=== PATIENT | female | born 1950 | race Caucasian/White ===

== ENCOUNTER 2017-07-20 18:43 | Emergency (ER) | payer BC, OTHER ==
--- NOTE | 2017-07-20 19:44 | RAD REPORT ---
EXAM DESCRIPTION: RAD - Ribs Right - 07/20/2017 7:29 pm CLINICAL HISTORY: History of fall, chest pain COMPARISON: None. FINDINGS: The bones are quite osteopenic. Linear opacities are present in the right lung. A small am ount of pleural fluid is probably present as well. No displaced fracture is clearly seen, however ass essment is limited by the degree of osteopenia. If further evaluation is clinically needed, noncontra st CT chest may be considered.
--- NOTE | 2017-07-20 19:53 | ER ---
Nurse's Notes [facility] Name: Shannan Patel Age: 67 yrs Sex: Female : 1950 Arrival Date: 07/20/2017 Time: 18:43 Bed 25 Private MD: Husam Valente E Diagnosis: Fall (on) (from) unspecified stairs and steps;Contusion of right back wall of thorax;Chronic obstructive pulmonary disease, unspecified Presentation: 07/20 18:57 Presenting complaint: Patient states: i fell a couple of days ago and hit my R rib area hj to the bath tub, hit head but denies LOC; denies taking blood thinners; pain 02/11;. Transition of care: patient was not received from another setting of care. Onset of symptoms was July 20, 2017. Care prior to arrival: None. 18:57 Method Of Arrival: Ambulatory 18:57 Acuity: DEVANTE 4 hj Triage Assessment: 19:00 General: Appears in no apparent distress. uncomfortable, Behavior is calm, cooperative, hj appropriate for age. Pain: Complains of pain in right mid back and right low back. Historical: - Allergies: 19:00 Codeine (Hives); hj - Home Meds: 19:00 diclofenac sodium 75 mg Oral TbEC 1 tab 2 times per day [Active]; doxepin 25 mg Oral hj cap 1 cap once daily [Active]; [place] 10-325 mg Oral tab 1 tab every 4-6 hours for Pain [Active]; omeprazole 40 mg Oral cpDR 1 cap once daily [Active]; Stiolto Respimat 2.5-2.5 mcg/actuation inhalation mist 2 puffs once daily [Active]; - PMHx: 19:00 cervical cancer; COPD; degenerative bone disease; Gastric Reflux; Herniated disc; hj ovarian cancer; Pneumonia; sciatica; - PSHx: 19:00 Hysterectomy; Tubal ligation; L hand; R foot; R ear; hj - Immunization history:: Adult Immunizations up to date. - Social history:: Smoking status: Patient uses tobacco products, denies chronic smoking, but will smoke occasionally, Patient uses Patient/guardian denies using alcohol, street drugs. Screenin:15 Abuse screen: Denies threats or abuse. Nutritional screening: No deficits noted. tl3 Tuberculosis screening: No symptoms or risk factors identified. Fall Risk Fall in past 12 months (25 points). Assessment: 19:15 General: Appears uncomfortable, well groomed, well developed, well nourished, Behavior tl3 is calm, cooperative, appropriate for age. Pain:. Neuro: Level of Consciousness is awake, alert, obeys commands. 19:15 Cardiovascular: Heart tones S1 S2 present Capillary refill < 3 seconds. Respiratory: tl3 Airway is patent Trachea midline Breath sounds are clear bilaterally. GI: Abdomen is round non-distended, Bowel sounds present X 4 quads. : No signs and/or symptoms were reported regarding the genitourinary system. EENT: No signs and/or symptoms were reported regarding the EENT system. Derm: No signs and/or symptoms reported regarding the dermatologic system. Musculoskeletal: Reports since pt slipped in bathroom three days ago and hit right side of ribs. 20:36 Reassessment: No changes from previously documented assessment. Patient and/or family tl3 updated on plan of care and expected duration. Pain level reassessed. Patient is alert, oriented x 3, equal unlabored respirations, skin warm/dry/pink. pt instructed on use of incintive spirometer, encouraged to use every hour while awake, also encouraged to encourage pt to use spirimoter. Vital Signs: 19:01 BP 130 / 83; Pulse 75; Resp 18; Temp 98.7(TE); Pulse Ox 96% on R/A; Weight 81.65 kg; hj Height 5 ft. 8 in. (172.72 cm); Pain 10/10; 20:30 BP 149 / 71; Pulse 71; Resp 18; Pulse Ox 98% on R/A; tl3 19:01 Body Mass Index 27.37 (81.65 kg, 172.72 cm) ED Course: 18:43 Patient arrived in ED. mr 18:44 Husam Valente MD is Private Physician. mr 18:52 [facility]C [facility] snw 18:52 Ezra Ye MD is Attending Physician. snw 18:58 Triage completed. hj 19:01 Arm band placed on right wrist. hj 19:12 Sadie Hassan, LUZ ELENA is Primary Nurse. tl3 19:15 Resting quietly. tl3 19:15 Patient has correct armband on for positive identification. Bed in low position. Call tl3 light in reach. Side rails up X2. Adult w/ patient. Door closed. Lights dimmed. Warm blanket given. 19:15 No provider procedures requiring assistance completed. Patient did not have IV access tl3 during this emergency room visit. 19:19 Patient moved to radiology via wheelchair. tl3 19:25 X-ray completed. Patient tolerated procedure well. tm4 19:50 Husam Valente MD is Referral Physician. snw 20:01 INCENTIVE SPIROMETRY Sent. tl3 Administered Medications: 20:28 Drug: morphine 4 mg {Note: prepared first 4mg of morphine for iv administration, tl3 watsted in pyxis.} Route: IM; Site: left gluteus; 21:40 Follow up: Response: No adverse reaction; Pain is decreased tl3 20:28 Drug: Zithromax 500 mg Route: PO; tl3 20:38 Follow up: Response: No adverse reaction tl3 Outcome: 19:52 Discharge ordered by . snw 21:42 Patient left the ED. tl3 07/21 00:12 Discharged to home via wheelchair, with significant other. tl3 Condition: stable Discharge instructions given to patient, family, Instructed on discharge instructions, Demonstrated understanding of instructions, follow-up care, medications, Prescriptions given X 1, 2. Signatures: Gala Lamas, BODY LINE FINISHER-C BODY LINE FINISHER-Csnw Yeni Castañeda Caryn Lara tm4 Jose Feliciano RN RN Sadie Kerns RN RN tl3 Corrections: (The following items were deleted from the chart) 07/20 19:03 19:01 Pulse 75bpm; Resp 18bpm; Pulse Ox 96% RA; Temp 98.7F Temporal; 81.65 kg; Height 5 hj ft. 8 in.; BMI: 27.3; Pain 10/10; hj
--- NOTE | 2017-07-20 19:53 | EDPHYS ---
Physician Documentation [facility] Name: Shannan Patel Age: 67 yrs Sex: Female : 1950 Arrival Date: 07/20/2017 Time: 18:43 Bed 25 Private MD: Husam Valente E ED Physician Ezra Ye HPI: 07/20 19:57 This 67 yrs old Female presents to ER via Ambulatory with complaints of Rib snw Pain. 19:57 Onset: The symptoms/episode began/occurred suddenly, 3 day(s) ago, and became snw persistent. Associated signs and symptoms: The patient has no apparent associated signs or symptoms. Modifying factors: The patient symptoms are alleviated by nothing. It is unknown whether or not the patient has had similar symptoms in the past. Sees Dr. Chiki Dewitt for pain mgmt and also Dr. Gerhard Dewitt for pulmonology. Historical: - Allergies: 19:00 Codeine (Hives); hj - Home Meds: 19:00 diclofenac sodium 75 mg Oral TbEC 1 tab 2 times per day [Active]; doxepin 25 mg Oral hj cap 1 cap once daily [Active]; [place] 10-325 mg Oral tab 1 tab every 4-6 hours for Pain [Active]; omeprazole 40 mg Oral cpDR 1 cap once daily [Active]; Stiolto Respimat 2.5-2.5 mcg/actuation inhalation mist 2 puffs once daily [Active]; - PMHx: 19:00 cervical cancer; COPD; degenerative bone disease; Gastric Reflux; Herniated disc; hj ovarian cancer; Pneumonia; sciatica; - PSHx: 19:00 Hysterectomy; Tubal ligation; L hand; R foot; R ear; hj - Immunization history:: Adult Immunizations up to date. - Social history:: Smoking status: Patient uses tobacco products, denies chronic smoking, but will smoke occasionally, Patient uses Patient/guardian denies using alcohol, street drugs. ROS: 19:57 Constitutional: Negative for fever, chills, and weight loss, Eyes: Negative for injury, snw pain, redness, and discharge, ENT: Negative for injury, pain, and discharge, Neck: Negative for injury, pain, and swelling, Cardiovascular: Negative for chest pain, palpitations, and edema, Respiratory: Negative for shortness of breath, cough, wheezing, and pleuritic chest pain, Abdomen/GI: Negative for abdominal pain, nausea, vomiting, diarrhea, and constipation, : Negative for injury, bleeding, discharge, and swelling, MS/Extremity: Negative for injury and deformity, Skin: Negative for injury, rash, and discoloration, Neuro: Negative for headache, weakness, numbness, tingling, and seizure. 19:57 Back: Positive for injury or acute deformity, pain at rest, pain with movement, of the right subscapular area and right mid back. Exam: 19:54 Constitutional: This is a well developed, well nourished patient who is awake, alert, snw and in no acute distress. Head/Face: Normocephalic, atraumatic. Eyes: Pupils equal round and reactive to light, extra-ocular motions intact. Lids and lashes normal. Conjunctiva and sclera are non-icteric and not injected. Cornea within normal limits. Periorbital areas with no swelling, redness, or edema. ENT: Nares patent. No nasal discharge, no septal abnormalities noted. Tympanic membranes are normal and external auditory canals are clear. Oropharynx with no redness, swelling, or masses, exudates, or evidence of obstruction, uvula midline. Mucous membranes moist. Neck: Trachea midline, no thyromegaly or masses palpated, and no cervical lymphadenopathy. Supple, full range of motion without nuchal rigidity, or vertebral point tenderness. No Meningismus. Chest/axilla: Normal chest wall appearance and motion. Nontender with no deformity. No lesions are appreciated. Cardiovascular: Regular rate and rhythm with a normal S1 and S2. No gallops, murmurs, or rubs. Normal PMI, no JVD. No pulse deficits. Abdomen/GI: Soft, non-tender, with normal bowel sounds. No distension or tympany. No guarding or rebound. No evidence of tenderness throughout. Skin: Warm, dry with normal turgor. Normal color with no rashes, no lesions, and no evidence of cellulitis. MS/ Extremity: Pulses equal, no cyanosis. Neurovascular intact. Full, normal range of motion. Neuro: Awake and alert, GCS 15, oriented to person, place, time, and situation. Cranial nerves II-XII grossly intact. Motor strength 5/5 in all extremities. Sensory grossly intact. Cerebellar exam normal. Normal gait. Psych: Awake, alert, with orientation to person, place and time. Behavior, mood, and affect are within normal limits. 19:54 Respiratory: the patient does not display signs of respiratory distress, Respirations: shallow respirations, that is mild, that is moderate, Breath sounds: are clear throughout. Vital Signs: 19:01 BP 130 / 83; Pulse 75; Resp 18; Temp 98.7(TE); Pulse Ox 96% on R/A; Weight 81.65 kg; hj Height 5 ft. 8 in. (172.72 cm); Pain 10/10; 20:30 BP 149 / 71; Pulse 71; Resp 18; Pulse Ox 98% on R/A; tl3 19:01 Body Mass Index 27.37 (81.65 kg, 172.72 cm) hj MDM: 19:03 Patient medically screened. snw 19:55 Data reviewed: vital signs, nurses notes. Data interpreted: Pulse oximetry: on room air snw is 96 %. Interpretation: normal. Counseling: I had a detailed discussion with the patient and/or guardian regarding: the historical points, exam findings, and any diagnostic results supporting the discharge/admit diagnosis, the presence of at least one elevated blood pressure reading (>120/80) during this emergency department visit, radiology results, the need for outpatient follow up, to return to the emergency department if symptoms worsen or persist or if there are any questions or concerns that arise at home. Special discussion: Based on the history and exam findings, there is no indication for further emergent testing or inpatient evaluation. I discussed with the patient/guardian the need to see the [employer] for further evaluation of the symptoms. I discussed with the patient/guardian the need to see the primary care provider for further evaluation of the symptoms. 07/20 19:05 Order name: Ribs Right XRAY snw 07/20 19:44 Order name: RAD; Complete Time: 19:48 EDMS 07/20 19:50 Order name: INCENTIVE SPIROMETRY snw Administered Medications: 20:28 Drug: morphine 4 mg {Note: prepared first 4mg of morphine for iv administration, tl3 watsted in pyxis.} Route: IM; Site: left gluteus; 21:40 Follow up: Response: No adverse reaction; Pain is decreased tl3 20:28 Drug: Zithromax 500 mg Route: PO; tl3 20:38 Follow up: Response: No adverse reaction tl3 Disposition: 07/21 10:58 Co-signature as Attending Physician, Ezra Ye MD I agree with the assessment and [facility] plan of care. Disposition: 07/20/17 19:52 Discharged to Home. Impression: Fall (on) (from) unspecified stairs and steps, Contusion of right back wall of thorax, Chronic obstructive pulmonary disease, unspecified. - Condition is Stable. - Discharge Instructions: Rib Contusion, Chronic Obstructive Pulmonary Disease, Fall Prevention and Home Safety. - Prescriptions for Albuterol Sulfate 90 mcg/actuation - inhale 1-2 puff by INHALATION route every 4-6 hours; 1 Inhaler. Zithromax 500 mg Oral Tablet - take 1 tablet by ORAL route once daily for 5 days; 5 tablet. - Medication Reconciliation Form, Thank You Letter, Antibiotic Education, Prescription Opioid Use form. - Follow up: Husam Valente MD; When: 2 - 3 days; Reason: Recheck today's complaints, Continuance of care, Re-evaluation by your physician. Follow up: Emergency Department; When: As needed; Reason: Worsening of condition. Signatures: Dispatcher [employer] Ezra Parish MD MD cha Therrien, Shelly, NEMATOLOGIST-C NEMATOLOGIST-Csnw Jose Feliciano, Sadie Srinivasan RN, RN RN tl3
[2017-07-20] MEDS ORDERED: AZITHROMYCIN 250 MG TAB ONE (20:22)
[2017-07-20] MEDS ORDERED: MORPHINE 4 MG/ML SYR ONE ×2 (20:23→20:42)
[2017-07-20 21:54] VITALS: TEMP 98.7
[2017-07-20 21:55] VITALS: BP 149/71; O2SAT 98
== END 2017-07-20 21:42 | disposition home or self-care (01) ==
LOC: ER 18:43
DX: S20.221A Contusion of right back wall of thorax, initial encounter (principal); J44.9 Chronic obstructive pulmonary disease, unspecified; W10.9XXA Fall (on) (from) unspecified stairs and steps, initial encounter; Y93.9 Activity, unspecified; Y92.89 Other specified places as the place of occurrence of the external cause; Z88.5 Allergy status to narcotic agent; Z85.41 Personal history of malignant neoplasm of cervix uteri; Z85.43 Personal history of malignant neoplasm of ovary; Z72.0 Tobacco use
CPT/HCPCS: 96372; 99283

== ENCOUNTER 2017-08-13 21:26 | Observation (INO) | payer BC, OTHER ==
--- NOTE | 2017-08-13 22:34 | ER ---
Nurse's Notes [facility] Name: Shannan Patel Age: 67 yrs Sex: Female : 1950 Arrival Date: 08/13/2017 Time: 21:28 Bed 5 Private MD: Husam Valente E Diagnosis: Chronic obstructive pulmonary disease with (acute) exacerbation;Hypoxemia Presentation: 08/13 21:31 Presenting complaint: Patient states: SOB and lightheaded since this am. States she is aa1 also having a productive cough. Transition of care: patient was not received from another setting of care. Onset of symptoms was August 13, 2017. Care prior to arrival: None. 21:31 Method Of Arrival: Ambulatory aa1 21:31 Acuity: DEVANTE 3 aa1 Triage Assessment: 21:33 General: Appears in no apparent distress. comfortable, Behavior is calm, cooperative, aa1 appropriate for age. 23:35 Respiratory: Reports cough that is productive, pain with cough Onset: The bp symptoms/episode began/occurred 5 days, the patient has moderate shortness of breath. Historical: - Allergies: 21:33 Codeine (Hives); aa1 - Home Meds: 21:33 diclofenac sodium 75 mg Oral TbEC 1 tab 2 times per day [Active]; doxepin 25 mg Oral aa1 cap 1 cap once daily [Active]; [place] 10-325 mg Oral tab 1 tab every 4-6 hours for Pain [Active]; omeprazole 40 mg Oral cpDR 1 cap once daily [Active]; Stiolto Respimat 2.5-2.5 mcg/actuation inhalation mist 2 puffs once daily [Active]; [place] 500-20 mg Oral TbID 1 tab 2 times per day [Active]; - PMHx: 21:33 cervical cancer; COPD; degenerative bone disease; Gastric Reflux; Herniated disc; aa1 ovarian cancer; Pneumonia; sciatica; - PSHx: 21:33 Hysterectomy; Tubal ligation; L hand; R foot; R ear; aa1 - Immunization history:: Flu vaccine is up to date. - Social history:: Smoking status: Patient uses tobacco products, denies chronic smoking, but will smoke occasionally. - Family history:: not pertinent. Screenin:34 Abuse screen: Denies threats or abuse. Denies injuries from another. Nutritional bp screening: No deficits noted. Tuberculosis screening: No symptoms or risk factors identified. Fall Risk None identified. Assessment: 22:00 General: Appears distressed, comfortable, obese, Behavior is cooperative, appropriate bp for age, anxious. Pain: Complains of pain in abdomen. Neuro: Level of Consciousness is awake, alert, obeys commands, Oriented to person, place, time, situation, Appropriate for age. Cardiovascular: Rhythm is sinus rhythm. Respiratory: Airway is patent Respiratory effort is labored, Respiratory pattern is tachypnea Breath sounds with crackles. GI: No signs and/or symptoms were reported involving the gastrointestinal system. : No signs and/or symptoms were reported regarding the genitourinary system. EENT: No deficits noted. Derm: No deficits noted. Musculoskeletal: Circulation, motion, and sensation intact. Range of motion: intact in all extremities. Vital Signs: 21:33 BP 134 / 94; Pulse 91; Resp 24; Temp 98.7(O); Pulse Ox 95% on R/A; Weight 79.38 kg; aa1 Height 5 ft. 8 in. (172.72 cm); Pain 10/10; 22:30 BP 142 / 82; Pulse 81; Resp 19; Pulse Ox 95% ; bp 23:30 BP 121 / 72; Pulse 81; Resp 18; Pulse Ox 100% ; bp 21:33 Body Mass Index 26.61 (79.38 kg, 172.72 cm) aa1 ED Course: 21:28 Patient arrived in ED. as 21:28 Husam Valente MD is Private Physician. as 21:32 Triage completed. aa1 21:33 Arm band placed on right wrist. Patient placed in an exam room, on a stretcher. aa1 21:37 Cecilio Albrecht, LUZ ELENA is Primary Nurse. bp 21:45 Ezra Ye MD is Attending Physician. maria m 21:56 X-ray completed. Portable x-ray completed in exam room. Patient tolerated procedure ml well. 21:57 XRAY Chest (1 view) In Process Unspecified. EDMS 22:32 Gamal Brantley MD is Hospitalizing Provider. maria m 22:55 Inserted saline lock: 20 gauge in right antecubital area, using aseptic technique. lp1 Blood collected. 23:10 No provider procedures requiring assistance completed. IV discontinued, intact, bp bleeding controlled, No redness/swelling at site. Pressure dressing applied. Inserted saline lock: 22 gauge in left hand, using aseptic technique. Blood collected. 23:34 Patient has correct armband on for positive identification. Bed in low position. Call bp light in reach. Side rails up X2. Administered Medications: 23:10 Drug: Decadron - Dexamethasone 10 mg Route: IVP; Site: left hand; bp 23:38 Follow up: Response: No adverse reaction bp 23:15 Drug: Rocephin - (cefTRIAXone) 1 grams Route: IVPB; Infused Over: 30 mins; Site: left bp hand; 23:40 Follow up: IV Status: Completed infusion bp 23:15 Drug: SOLU-Medrol 125 mg Route: IVP; Site: left hand; bp 23:39 Follow up: Response: No adverse reaction bp 23:15 Drug: Albuterol - atroVENT (3:1) (2.5 mg - 0.5 mg) 3 ml Route: Nebulizer; bp 23:38 Follow up: Response: Marked relief of symptoms bp 23:15 Drug: morphine 4 mg Route: IVP; Site: left hand; bp 23:38 Follow up: Response: Pain is decreased bp 23:15 Drug: Zofran 4 mg Route: IVP; Site: left hand; bp 23:37 Follow up: Response: Pain is decreased bp Outcome: 22:34 Decision to Hospitalize by Provider. maria m 08/14 00:11 Admitted to Tele accompanied by tech, via stretcher, with oxygen, Report called to bp OSPINA RN BY TALON LAGUNA Condition: stable Instructed on the need for admit. 00:59 Patient left the ED. bp Signatures: Dispatcher [employer] Alethea Franklin, RN RN aa1 Ezra Ye MD MD cha Martinez, Amelia as Lopez, Melissa ml Pena, Laura, RN RN lp1 Cecilio Albrecht RN RN bp
--- NOTE | 2017-08-13 22:35 | EDPHYS ---
Physician Documentation [facility] Name: Shannan Patel Age: 67 yrs Sex: Female : 1950 Arrival Date: 08/13/2017 Time: 21:28 Bed 5 Private MD: Husam Valente E ED Physician Ezra Ye HPI: 08/13 21:46 This 67 yrs old Female presents to ER via Ambulatory with complaints of maria m Shortness Of Breath, Dizziness. 21:46 The patient has shortness of breath at rest, with light activity. Onset: The maria m symptoms/episode began/occurred 3 day(s) ago. Duration: The symptoms are continuous, and are steadily getting worse. Associated signs and symptoms: The patient has no apparent associated signs or symptoms. Severity of symptoms: At their worst the symptoms were mild moderate in the emergency department the symptoms are unchanged. Historical: - Allergies: 21:33 Codeine (Hives); aa1 - Home Meds: 21:33 diclofenac sodium 75 mg Oral TbEC 1 tab 2 times per day [Active]; doxepin 25 mg Oral aa1 cap 1 cap once daily [Active]; Galt 10-325 mg Oral tab 1 tab every 4-6 hours for Pain [Active]; omeprazole 40 mg Oral cpDR 1 cap once daily [Active]; Stiolto Respimat 2.5-2.5 mcg/actuation inhalation mist 2 puffs once daily [Active]; Vimovo 500-20 mg Oral TbID 1 tab 2 times per day [Active]; - PMHx: 21:33 cervical cancer; COPD; degenerative bone disease; Gastric Reflux; Herniated disc; aa1 ovarian cancer; Pneumonia; sciatica; - PSHx: 21:33 Hysterectomy; Tubal ligation; L hand; R foot; R ear; aa1 - Immunization history:: Flu vaccine is up to date. - Social history:: Smoking status: Patient uses tobacco products, denies chronic smoking, but will smoke occasionally. - Family history:: not pertinent. ROS: 21:46 Constitutional: Negative for fever, chills, and weight loss, Eyes: Negative for injury, maria m pain, redness, and discharge, ENT: Negative for injury, pain, and discharge, Neck: Negative for injury, pain, and swelling, Cardiovascular: Negative for chest pain, palpitations, and edema, Abdomen/GI: Negative for abdominal pain, nausea, vomiting, diarrhea, and constipation, Back: Negative for injury and pain, : Negative for injury, bleeding, discharge, and swelling, MS/Extremity: Negative for injury and deformity, Skin: Negative for injury, rash, and discoloration, Neuro: Negative for headache, weakness, numbness, tingling, and seizure, Psych: Negative for depression, anxiety, suicide ideation, homicidal ideation, and hallucinations, Allergy/Immunology: Negative for hives, rash, and allergies, Endocrine: Negative for neck swelling, polydipsia, polyuria, polyphagia, and marked weight changes, Hematologic/Lymphatic: Negative for swollen nodes, abnormal bleeding, and unusual bruising. 21:46 Respiratory: Positive for cough, dyspnea on exertion, shortness of breath, at rest. wheezing, inspiratory, expiratory. Exam: 21:46 Constitutional: This is a well developed, well nourished patient who is awake, alert, maria m and in no acute distress. Head/Face: Normocephalic, atraumatic. Eyes: Pupils equal round and reactive to light, extra-ocular motions intact. Lids and lashes normal. Conjunctiva and sclera are non-icteric and not injected. Cornea within normal limits. Periorbital areas with no swelling, redness, or edema. ENT: Nares patent. No nasal discharge, no septal abnormalities noted. Tympanic membranes are normal and external auditory canals are clear. Oropharynx with no redness, swelling, or masses, exudates, or evidence of obstruction, uvula midline. Mucous membranes moist. Neck: Trachea midline, no thyromegaly or masses palpated, and no cervical lymphadenopathy. Supple, full range of motion without nuchal rigidity, or vertebral point tenderness. No Meningismus. Chest/axilla: Normal chest wall appearance and motion. Nontender with no deformity. No lesions are appreciated. Cardiovascular: Regular rate and rhythm with a normal S1 and S2. No gallops, murmurs, or rubs. Normal PMI, no JVD. No pulse deficits. Abdomen/GI: Soft, non-tender, with normal bowel sounds. No distension or tympany. No guarding or rebound. No evidence of tenderness throughout. Back: No spinal tenderness. No costovertebral tenderness. Full range of motion. Female : Normal external genitalia. Skin: Warm, dry with normal turgor. Normal color with no rashes, no lesions, and no evidence of cellulitis. MS/ Extremity: Pulses equal, no cyanosis. Neurovascular intact. Full, normal range of motion. Neuro: Awake and alert, GCS 15, oriented to person, place, time, and situation. Cranial nerves II-XII grossly intact. Motor strength 5/5 in all extremities. Sensory grossly intact. Cerebellar exam normal. Normal gait. Psych: Awake, alert, with orientation to person, place and time. Behavior, mood, and affect are within normal limits. 21:46 Respiratory: mild respiratory distress is noted, moderate respiratory distress is noted, Respirations: normal, Breath sounds: decreased breath sounds, rhonchi, wheezing: inspiratory expiratory Vital Signs: 21:33 BP 134 / 94; Pulse 91; Resp 24; Temp 98.7(O); Pulse Ox 95% on R/A; Weight 79.38 kg; aa1 Height 5 ft. 8 in. (172.72 cm); Pain 10/10; 22:30 BP 142 / 82; Pulse 81; Resp 19; Pulse Ox 95% ; bp 23:30 BP 121 / 72; Pulse 81; Resp 18; Pulse Ox 100% ; bp 21:33 Body Mass Index 26.61 (79.38 kg, 172.72 cm) aa1 MDM: 21:46 Data reviewed: vital signs, nurses notes, lab test result(s), EKG, radiologic studies, maria m plain films. 21:55 Patient medically screened. [facility] 08/13 21:46 Order name: Basic Metabolic Panel [facility] 08/13 21:46 Order name: BNP [facility] 08/13 21:46 Order name: CBC with Diff 08/13 21:46 Order name: Ckmb [facility] 08/13 21:46 Order name: CPK [facility] 08/13 21:46 Order name: LFT's [facility] 08/13 21:46 Order name: Magnesium [facility] 08/13 21:46 Order name: PT-INR [facility] 08/13 21:46 Order name: Ptt, Activated [facility] 08/13 21:46 Order name: Troponin (emerg Dept Use Only) [facility] 08/13 21:46 Order name: Blood Culture Adult (2) [facility] 08/13 21:46 Order name: Procalcitonin [facility] 08/13 21:46 Order name: Flu [facility] 08/13 21:47 Order name: Basic Metabolic Panel [facility] 08/13 21:46 Order name: XRAY Chest (1 view) [facility] 08/13 21:46 Order name: EKG; Complete Time: 21:47 [facility] 08/13 21:46 Order name: Cardiac monitoring; Complete Time: 21:59 [facility] 08/13 21:47 Order name: BNP B-Type Natriuretic Peptide [facility] 08/13 21:47 Order name: CBC with Automated Diff [facility] 08/13 21:47 Order name: CKMB Creatine Kinase MB [facility] 08/13 21:47 Order name: Creatine Phosphokinase [facility] 08/13 22:37 Order name: CONS Physician Consult [facility] 08/13 21:46 Order name: EKG - Nurse/Tech; Complete Time: 23:44 [facility] 08/13 21:46 Order name: IV Saline Lock; Complete Time: 23:44 [facility] 08/13 21:46 Order name: Labs collected and sent; Complete Time: 23:44 [facility] 08/13 21:46 Order name: O2 Per Protocol; Complete Time: 23:44 [facility] 08/13 21:46 Order name: O2 Sat Monitoring; Complete Time: 23:44 [facility] Administered Medications: 23:10 Drug: Decadron - Dexamethasone 10 mg Route: IVP; Site: left hand; bp 23:38 Follow up: Response: No adverse reaction bp 23:15 Drug: Rocephin - (cefTRIAXone) 1 grams Route: IVPB; Infused Over: 30 mins; Site: left bp hand; 23:40 Follow up: IV Status: Completed infusion bp 23:15 Drug: SOLU-Medrol 125 mg Route: IVP; Site: left hand; bp 23:39 Follow up: Response: No adverse reaction bp 23:15 Drug: Albuterol - atroVENT (3:1) (2.5 mg - 0.5 mg) 3 ml Route: Nebulizer; bp 23:38 Follow up: Response: Marked relief of symptoms bp 23:15 Drug: morphine 4 mg Route: IVP; Site: left hand; bp 23:38 Follow up: Response: Pain is decreased bp 23:15 Drug: Zofran 4 mg Route: IVP; Site: left hand; bp 23:37 Follow up: Response: Pain is decreased bp Disposition: 08/13/17 22:34 Hospitalization ordered by Gamal Brantley for Inpatient Admission. Preliminary diagnosis are Chronic obstructive pulmonary disease with (acute) exacerbation, Hypoxemia. - Bed requested for Telemetry/MedSurg (Inpatient). - Status is Inpatient Admission. bp - Condition is Fair. - Problem is new. - Symptoms have improved. UTI on Admission? No Signatures: Dispatcher [employer] EDBeverly Mensah RN RN mw Kern, Alissa, RN RN aa1 Ezra Ye MD MD cha Peltier, Brian, RN RN bp Corrections: (The following items were deleted from the chart) 21:56 21:39 Chest Pa And Lat (2 Views)+[email or web address] ordered. EDMS EDMS
[2017-08-13 22:58] LABS: Absolute Lymphocytes (CBC) 2.4 K/uL (0.7-4.9); Absolute Monocytes 0.8 K/uL (0.1-1.3); Absolute Neutrophil 5.9 K/uL (1.8-8.0); Basophils % 1.2 % (0-1.3); Eosinophils % 7.1 % (0-4.4); Hematocrit 39.5 % (36.0-45.0); Lymphocytes % 24.4 % (15.3-44.8); MCH 27.4 pg (27.0-35.0); MCV 84.3 fL (80-100); MPV 9.5 fL (7.6-11.3); Monocytes % 7.8 % (3.3-12.3); RBC Red Blood Cell Count 4.68 M/uL (3.86-4.86)
[2017-08-13] MEDS ORDERED: METHYLPREDNISOLONE 125 MG INJ ONE (22:58)
[2017-08-13] MEDS ORDERED: ALBUTEROL 2.5 MG/3 ML NEB SOL ONE (22:58)
[2017-08-13] MEDS ORDERED: IPRATROPIUM BROM 0.5MG/2.5ML ONE (22:58)
[2017-08-13] MEDS ORDERED: DEXAMETHASONE 10 MG/ML VIAL ONE (22:58)
[2017-08-13] MEDS ORDERED: AZITHROMYCIN 500 MG/250 ML BAG ONE (22:59)
[2017-08-13] MEDS ORDERED: ONDANSETRON 4 MG/2 ML VIAL ONE (22:59)
[2017-08-13] MEDS ORDERED: CEFTRIAXONE/SWI 1gm 1 GM/10 ML SYR ONE (22:59)
[2017-08-13] MEDS ORDERED: MORPHINE 4 MG/ML SYR ONE (22:59)
[2017-08-13] MEDS ORDERED: ONDANSETRON 4 MG/2 ML VIAL IV PRN (23:02)
[2017-08-13] MEDS ORDERED: ACETAMINOPHEN 500 MG TAB PO PRN (23:02)
[2017-08-13 23:10] LABS: Potassium 3.9 mEq/L (3.6-5.0)
[2017-08-13 23:16] LABS: Albumin 3.6 g/dL (3.2-5.5); Bilirubin Direct 0.1 mg/dL (0-0.2); Bilirubin Total 0.5 mg/dL (0.3-1.2); CKMB Creatine Kinase MB 1.1 ng/ml (0.3-4.0); Magnesium 1.8 mg/dL (1.8-2.5)
[2017-08-13 23:45] LABS: Protime INR 1.03
[2017-08-14] MEDS: IPRATROPIUM BROM 0.5MG/2.5ML NEB SCH ×4 (01:23→19:19)
[2017-08-14] MEDS: ALBUTEROL 2.5 MG/3 ML NEB SOL NEB SCH ×4 (01:23→19:19)
[2017-08-14 01:50] VITALS: BMI 27.3
[2017-08-14 02:54] LABS: Urine Appearance CLEAR; Urine Bilirubin NEGATIVE (NEG); Urine Blood NEGATIVE (NEG); Urine Color YELLOW; Urine Glucose NEGATIVE (NEG); Urine Protein NEGATIVE (NEG); Urine Specific Gravity 1.025 (1.005-1.030); Urine Urobilinogen 0.2 mg/dL (0.2-1.0)
[2017-08-14 02:58] LABS: Urine Microscopic Reflex ORDER UMIC
[2017-08-14 03:21] LABS: Urine Bacteria <20 /HPF (<20); Urine Culture Reflex Order NOT NEEDED; Urine RBC <5 /HPF (NONE SEEN)
[2017-08-14] MEDS ORDERED: MORPHINE 5 MG/ML VIAL IV ONE (03:41)
[2017-08-14] MEDS ORDERED: NA CHLORIDE 0.9% 500 ML IV ONE (03:42)
--- NOTE | 2017-08-14 04:51 | P.HP ---
Certification for Inpatient Patient admitted to: Observation With expected LOS: <2 Midnights Patient will require the following post-hospital care: None Practitioner: I am a practitioner with admitting privileges, knowledge of patient current condition, hospital course, and medical plan of care. Services: Services provided to patient in accordance with Admission requirements found in Title 42 Section 412.3 of the Code of Federal Regulations Patient History Date of Service: 08/13/17 Reason for admission: Shortness of breath History of Present Illness: Patient is a 67-year-old female who presents to the hospital with difficulty breathing. Patient states she has a history of COPD but has not seen her emergency room physician assistant in quite some time. She was given a Combivent inhaler by her primary care provider which she uses for her breathing. She was told to use it once a day. She also has chronic pain issues for which she sees Dr. Juan Manuel Shore. She was given [place] for her chronic pain. She recently fell and hit her right side. She suffered some rib contusions. She did not have any fractures. She says when she saw her pain doctor she was having some difficulty with her breathing. She has some upper respiratory symptoms. Her breathing was getting worse so she came into the emergency room. The emergency room physician wanted to admit her overnight for further evaluation. Allergies codeine [Codeine] Allergy (Intermediate, Verified 08/14/17 01:00) Rash Home Medications: Doxepin HCl [Sinequan*] 25 mg PO BEDTIME 06/04/15 Omeprazole [Prilosec] 40 mg PO DAILY 06/04/15 Diclofenac Na [Voltaren D.r*] 1 tab PO BIDWM 11/01/16 Hydrocodone Bit/Acetaminophen [[place] 10-325 Tablet] 1 each PO Q6H PRN 11/01/16 Naproxen/Esomeprazole Mag [Vimovo Dr 500-20 mg Tablet] 1 tab PO BID 11/01/16 Tramadol HCl [Ultram] 50 mg PO BID PRN 11/01/16 Prednisone [Deltasone*] 10 mg PO BID #20 tab 11/02/16 Tiotropium Br/Olodaterol HCl [Stiolto Respimat Inhal [place]] 4 gm IH DAILY #30 inhaler 11/02/16 - Past Medical/Surgical History Has patient received pneumonia vaccine in the past: No Diabetic: No -: COPD -: GERD -: OVARIAN CA -: DEGENERATIVE BONE DISEASE-BACK -: SCIATICA -: POLYPS -: HERNIA -: HX HEP C-CURED -: HYSTERECTOMY -: LEFT EAR SX -: TUBE LIGATION -: L WRIST -: R FOOT -: POLYP REMOVAL - Family History Father Medical History: Lung disease Mother Medical History: Heart disease, Lung disease Notes: asthma, emphysema, lung cancer, bronchitis Brother History Unknown: Yes Medical History: Cancer Notes: bladder cancer, lung cancer Sister History Unknown: Yes Medical History: Cancer Notes: throat cancer - Social History Smoking Status: Current some day smoker Alcohol use: Yes CD- Drugs: No Caffeine use: Yes Place of Residence: Home Review of Systems 10-point ROS is otherwise unremarkable Physical Examination - Vital Signs Temperature: 96.9 F Blood Pressure: 99/56 Pulse: 87 Respirations: 18 Pulse Ox (%): 97 - Physical Exam General: Alert, In no apparent distress, Oriented x3 HEENT: Atraumatic, PERRLA, Mucous membr. moist/pink, EOMI, Sclerae nonicteric Neck: Supple, 2+ carotid pulse no bruit, No LAD, Without JVD or thyroid abnormality Respiratory: Diminished, Expiratory wheezes (Minimal) Cardiovascular: Regular rate/rhythm, Normal S1 S2, No murmurs Gastrointestinal: Normal bowel sounds, Soft and benign, Non-distended, No tenderness Musculoskeletal: No clubbing, No swelling, No tenderness Integumentary: No rashes Neurological: Normal gait, Normal speech, Normal strength at 5/5 x4 extr, Normal tone, Sensation intact, Cranial nerves 3-12 intact, Normal affect Lymphatics: No axilla or inguinal lymphadenopathy - Studies Microbiology Data (last 24 hrs): 08/13/17 22:30 Nasopharnyx Influenza Type A Antigen Screen - Final 08/13/17 22:30 Nasopharnyx Influenza Type B Antigen Screen - Final Assessment & Plan - Problems (Diagnosis) (1) Rib contusion Current Visit: Yes Status: Acute (2) Chronic pain syndrome Current Visit: Yes Status: Acute (3) COPD exacerbation Onset Date: 06/06/15 Current Visit: No Status: Acute (4) Chest pain Onset Date: 11/01/16 Current Visit: No Status: Acute (5) History of hepatitis C Current Visit: No Status: Chronic (6) History of ovarian cancer Current Visit: No Status: Chronic - Plan Plan: 1. Continue with nebs, steroids, and antibiotics 2. Pain control 3. Pulmonary consultation 4. O2 per protocol 5. Start her on long-acting beta agonist at discharge 6. GI and DVT prophylaxis Discharge Plan: Home Plan to discharge in: 24 Hours - Advance Directives Does patient have a Living Will: No Does patient have a Durable POA for Healthcare: No - Code Status/Comfort Care Code Status Assessed: Yes Code Status: Full Code Critical Care: No Time Spent Managing PTS Care (In Minutes): 50
[2017-08-14] MEDS: METHYLPREDNISOLONE 125 MG INJ IV SCH ×3 (05:16→13:30)
--- NOTE | 2017-08-14 07:01 | EKG ---
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
--- NOTE | 2017-08-14 07:57 | RAD REPORT ---
EXAM DESCRIPTION: Selam Single View08/13/2017 9:58 pm CLINICAL HISTORY: Cough COMPARISON: November 2016 FINDINGS: Right lung base is mildly hazy. The heart is normal size. A small hiatal hernia is present IMPRESSION: The right lung base is mildly hazy which may indicate a mild infiltrate
[2017-08-14] MEDS ORDERED: AZITHROMYCIN IV 250 MG in NA CHLORIDE 0.9% 250 ML IVPB SCH ×2 (09:00→21:00)
[2017-08-14] MEDS ORDERED: CEFTRIAXONE 1 GM/NS 50 ML 1 GM/50 ML BAG IV SCH (09:00)
[2017-08-14] MEDS: ENOXAPARIN 40 MG/0.4 ML SQ SCH (09:16)
[2017-08-14] MEDS: HYDROCODONE/APAP 10/325 TAB PO PRN ×2 (09:17→21:50)
--- NOTE | 2017-08-14 12:16 | P.CNS ---
Date of Consult: 08/14/17 Reason for Consult: COPD exacerbation Chief Complaint: Shortness of breath History of Present Illness: Patient is 67 years of age well known to me been sick for the past week had a flu started coughing up thick mucus this and appeared in the emergency room he has been using Combivent and Symbicort at home the also having heartburns patient has a lot of back problems and problems with the right foot Allergies codeine [Codeine] Allergy (Intermediate, Verified 08/14/17 01:00) Rash Home Medications: Doxepin HCl [Sinequan*] 25 mg PO BEDTIME 06/04/15 Omeprazole [Prilosec] 40 mg PO DAILY 06/04/15 Diclofenac Na [Voltaren D.r*] 1 tab PO BIDWM 11/01/16 Hydrocodone Bit/Acetaminophen [[place] 10-325 Tablet] 1 each PO Q6H PRN 11/01/16 Naproxen/Esomeprazole Mag [Vimovo Dr 500-20 mg Tablet] 1 tab PO BID 11/01/16 Tramadol HCl [Ultram] 50 mg PO BID PRN 11/01/16 Prednisone [Deltasone*] 10 mg PO BID #20 tab 11/02/16 Tiotropium Br/Olodaterol HCl [Stiolto Respimat Inhal [place]] 4 gm IH DAILY #30 inhaler 11/02/16 - Past Medical/Surgical History Diabetic: No -: COPD -: GERD -: OVARIAN CA -: DEGENERATIVE BONE DISEASE-BACK -: SCIATICA -: POLYPS -: HERNIA -: HX HEP C-CURED -: HYSTERECTOMY -: LEFT EAR SX -: TUBE LIGATION -: L WRIST -: R FOOT -: POLYP REMOVAL - Family History Father Medical History: Lung disease Mother Medical History: Heart disease, Lung disease Notes: asthma, emphysema, lung cancer, bronchitis Brother History Unknown: Yes Medical History: Cancer Notes: bladder cancer, lung cancer Sister History Unknown: Yes Medical History: Cancer Notes: throat cancer - Social History Smoking Status: Current some day smoker Alcohol use: Yes CD- Drugs: No Caffeine use: Yes Place of Residence: Home Review of Systems 10-point ROS is otherwise unremarkable General: Weakness Respiratory: Cough, Shortness of Breath Physical Examination Temp Pulse Resp BP Pulse Ox 96.9 F 65 16 111/57 L 94 08/14/17 08:00 08/14/17 08:00 08/14/17 08:00 08/14/17 08:00 08/14/17 08:00 General: Alert, Oriented x3, Mild distress HEENT: Atraumatic Neck: Supple Respiratory: Expiratory wheezes Cardiovascular: No edema, Regular rate/rhythm, Normal S1 S2 Gastrointestinal: Normal bowel sounds, Soft and benign - Problems (1) COPD exacerbation Onset Date: 08/14/17 Current Visit: Yes Status: Acute Plan: Patient is 67 years of age admitted with COPD exacerbation chest x-ray is clear labs unremarkable patient can be discharged home tomorrow on low-dose prednisone 10 b.i.d. for 10 days continue with the bronchodilators Levaquin for a 4 or 5 days and to follow with me in 2 weeks oxygenation vital signs are all stable cultures pending
[2017-08-14] MEDS: predniSONE 20 MG TAB PO SCH (20:28)
[2017-08-14] MEDS ORDERED: CEFTRIAXONE/SWI 1gm 1 GM/10 ML SYR IV SCH (21:00)
[2017-08-14 23:24] VITALS: O2SAT 98
[2017-08-15 00:22] VITALS: BP 119/62; TEMP 98.6
[2017-08-15] MEDS: ALBUTEROL 2.5 MG/3 ML NEB SOL NEB SCH ×2 (01:09→07:43)
[2017-08-15] MEDS: IPRATROPIUM BROM 0.5MG/2.5ML NEB SCH ×2 (01:09→07:43)
[2017-08-15] MEDS: HYDROCODONE/APAP 10/325 TAB PO PRN (04:28)
--- NOTE | 2017-08-15 06:53 | P.PN ---
Subjective Date of Service: 08/14/17 Subjective: No new changes, No C/O voiced, Improving Review of Systems 10-point ROS is otherwise unremarkable Physical Examination - Vital Signs Temperature: 98.6 F Blood Pressure: 119/62 Pulse: 68 Respirations: 18 Pulse Ox (%): 98 - Physical Exam General: Alert, In no apparent distress, Oriented x3 HEENT: Atraumatic, PERRLA, EOMI Neck: Supple, JVD not distended Respiratory: Clear to auscultation bilaterally, Normal air movement Cardiovascular: Regular rate/rhythm, Normal S1 S2 Gastrointestinal: Normal bowel sounds, No tenderness Musculoskeletal: No tenderness Integumentary: No rashes Neurological: Normal speech, Normal tone, Normal affect Lymphatics: No axilla or inguinal lymphadenopathy - Studies Medications List Reviewed: Yes Assessment & Plan - Problems (Diagnosis) (1) Rib contusion Onset Date: 08/14/17 Current Visit: Yes Status: Acute (2) Chronic pain syndrome Onset Date: 08/14/17 Current Visit: Yes Status: Acute (3) COPD exacerbation Onset Date: 06/06/15 Current Visit: No Status: Acute (4) Chest pain Onset Date: 11/01/16 Current Visit: No Status: Acute (5) History of hepatitis C Current Visit: No Status: Chronic (6) History of ovarian cancer Current Visit: No Status: Chronic - Plan Plan: Continue with current plan of care. Per Pulmonary possible discharge home in the morning 1. Continue with nebs, steroids, and antibiotics 2. Pain control 3. Pulmonary consultation appreciated 4. O2 per protocol 5. Start her on long-acting beta agonist at discharge 6. GI and DVT prophylaxis Discharge Plan: Home Plan to discharge in: 24 Hours - Advance Directives Does patient have a Living Will: No Does patient have a Durable POA for Healthcare: No - Code Status/Comfort Care Code Status: Full Code Critical Care: No Time Spent Managing PTS Care (In Minutes): 25
[2017-08-15] MEDS: ENOXAPARIN 40 MG/0.4 ML SQ SCH (08:38)
[2017-08-15] MEDS: predniSONE 20 MG TAB PO SCH (08:38)
[2017-08-15] MEDS ORDERED: levoFLOXacin 500 MG TAB PO SCH (09:00)
--- NOTE | 2017-08-21 08:05 | P.DS ---
Discharge Date: 08/15/17 Disposition: ROUTINE DISCHARGE Discharge Condition: GOOD Reason for Admission: Shortness of breath - Problems (1) Rib contusion Onset Date: 08/14/17 Status: Acute (2) Chronic pain syndrome Onset Date: 08/14/17 Status: Acute (3) COPD exacerbation Onset Date: 06/06/15 Status: Acute (4) Chest pain Onset Date: 11/01/16 Status: Acute (5) History of hepatitis C Status: Chronic (6) History of ovarian cancer Status: Chronic Brief History of Present Illness: Patient is a 67-year-old female who presents to the hospital with difficulty breathing. Patient states she has a history of COPD but has not seen her casino controller in quite some time. She was given a Combivent inhaler by her primary care provider which she uses for her breathing. She was told to use it once a day. She also has chronic pain issues for which she sees Dr. Juan Manuel Shore. She was given [place] for her chronic pain. She recently fell and hit her right side. She suffered some rib contusions. She did not have any fractures. She says when she saw her pain doctor she was having some difficulty with her breathing. She has some upper respiratory symptoms. Her breathing was getting worse so she came into the emergency room. The emergency room physician wanted to admit her overnight for further evaluation. Hospital Course: Patient's respiratory status has improved. Clinically, patient is doing much better. Patient is stable for discharge with outpt follow-up with pulmonary in 1 -2 weeks Vital Signs/Physical Exam: Temp Pulse Resp BP Pulse Ox 98.6 F 68 18 119/62 98 08/15/17 06:52 08/15/17 06:52 08/15/17 06:52 08/15/17 06:52 08/15/17 06:52 General: Alert, In no apparent distress, Oriented x3 Laboratory Data at Discharge: WBC 9.9 K/uL (4.3-10.9) 08/13/17 22:35 Hgb 12.8 g/dL (12.0-15.0) 08/13/17 22:35 Hct 39.5 % (36.0-45.0) 08/13/17 22:35 Plt Count 244 K/uL (152-406) 08/13/17 22:35 PT 12.2 SECONDS (9.5-12.5) 08/13/17 23:30 INR 1.03 08/13/17 23:30 APTT 25.9 SECONDS (24.3-36.9) 08/13/17 23:30 Sodium 136 mEq/L (135-145) 08/13/17 22:35 Potassium 3.9 mEq/L (3.6-5.0) 08/13/17 22:35 BUN 13 mg/dL (6-20) 08/13/17 22:35 Creatinine 0.68 mg/dL (0.44-1.00) 08/13/17 22:35 Glucose 102 mg/dL (65-120) 08/13/17 22:35 Magnesium 1.8 mg/dL (1.8-2.5) 08/13/17 22:35 Total Bilirubin 0.5 mg/dL (0.3-1.2) 08/13/17 22:35 AST 22 IU/L (10-42) 08/13/17 22:35 ALT 12 IU/L (10-60) 08/13/17 22:35 Alkaline Phosphatase 107 IU/L (42-121) 08/13/17 22:35 B-Natriuretic Peptide 39 pg/ml (<=100) 08/13/17 22:35 Home Medications: Doxepin HCl [Sinequan*] 25 mg PO BEDTIME 06/04/15 Omeprazole [Prilosec] 40 mg PO DAILY 06/04/15 Hydrocodone Bit/Acetaminophen [[place] 10-325 Tablet] 1 each PO Q6H PRN 11/01/16 Tramadol HCl [Ultram] 50 mg PO BID PRN 11/01/16 Tiotropium Br/Olodaterol HCl [Stiolto Respimat Inhal [place]] 4 gm IH DAILY #30 inhaler 11/02/16 Levofloxacin [Levaquin*] 500 mg PO DAILY #5 tab 08/15/17 Prednisone [Prednisone*] 20 mg PO BID #20 tab 08/15/17 New Medications: Levofloxacin [Levaquin*] 500 mg PO DAILY #5 tab Prednisone [Prednisone*] 20 mg PO BID #20 tab Patient Discharge Instructions: OK TO DC IV AND DC HOME. FOLLOW-UP WITH PRIMARY CARE PROVIDER IN 1-2 WEEKS. FOLLOW-UP WITH Pulmonary IN 1-2 WEEKS. RETURN TO THE ER IF symptoms worsen. CALL or TEXT DR. TORRES AT [phone] IF ANY QUESTIONS REGARDING HOSPITAL STAY. PLEASE CALL THE FLOOR AT [phone] IF ANY MEDICATION OR NURSING QUESTIONS. Diet: Regular Activity: Fall precautions Time spent managing pt's care (in minutes): 30
== END 2017-08-15 09:48 | disposition home or self-care (01) ==
LOC: ER 21:26 → INTOOBSV 22:35 → ERHOLD 22:35 → 4TH 23:29
PROVIDERS: ADMIT Hospitalist; ATTEND Hospitalist
DX: J44.1 Chronic obstructive pulmonary disease with (acute) exacerbation (principal); K21.9 Gastro-esophageal reflux disease without esophagitis; G89.4 Chronic pain syndrome; S20.20XA Contusion of thorax, unspecified, initial encounter; F17.210 Nicotine dependence, cigarettes, uncomplicated; Z85.43 Personal history of malignant neoplasm of ovary; Z86.19 Personal history of other infectious and parasitic diseases
CPT/HCPCS: 36415; 71045; 80048; 80076; 81003; 81015; 82550; 82553; 83735; 83880; 84145; 84484; 85025; 85610; 85730; 87040; 87070; 87205; 87804; 93005; 94640; 96365; 96375; 99285; G0378; J0456; J0696; J1100; J1650; J2270; J2405; J2930; J7512

== ENCOUNTER 2017-09-02 18:44 | Emergency (ER) | payer BC, OTHER ==
[2017-09-02] MEDS ORDERED: MORPHINE 4 MG/ML SYR ONE ×2 (20:23→22:21)
[2017-09-02] MEDS ORDERED: NA CHLORIDE 0.9% 1,000 ML ONE (20:23)
[2017-09-02 20:50] LABS: Absolute Lymphocytes (CBC) 2.4 K/uL (0.7-4.9); Absolute Monocytes 0.6 K/uL (0.1-1.3); Absolute Neutrophil 5.7 K/uL (1.8-8.0); Basophils % 1.2 % (0-1.3); Eosinophils % 7.7 % (0-4.4); Hematocrit 38.6 % (36.0-45.0); MCH 28.1 pg (27.0-35.0); MCV 83.8 fL (80-100); MPV 10.2 fL (7.6-11.3); Monocytes % 6.4 % (3.3-12.3); RBC Red Blood Cell Count 4.61 M/uL (3.86-4.86)
[2017-09-02 20:58] LABS: Potassium 3.8 mEq/L (3.6-5.0)
[2017-09-02 21:04] LABS: Albumin 3.8 g/dL (3.2-5.5); Bilirubin Direct 0.1 mg/dL (0-0.2); Bilirubin Total 0.6 mg/dL (0.3-1.2); Protein, Total 6.8 g/dL (6.0-8.3)
--- NOTE | 2017-09-02 21:47 | RAD REPORT ---
EXAM DESCRIPTION: CTAbdomen Pelvis W Contrast - 09/02/2017 9:38 pm CLINICAL HISTORY: Abdominal pain. COMPARISON: 04/13/2016 TECHNIQUE: Biphasic CT imaging of the abdomen and pelvis was performed with 100 ml non-ionic IV cont rast. All CT scans are performed using dose optimization technique as appropriate and may include automated exposure control or mA/KV adjustment according to patient size. FINDINGS: The lung bases are clear.Moderate axial hiatal hernia. The liver, spleen, pancreas, adrenal glands and kidneys are within normal limits. No bowel obstruction, free air, free fluid or abscess. The appendix is not identified as a discrete structure, however, no secondary findings of appendicitis are identified. No evidence of significan t lymphadenopathy. Chronic right sided inferior lateral rib fractures with prominent callus noted. Chronic compression f racture L1 vertebral body noted. No acute fracture suspected. IMPRESSION: No acute intra-abdominal or pelvic finding. Moderate hiatal hernia.
--- NOTE | 2017-09-02 22:02 | EDPHYS ---
Physician Documentation [facility] Name: Shannan Patel Age: 67 yrs Sex: Female : 1950 Arrival Date: 09/02/2017 Time: 18:49 Bed 19 Private MD: Husam Valente E ED Physician Karson Nolan HPI: 09/02 21:51 This 67 yrs old Female presents to ER via Wheelchair with complaints of kb Rectal discharge. 21:51 The patient presents with abdominal pain that is diffuse. Onset: The symptoms/episode kb began/occurred 3 day(s) ago. The symptoms do not radiate. Associated signs and symptoms: Pertinent positives: clear rectal discharge. The symptoms are described as constant. Modifying factors: The symptoms are alleviated by nothing, the symptoms are aggravated by nothing. Severity of pain: At its worst the pain was moderate in the emergency department the pain is unchanged. The patient has not experienced similar symptoms in the past. The patient has not recently seen a physician. Pt reports abd pain for a couple of days. States she was supposed to have a colonoscopy in July, but was admitted for COPD so she had to cancel it and hasn't rescheduled it yet. States she sees Dr Varma for GERD. Today she had some clear, jelly-like discharge from her rectum so she wanted to get it checked out. . Historical: - Allergies: 19:00 Codeine (Hives); ch - Home Meds: 19:31 diclofenac sodium 75 mg Oral TbEC 1 tab 2 times per day [Active]; doxepin 25 mg Oral ao cap 1 cap once daily [Active]; [place] 10-325 mg Oral tab 1 tab every 4-6 hours for Pain [Active]; omeprazole 40 mg Oral cpDR 1 cap once daily [Active]; Vimovo 500-20 mg Oral TbID 1 tab 2 times per day [Active]; - PMHx: 19:00 cervical cancer; COPD; degenerative bone disease; Gastric Reflux; Herniated disc; ch ovarian cancer; Pneumonia; sciatica; bunions; - PSHx: 19:00 foot sx; Tubal ligation; tubal reversal; Hysterectomy; L wrist sx after fall; R foot; L ch ear; - Immunization history:: Adult Immunizations up to date. - Social history:: Smoking status: Patient/guardian denies using tobacco. ROS: 21:50 Constitutional: Negative for fever, chills, and weight loss, Cardiovascular: Negative kb for chest pain, palpitations, and edema, Respiratory: Negative for shortness of breath, cough, wheezing, and pleuritic chest pain, MS/Extremity: Negative for injury and deformity, Skin: Negative for injury, rash, and discoloration, Neuro: Negative for headache, weakness, numbness, tingling, and seizure. 21:50 Abdomen/GI: Positive for abdominal pain, Negative for nausea, vomiting, and diarrhea, constipation, abdominal cramps, abdominal distension, anorexia. Exam: 21:50 Constitutional: This is a well developed, well nourished patient who is awake, alert, kb and in no acute distress. Head/Face: Normocephalic, atraumatic. Chest/axilla: Normal chest wall appearance and motion. Nontender with no deformity. No lesions are appreciated. Cardiovascular: Regular rate and rhythm with a normal S1 and S2. No gallops, murmurs, or rubs. Normal PMI, no JVD. No pulse deficits. Respiratory: Lungs have equal breath sounds bilaterally, clear to auscultation and percussion. No rales, rhonchi or wheezes noted. No increased work of breathing, no retractions or nasal flaring. Abdomen/GI: Soft, non-tender, with normal bowel sounds. No distension or tympany. No guarding or rebound. No evidence of tenderness throughout. Back: No spinal tenderness. No costovertebral tenderness. Full range of motion. Skin: Warm, dry with normal turgor. Normal color with no rashes, no lesions, and no evidence of cellulitis. MS/ Extremity: Pulses equal, no cyanosis. Neurovascular intact. Full, normal range of motion. Neuro: Awake and alert, GCS 15, oriented to person, place, time, and situation. Cranial nerves II-XII grossly intact. Motor strength 5/5 in all extremities. Sensory grossly intact. Cerebellar exam normal. Normal gait. Vital Signs: 19:00 BP 125 / 87; Pulse 75; Resp 22; Temp 98.5; Pulse Ox 96% on R/A; Weight 81.65 kg; Height ch 5 ft. 7 in. (170.18 cm); Pain 10/10; 21:00 BP 138 / 83; Pulse 63; Resp 16; Pulse Ox 100% on R/A; Pain 0/10; ao 22:10 BP 136 / 80; Pulse 76; Resp 18; Pulse Ox 98% on R/A; Pain 0/10; ao 19:00 Body Mass Index 28.19 (81.65 kg, 170.18 cm) ch MDM: 19:22 Patient medically screened. kb 21:50 Data reviewed: vital signs, nurses notes. Data interpreted: Pulse oximetry: on room air kb is 100 %. Interpretation: normal. Counseling: I had a detailed discussion with the patient and/or guardian regarding: the historical points, exam findings, and any diagnostic results supporting the discharge/admit diagnosis, lab results, radiology results, the need for outpatient follow up, a family practitioner, a boatswains mate, to return to the emergency department if symptoms worsen or persist or if there are any questions or concerns that arise at home. 09/02 19:32 Order name: Amylase, Serum; Complete Time: 21:05 kb 09/02 19:32 Order name: Basic Metabolic Panel; Complete Time: 21:05 kb 09/02 19:32 Order name: CBC with Diff; Complete Time: 20:53 kb 09/02 19:32 Order name: Hepatic Function; Complete Time: 21:05 kb 09/02 19:32 Order name: Lipase; Complete Time: 21:05 kb 09/02 19:32 Order name: IV Saline Lock; Complete Time: 20:27 kb 09/02 19:32 Order name: Labs collected and sent; Complete Time: 20:27 kb 09/02 19:32 Order name: CT Abd/Pelvis - W/Contrast; Complete Time: 21:49 kb Administered Medications: 19:44 CANCELLED (Other Intervention Used): fentaNYL (PF) 50 mcg IVP once kb 20:27 Drug: NS 0.9% 1000 ml Route: IV; Rate: 1000 ml; Site: left antecubital; ao 22:47 Follow up: IV Status: Completed infusion; IV Intake: 1000ml ao 20:27 Drug: morphine 4 mg Route: IVP; Site: left antecubital; ao 22:47 Follow up: Response: No adverse reaction ao 22:31 Drug: morphine 4 mg Route: IVP; Site: left antecubital; ao 22:47 Follow up: Response: No adverse reaction ao Disposition: 09/03 06:44 Co-signature as Attending Physician, Karson Nolan MD Available for consultation at ps1 all times. . Disposition: 09/02/17 22:01 Discharged to Home. Impression: Generalized abdominal pain. - Condition is Stable. - Discharge Instructions: Abdominal Pain, Adult, [id number]. - Medication Reconciliation Form, Thank You Letter, Antibiotic Education, Prescription Opioid Use form. - Follow up: Emergency Department; When: As needed; Reason: Worsening of condition. Follow up: Nilay Varma MD; When: 2 - 3 days; Reason: Recheck today's complaints, Continuance of care, Re-evaluation by your physician. Signatures: Dispatcher [employer] EDOH Margarita Ceron, YEE-C WALL MIRROR DEPARTMENT SUPERVISOR-Christi Westfall, RN RN Michael Aranda RN RN Karson Nolen MD MD ps1 Corrections: (The following items were deleted from the chart) 09/02 19:45 19:44 fentaNYL (PF) 50 mcg IVP once ordered. kb kb 20:57 19:32 Creatinine for Radiology+C.LAB.BRZ ordered. EDOH EDOH 22:31 19:32 Urine Dipstick-Ancillary ordered. kb ao
--- NOTE | 2017-09-02 22:02 | ER ---
Nurse's Notes [facility] Name: Shannan Patel Age: 67 yrs Sex: Female : 1950 Arrival Date: 09/02/2017 Time: 18:49 Bed 19 Private MD: Husam Valente E Diagnosis: Generalized abdominal pain Presentation: 09/02 18:55 Presenting complaint: Patient states: I rolled out of bed last night and hit my head, ch and my neck and back hurt. at 1800 I had a poop and had about a cup of clear mucous come out. no poop at all. My stomach has been hurting me for the past 2-3 days. I have acid reflux. also I had a colonoscopy a couple years back and sometimes I go to the restroom when I dont mean too. they found some polysp and my sister has colon cancer. Transition of care: patient was not received from another setting of care. Onset of symptoms was August 31, 2017. Initial Sepsis Screen: Does the patient meet any 2 criteria? No. Patient's initial sepsis screen is negative. Does the patient have a suspected source of infection? No. Patient's initial sepsis screen is negative. Care prior to arrival: None. 18:55 Method Of Arrival: Wheelchair ch 18:55 Acuity: DEVANTE 3 ch Triage Assessment: 19:00 General: Appears in no apparent distress. uncomfortable, Behavior is calm, cooperative, ch appropriate for age. Historical: - Allergies: 19:00 Codeine (Hives); ch - Home Meds: 19:31 diclofenac sodium 75 mg Oral TbEC 1 tab 2 times per day [Active]; doxepin 25 mg Oral ao cap 1 cap once daily [Active]; [place] 10-325 mg Oral tab 1 tab every 4-6 hours for Pain [Active]; omeprazole 40 mg Oral cpDR 1 cap once daily [Active]; [place] 500-20 mg Oral TbID 1 tab 2 times per day [Active]; - PMHx: 19:00 cervical cancer; COPD; degenerative bone disease; Gastric Reflux; Herniated disc; ch ovarian cancer; Pneumonia; sciatica; bunions; - PSHx: 19:00 foot sx; Tubal ligation; tubal reversal; Hysterectomy; L wrist sx after fall; R foot; L ch ear; - Immunization history:: Adult Immunizations up to date. - Social history:: Smoking status: Patient/guardian denies using tobacco. Screenin:30 Abuse screen: Denies threats or abuse. Denies injuries from another. Nutritional ao screening: No deficits noted. Tuberculosis screening: No symptoms or risk factors identified. Fall Risk None identified. Assessment: 19:29 General: Appears in no apparent distress. comfortable, Behavior is calm, cooperative, ao appropriate for age. Pain: Complains of pain in abdomen. Neuro: Level of Consciousness is awake, alert, obeys commands, Oriented to person, place, time, situation, Appropriate for age Moves all extremities. Speech is normal. Cardiovascular: Capillary refill < 3 seconds Patient's skin is warm and dry. Respiratory: Airway is patent Respiratory effort is even, unlabored, Respiratory pattern is regular, symmetrical. GI: Abdomen is non-distended. : No signs and/or symptoms were reported regarding the genitourinary system. EENT: No signs and/or symptoms were reported regarding the EENT system. Derm: No signs and/or symptoms reported regarding the dermatologic system. Musculoskeletal: Range of motion: limited in all extremities. 21:00 Reassessment: Patient appears in no apparent distress at this time. Patient and/or ao family updated on plan of care and expected duration. Pain level reassessed. Patient is alert, oriented x 3, equal unlabored respirations, skin warm/dry/pink. 22:10 Reassessment: Patient appears in no apparent distress at this time. Patient and/or ao family updated on plan of care and expected duration. Pain level reassessed. Patient is alert, oriented x 3, equal unlabored respirations, skin warm/dry/pink. 22:49 Reassessment: Patient is been discharge and waiting on ride to take her home. ao Vital Signs: 19:00 BP 125 / 87; Pulse 75; Resp 22; Temp 98.5; Pulse Ox 96% on R/A; Weight 81.65 kg; Height ch 5 ft. 7 in. (170.18 cm); Pain 10/10; 21:00 BP 138 / 83; Pulse 63; Resp 16; Pulse Ox 100% on R/A; Pain 0/10; ao 22:10 BP 136 / 80; Pulse 76; Resp 18; Pulse Ox 98% on R/A; Pain 0/10; ao 19:00 Body Mass Index 28.19 (81.65 kg, 170.18 cm) ED Course: 18:49 Patient arrived in ED. mr 18:49 Husam Valente MD is Private Physician. mr 18:58 Triage completed. ch 19:00 Arm band placed on left wrist. Patient placed in waiting room. ch 19:20 Margarita Ceron FNP-C is [facility]. kb 19:20 Karson Nolan MD is Attending Physician. kb 19:23 Michael Aranda RN is Primary Nurse. ao 19:30 Patient has correct armband on for positive identification. Pulse ox on. NIBP on. ao 19:35 Radiology exam delayed due to lab results not completed at this time. (BUN/Creatinine). jg1 19:51 Radiology exam delayed due to lab results not completed at this time. (BUN/Creatinine). jg1 20:20 Radiology exam delayed due to lab results not completed at this time. (BUN/Creatinine). nj 20:36 Radiology exam delayed due to lab results not completed at this time. (BUN/Creatinine). vm2 21:[address] via wheelchair. vm2 21:38 CT Abd/Pelvis - W/Contrast In Process Unspecified. EDMS 22:01 Nilay Varma MD is Referral Physician. kb 22:46 No provider procedures requiring assistance completed. IV discontinued, intact, ao bleeding controlled, No redness/swelling at site. Pressure dressing applied. Administered Medications: 19:44 CANCELLED (Other Intervention Used): fentaNYL (PF) 50 mcg IVP once kb 20:27 Drug: NS 0.9% 1000 ml Route: IV; Rate: 1000 ml; Site: left antecubital; ao 22:47 Follow up: IV Status: Completed infusion; IV Intake: 1000ml ao 20:27 Drug: morphine 4 mg Route: IVP; Site: left antecubital; ao 22:47 Follow up: Response: No adverse reaction ao 22:31 Drug: morphine 4 mg Route: IVP; Site: left antecubital; ao 22:47 Follow up: Response: No adverse reaction ao Intake: 22:47 IV: 1000ml; Total: 1000ml. ao Outcome: 22:01 Discharge ordered by . kb 22:46 Discharged to home via wheelchair. ao 22:46 Condition: stable 22:46 Discharge instructions given to patient, Instructed on discharge instructions, follow up and referral plans. the need for admit, Demonstrated understanding of instructions, follow-up care, medications. 23:25 Patient left the ED. ao Signatures: Dispatcher [employer] EDMS Margarita Ceron, METAL DRILLING MACHINE OPERATOR-C METAL DRILLING MACHINE OPERATOR-Christi Westfall, RN Yeni Gonzalez ch mr Patel, Michael Lange RN RN ao Jordan, Nathan nj McGuire, [facility]
[2017-09-02 23:29] VITALS: TEMP 98.5
[2017-09-02 23:32] VITALS: BP 136/80; O2SAT 98
== END 2017-09-02 23:25 | disposition home or self-care (01) ==
LOC: ER 18:44
DX: R10.84 Generalized abdominal pain (principal); K21.9 Gastro-esophageal reflux disease without esophagitis; J44.9 Chronic obstructive pulmonary disease, unspecified; Z88.5 Allergy status to narcotic agent; Z85.41 Personal history of malignant neoplasm of cervix uteri; Z85.43 Personal history of malignant neoplasm of ovary
CPT/HCPCS: 36415; 74177; 80048; 80076; 82150; 83690; 85025; 96361; 96374; 99284; J7030; Q9967

== ENCOUNTER 2018-07-19 10:38 | Emergency (ER) | payer BC, OTHER ==
--- OUTSIDE RECORDS SUMMARY | 2018-07-19 10:41 | XMS REPORT | Clinical Summary ---
:1950 Author Organization [facility] Address [address] [place] [address] Care Team Providers Name Role Phone Husam Valente MD Primary Care Provider Allergies Active Allergy Reactions Severity Noted Date Comments Codeine Rash Low 06/23/2018 Medications Medication Sig Dispensed Refills Start Date End Date Status omeprazole (PriLOSEC) 40 0 06/20/2018 Active MG capsule meloxicam (MOBIC) 7.5 mg TK 1 T PO QD UTD 0 06/10/2018 Active tablet doxepin (SINEquan) 25 MG 0 06/16/2018 Active capsule cyclobenzaprine TK 1 T PO TID 0 06/10/2018 Active (FLEXERIL) 10 mg tablet UTD ipratropium-albuterol Inhale 1 puff. 0 11/03/2016 Active (COMBIVENT RESPIMAT) 20-100 mcg/actuation mist inhaler traMADol (ULTRAM) 50 mg TK 1 T PO TID 0 05/22/2018 Active tablet HYDROcodone-acetaminophe Take 1 tablet by 0 Active n (NORCO) 10-325 mg per mouth every 6 tablet (six) hours as needed for moderate pain. Active Problems Problem Noted Date Zenker's diverticulum 07/06/2018 Encounters Date Type Specialty Care Team Description 07/13/2018 Patient Outreach Bernard Bledsoe, UlicesD 07/13/2018 Telephone Cardiothoracic Rosalba Funez MA 07/06/2018 Anesthesia Event Cardiothoracic Adiel Marroquin Surgery MD Luke 07/06/2018 Surgery Cardiothoracic Hamzah Bertrand LEFT NECK OPEN Surgery MD Huseyin DIVERTICULECTOMY, CROCYPHARENGEL MYOTOMY 07/06/2018 - Hospital General Internal Hamzah Bertrand Zenker's diverticulum 07/08/2018 Encounter Medicine MD Huseyin 07/03/2018 Telephone Cardiothoracic Mara, Surgery Xena Solomon NP 06/24/2018 Orders Only Cardiothoracic Provider, Rosalba Dennis MD 06/23/2018 Lab Lab Hamzah Bertrand Dysphagia, unspecified type; MD Dotty Fontanez's diverticulum; Pre-op testing 06/23/2018 Lab Lab Hamzah Bertrand Dysphagia, unspecified type; MD Dotty Fontanez's diverticulum; Pre-op testing 06/23/2018 Hospital Radiology Hamzah Bertrand Encounter MD Huseyin 06/23/2018 Office Visit Cardiothoracic Hamzah Bertrand Dysphagia, unspecified type (Primary Dx); Surgery MD Dotty Fontanez's diverticulum; Pre-op testing 06/23/2018 Orders Only Cardiothoracic Hamzah Bertrand Surgery MD Huseyin 06/22/2018 Orders Only Cardiothoracic Provider, Rosalba Dennis MD after 07/18/2017 Family History Medical History Relation Name Comments Lung cancer Brother Lung cancer Father Lung cancer Mother Lung cancer Sister Relation Name Status Comments Brother Father Mother Sister Social History Tobacco Use Types Packs/Day Years Used Date Former Smoker Cigarettes 1 40 Quit: 06/23/2011 Smokeless Tobacco: Never Used Alcohol Use Drinks/Week oz/Week Comments No Alcohol Habits Answer Date Recorded How often do you have a drink containing alcohol? Never 06/23/2018 How many drinks containing alcohol do you have on a typical Not asked day when you are drinking? How often do you have six or more drinks on one occasion? Not asked Financial Resource Strain Answer Date Recorded How hard is it for you to pay for the very basics like Not hard at all 2018 food, housing, medical care, and heating? Food Insecurity Answer Date Recorded Within the past 12 months, you worried that your food would Never true 2018 run out before you got money to buy more. Within the past 12 months, the food you bought just didn't Never true 2018 last and you didn't have money to get more. Transportation Needs Answer Date Recorded In the past 12 months, has lack of transportation kept you from No 06/23/2018 medical appointments or from getting medications? In the past 12 months, has lack of transportation kept you from No 06/23/2018 meetings, work, or getting things needed for daily living? Sex Assigned at Date Recorded Not on file Job Start Date Occupation Industry Not on file Not on file Not on file Travel History Travel Start Travel End No recent travel history available. Last Filed Vital Signs Vital Sign Reading Time Taken Blood Pressure 112/58 07/08/2018 7:29 AM NUTRITIONAL HEALTH COACH Pulse 76 07/08/2018 8:19 AM NUTRITIONAL HEALTH COACH Temperature 36.6 C (97.8 F) 07/08/2018 7:29 AM NUTRITIONAL HEALTH COACH Respiratory Rate 17 07/08/2018 8:19 AM NUTRITIONAL HEALTH COACH Oxygen Saturation 97% 07/08/2018 8:11 AM NUTRITIONAL HEALTH COACH Inhaled Oxygen Concentration - - Weight 82.5 kg (181 lb 12.8 oz) 07/08/2018 4:01 AM NUTRITIONAL HEALTH COACH Height 170.2 cm (5' 7") 07/06/2018 11:15 PM NUTRITIONAL HEALTH COACH Body Mass Index 28.47 07/08/2018 4:01 AM NUTRITIONAL HEALTH COACH Plan of Treatment Date Type Specialty Care Team Description 08/10/2018 Office Visit Cardiothoracic Surgery Hamzah Bertrand MD [address] [address] Health Maintenance Due Date Last Done Comments CERVICAL CANCER SCREENING 1973 BREAST CANCER SCREENING 2002 COLON CANCER SCREENING 2002 SHINGLES VACCINES (#1) 2002 65+ PNEUMOCOCCAL VACCINE (2 of 2 - PPSV23) 2017 04/28/2013 INFLUENZA VACCINE 12/03/2017 PNEUMOCOCCAL POLYSACCHARIDE VACCINE AGE 65 AND OVER Completed 04/28/2013 Procedures Procedure Name Priority Date/Time Associated Comments Diagnosis ESTIMATED GFR Routine 07/08/2018 5:21 Results for this AM [facility] HEALTH COACH procedure are in the results section. BASIC METABOLIC PANEL Routine 07/08/2018 5:21 Results for this AM [facility] HEALTH COACH procedure are in the results section. HC COMPLETE BLD COUNT Routine 07/08/2018 4:32 Results for this W/AUTO DIFF AM [facility] HEALTH COACH procedure are in the results section. FL ESOPHAGRAM COMPLETE Routine 07/07/2018 10:09 Results for this AM [facility] HEALTH COACH procedure are in the results section. ESTIMATED GFR Routine 07/07/2018 4:00 Results for this AM [facility] HEALTH COACH procedure are in the results section. HC COMPLETE BLD COUNT Routine 07/07/2018 4:00 Results for this W/AUTO DIFF AM [facility] COACH procedure are in the results section. BASIC METABOLIC PANEL Routine 07/07/2018 4:00 Results for this AM [facility] COACH procedure are in the results section. WY AN ELECTIVE Routine 07/06/2018 2:33 Results for this ENDOTRACHEAL AIRWAY PM [facility]ITIONAL HEALTH COACH procedure are in the results section. SURGICAL PATHOLOGY Routine 07/06/2018 7:57 Results for this REQUEST AM [facility] HEALTH COACH procedure are in the results section. ECG 12-LEAD Routine 06/23/2018 10:47 Dysphagia, Results for this AM [facility] HEALTH COACH unspecified type procedure are in [facility] the results diverticulum section. Pre-op testing PREPARE RBC Routine 06/23/2018 10:38 Results for this AM [facility] CO[facility] procedure are in the results section. TYPE AND SCREEN Routine 06/23/2018 10:38 Dysphagia, Results for this AM [facility] HEALTH COACH unspecified type procedure are in [facility]'s the results diverticulum section. Pre-op testing [id number] Routine 06/23/2018 PARTIAL THROMBOPLASTIN Routine 06/23/2018 12:00 Results for this TIME (PTT) AM [facility]ALTH COACH procedure are in the results section. PROTHROMBIN TIME WITH Routine 06/23/2018 12:00 Results for this INR AM [facility] HEALTH COACH procedure are in the results section. COMPREHENSIVE METABOLIC Routine 06/23/2018 12:00 Results for this PANEL AM [facility] procedure are in the results section. CBC WITH PLATELET AND Routine 06/23/2018 12:00 Results for this DIFFERENTIAL AM [facility] HE[facility] COACH procedure are in the results section. FL EXTERNAL STUDY EXAM Routine 06/17/2018 12:14 Results for this PM [facility] procedure are in the results section. FL ESOPHAGRAM COMPLETE Routine 06/17/2018 ABDOMINAL ULTRASOUND Routine 02/12/2018 after 07/18/2017 Results Estimated GFR (07/08/2018 5:21 AM NUTRITIONAL HEALTH COACH)Only the most recent of2 resultswithin the time period is included. Estimated GFR >=90 mL/min/1.73 m2 [facility] GNOSTICIST Comment: HOSPITAL CatergoryUnitsInterpretation G1 >=90 Normal or high G2 60-89Mildly decreased [id number] to moderately decreased [id number] to severely decreased G4 15-29Severely decreased G5 <15Kidney failure The eGFR was calculated using the Chronic Kidney Disease Epidemiology Collaboration (CKD-EPI) equation. Interpretation is based on recommendations of the National Kidney Foundation-Kidney Disease Outcomes Quality Initiative (NKF-KDOQI) published in 2014. Specimen Plasma specimen Performing Organization Address City/State/Zipcode Phone Number [facility] DEPARTMENT OF PATHOLOGY AND [address] [place] [id number] [place] [phone] Basic metabolic panel (07/08/2018 5:21 AM NUTRITIONAL HEALTH COACH)Only the most recent of2 resultswithin the time period is included. Sodium 137 135 - 148 mEq/L [facility] Potassium 3.9 3.5 - 5.0 mEq/L [facility] Chloride 101 98 - 112 mEq/L [facility] CO2 24 24 - 31 mEq/L [facility] Anion gap 12@ANIO 7 - 15 mEq/L [facility] BUN 6 (L) 8 - 23 mg/dL [facility] Creatinine 0.67 0.50 - 0.90 mg/dL [facility] Glucose 97 65 - 99 mg/dL [facility] Calcium 8.4 (L) 8.8 - 10.2 mg/dL [facility] Specimen Plasma specimen Performing Organization Address City/State/Zipcode Phone Number [facility] DEPARTMENT OF PATHOLOGY AND [address] [place] [phone] CBC with platelet and differential (07/08/2018 4:32 AM NUTRITIONAL HEALTH COACH)Only the most recent of3 resultswithin the time period is included. WBC 8.18 4.50 - 11.00 k/uL [facility] RBC 4.18 (L) 4.20 - 5.50 m/uL [facility] HGB 11.6 (L) 12.0 - 16.0 g/dL [facility] HCT 37.8 37.0 - 47.0 % [facility] MCV 90.4 82.0 - 100.0 fL [facility] MCH 27.8 27.0 - 34.0 pg [facility] MCHC 30.7 (L) 31.0 - 37.0 g/dL [facility] RDW - SD 53.9 37.0 - 55.0 fL [facility] MPV 11.8 8.8 - 13.2 fL [facility] Platelet count 197 150 - 400 k/uL [facility] Nucleated RBC 0.00 /100 WBC [facility] Neutrophils 67.4 39.0 - 69.0 % [facility] Lymphocytes 19.4 (L) 25.0 - 45.0 % [facility] Monocytes 10.0 0.0 - 10.0 % [facility] Eosinophils 2.3 0.0 - 5.0 % [facility] Basophils 0.7 0.0 - 1.0 % [facility] Immature granulocytes 0.2Comment: "Immature 0.0 - 1.0 % [facility] granulocytes" HOSPITAL (promyelocytes, myelocytes, metamyelocytes) Specimen Blood Performing Organization Address City/State/Zipcode Phone Number [facility] DEPARTMENT OF PATHOLOGY AND [address] [place] [address] GENOMIC MEDICINE [facility] [address] [place] [address] [place] Esophagram Complete (07/07/2018 10:09 AM NUTRITIONAL HEALTH COACH)Only the most recent of2 resultswithin the time period is included. Narrative Performed At EXAMINATION:FL ESOPHAGRAM COMPLETE [facility] CLINICAL HISTORY:s p zenkers diverticulectomy COMPARISON:None. Fluoroscopy time: 1.4 minutes .25images obtained. TECHNIQUE:Water-soluble contrast administered by mouth. Patient imaged in the semisupine position only due to patient condition. FINDINGS: [employer] Supervisor image demonstrates surgical clips in the left side of the neck and adjacent [place] drain related to the Zenker diverticulectomy. Contrast readily traverses the operative site. No contrast column holdup or extravasation. A moderate to large sized hiatal hernia is present, and there is tortuosity of the distal esophagus. Mild impairment of the primary wave with intermittent tertiary contractions, likely combination of postop edema and presbyesophagus. IMPRESSION: Satisfactory postop appearance. Incidental findings see above. [facility]-[id number] Procedure Note Interface, Radiology Results Incoming - 07/07/2018 10:36 AM [facility] HEALTH COACH EXAMINATION: FL ESOPHAGRAM COMPLETE CLINICAL HISTORY: s p zenkers diverticulectomy COMPARISON: None. Fluoroscopy time: 1.4 minutes . 25 images obtained. TECHNIQUE: Water-soluble contrast administered by mouth. Patient imaged in the semisupine position only due to patient condition. FINDINGS: [employer] Supervisor image demonstrates surgical clips in the left side of the neck and adjacent [place] drain related to the Zenker diverticulectomy. Contrast readily traverses the operative site. No contrast column holdup or extravasation. A moderate to large sized hiatal hernia is present, and there is tortuosity of the distal esophagus. Mild impairment of the primary wave with intermittent tertiary contractions, likely combination of postop edema and presbyesophagus. IMPRESSION: Satisfactory postop appearance. Incidental findings see above. [facility]-[id number] Performing Organization Address City/State/Zipcode Phone Number [facility] [address] [place] [address] Airway (07/06/2018 2:33 PM N[facility]ITIONAL HEALTH COACH) Narrative Performed At Adiel Marroquin MD 07/06/20185:24 PM Airway Performed by: Suzan Venegas MD Authorized by: Adiel Marroquin MD Location:OR Urgency:Elective Difficult Airway: No Preoxygenated with 100% O2: Yes C-spine Precautions Maintained Throughout: Yes Mask Ventilation:Easy mask Final Airway Type:Endotracheal airway Final Endotracheal Airway:ETT Cuffed: Yes Technique Used:Direct laryngoscopy Blade Type:Baldo Laryngoscope Blade/Videolaryngoscope Blade Size:3 ETT Size (mm):7.0 Cuff at minimum occlusion pressure: Yes Measured from:Lips ETT to Lips (cm):21 Placement Verified by: CO2 detection and direct visualization Laryngoscopic view:Grade I - full view of glottis Rapid Sequence Induction (RSI): No Modified RSI: No Number of Attempts at Approach:1 Procedure Note Adiel Marroquin MD - 07/06/2018 2:33 PM N[facility] HEALTH COACH Airway Performed by: Suzan Venegas MD Authorized by: Adiel Marroquin MD Location: OR Urgency: Elective Difficult Airway: No Preoxygenated with 100% O2: Yes C-spine Precautions Maintained Throughout: Yes Mask Ventilation: Easy mask Final Airway Type: Endotracheal airway Final Endotracheal Airway: ETT Cuffed: Yes Technique Used: Direct laryngoscopy Blade Type: Baldo Laryngoscope Blade/Videolaryngoscope Blade Size: 3 ETT Size (mm): 7.0 Cuff at minimum occlusion pressure: Yes Measured from: Lips ETT to Lips (cm): 21 Placement Verified by: CO2 detection and direct visualization Laryngoscopic view: Grade I - full view of glottis Rapid Sequence Induction (RSI): No Modified RSI: No Number of Attempts at Approach: 1 Surgical pathology request (07/06/2018 7:57 AM NUTRITIONAL HEALTH COACH) [facility] DEPARTMENT OF PATHOLOGY AND GENOMIC MEDICINE Surgical pathology report See link below for PDF [facility] DEPARTMENT OF Lab Report PATHOLOGY AND GENOMIC MEDICINE Result status This is Final Report [facility] DEPARTMENT OF for [id number] PATHOLOGY AND GENOMIC MEDICINE Performing Organization Address City/State/Zipcode Phone Number [facility] DEPARTMENT OF PATHOLOGY AND [address] [place] [phone] GENOMIC MEDICINE ECG 12 lead (06/23/2018 10:47 AM NUTRITIONAL HEALTH COACH) Ventricular rate 68 [facility] Atrial rate 68 [facility] WY interval 130 [facility] QRSD interval 90 [facility] QT interval 406 [facility] QTC interval 431 [facility] P axis 1 12 [facility] QRS axis 1 28 [facility] T wave axis 42 [facility] EKG impression Normal sinus rhythm-Normal ECG-No previous [facility] ECGs available- Narrative Performed At Performing Organization Address City/[facility]/Zipcode Phone Number [facility] MUSE [address] [place] [address] Prepare RBC (06/23/2018 10:38 AM NUTRITIONAL HEALTH COACH) Product name Red Blood Cells -1, [facility] Unit number [id number] [facility] Product code [id number] [facility] Dispense status Returned to not [facility] Blood expiration date [facility] Blood type code 7300 [facility] Blood type B POSITIVE [facility] Product name Red Blood Cells 1, [facility] Unit number [id number] [facility] Product code [id number] [facility] Dispense status Returned to not [facility] transfused [facility] Blood expiration date [facility] Blood type code 7300 [facility] Blood type B POSITIVE [facility] Performing Organization Address City/State/Zipcode Phone Number [facility] DEPARTMENT OF PATHOLOGY AND [address] [place] [address] [address] [address] Type and screen (06/23/2018 10:38 AM N[facility]ITIONAL HEALTH COACH) ABO grouping B [facility] Rh type POS [facility] Antibody screen (gel) NEG [facility] Specimen Blood Performing Organization Address City/[facility] Phone Number [facility] DEPARTMENT OF PATHOLOGY AND [address] [place] [address] GENOMIC MEDICINE [facility] [address] [place] [address] Miscellaneous Lab Result (06/23/2018) Specimen Blood Narrative Performed At Partial thromboplastin time, activated (06/23/2018 12:00 AM NUTR[facility]AL HEALTH COACH) aPTT 25 24 - 33 sec [facility] Comment: This test has not been validated for monitoring unfractionated heparin therapy. aPTT-based therapeutic ranges for unfractionated heparin therapy have not been established. For general guidelines on Heparin monitoring, refer to the [facility] Directory of Services. Narrative Performed At Performed at: [id number] Wrapper Hand: Jose Angel Moyer MD, Phone:[phone] Performing Organization Address City/[facility] Phone Number [facility] Prothrombin time with INR (06/23/2018 12:00 AM NUTRITIONAL HEALTH COACH) INR 1.0 0.8 - 1.2 [facility] Comment: Reference interval is for non-anticoagulated patients. Suggested INR therapeutic range for Vitamin K antagonist therapy: Standard Dose (moderate intensity therapeutic range): 2.0 - 3.0 Higher intensity therapeutic range 2.5 - 3.5 Prothrombin time 10.0 9.1 - 12.0 sec [facility] Narrative Performed At Performed at: [facility] LAB[id number] Wrapper Hand: Jose Angel Moyer MD, Phone:[phone] Performing Organization Address City/[facility] Phone Number [facility] Comprehensive metabolic panel (06/23/2018 12:00 AM NUTRITIONAL HEALTH COACH) Glucose 96 65 - 99 mg/dL [facility] BUN, whole blood 7 (L) 8 - 27 mg/dL [facility] Creatinine 0.71 0.57 - 1.00 mg/dL [facility] EGFR Non-Afr. Spanish 90 >59 mL/min/1.73 [facility] EGFR 103 >59 mL/min/1.73 [facility] BUN/creatinine ratio 10 (L) 12 - 28 [facility] Sodium 141 134 - 144 mmol/L [facility] Potassium 4.9 3.5 - 5.2 mmol/L [facility] Chloride 104 96 - 106 mmol/L [facility] CO2 26 20 - 29 mmol/L [facility] Calcium 9.2 8.7 - 10.3 mg/dL [facility] Protein 6.8 6.0 - 8.5 g/dL [facility] Albumin, S 4.3 3.6 - 4.8 g/dL [facility] Globulin, total 2.5 1.5 - 4.5 g/dL [facility] Albumin/globulin ratio 1.7 1.2 - 2.2 [facility] Total bilirubin 0.3 0.0 - 1.2 mg/dL [facility] Alkaline phosphatase 99 39 - 117 IU/L [facility] AST 13 0 - 40 IU/L [facility] ALT 9 0 - 32 IU/L [facility] Narrative Performed At [facility]formed at:[facility] [address] [place], [id number] Wrapper Hand: Jose Angel Moyer MD, Phone:[phone] Performing Organization Address City/State/[facility] Cent[facility]ode Phone Number [facility] FL External Study Exam (06/17/2018 12:14 PM NUTRITIONAL HEALTH COACH) Narrative Performed At This exam was not acquired at a [facility] facility and has not been [facility] interpreted by a [facility] Provider.The exam was imported into our imaging system for comparisons purposes. Performing Organization Address City/[facility] Cent[facility]ode Phone Number [facility] [address] [place] [address] Abdominal Ultrasound (02/12/2018) Narrative Performed At after 07/18/2017 Insurance Payer Benefit Plan / Group Subscriber ID Type Phone Address BCBS BCBS CHOICE PPO/[employer]ER[employer]PL PPO xxxxxxxxxxxx PPO [facility] MEDICARE [facility] DUAL COMPLETE MCR xxxxxxxxx O Advance Directives Patient has advance care planning documents on file. For more information, please contact:Warren [id number] [facility] [place] [address]
[2018-07-19] MEDS ORDERED: MORPHINE 4 MG/ML SYR ONE (11:46)
[2018-07-19] MEDS ORDERED: ONDANSETRON 4 MG/2 ML VIAL ONE (11:46)
[2018-07-19] MEDS ORDERED: NA CHLORIDE 0.9% 1,000 ML ONE (11:50)
[2018-07-19 12:28] LABS: Absolute Lymphocytes (CBC) 1.9 K/uL (0.7-4.9); Absolute Monocytes 0.6 K/uL (0.1-1.3); Absolute Neutrophil 3.1 K/uL (1.8-8.0); Basophils % 2.3 % (0-1.3); Eosinophils % 15.3 % (0-4.4); Hematocrit 37.2 % (36.0-45.0); Lymphocytes % 27.4 % (15.3-44.8); MPV 9.5 fL (7.6-11.3); Monocytes % 8.8 % (3.3-12.3); RBC Red Blood Cell Count 4.38 M/uL (3.86-4.86)
[2018-07-19] MEDS ORDERED: ONDANSETRON 4 MG (ODT) TAB ONE (12:42)
[2018-07-19 12:59] LABS: ALT/SGPT 14 U/L (12-78); AST/SGOT 18 U/L (15-37); Albumin 3.3 g/dL (3.4-5.0); Alkaline Phosphatase 79 U/L (45-117); BUN Blood Urea Nitrogen 9 mg/dL (7-18); Bicarbonate 30 mmol/L (21-32); Bilirubin Direct < 0.1 mg/dL (0-0.2); Bilirubin Total 0.2 mg/dL (0.2-1.0); Glucose Level 92 mg/dL (74-106); Lipase 86 U/L (73-393); Potassium 4.1 mmol/L (3.5-5.1); Protein, Total 6.6 g/dL (6.4-8.2); Sodium Level 143 mmol/L (136-145)
[2018-07-19 13:44] LABS: Anisocytosis 1+; Blood Morphology Comment NOTED (NOT SEEN); Platelet Estimate ADEQ
[2018-07-19 14:07] LABS: Urine Bacteria 20-50 /HPF (<20); Urine Culture Reflex Order REFLEXED; Urine Mucus 2+ /HPF (NONE SEEN); Urine RBC <5 /HPF (NONE SEEN)
--- NOTE | 2018-07-19 15:03 | EDPHYS ---
Physician Documentation [facility] Name: Shannan Patel Age: 68 yrs Sex: Female : 1950 Arrival Date: 07/19/2018 Time: 10:40 Bed 6 Private MD: ED Physician Avelino Valero HPI: 07/19 12:00 This 68 yrs old Female presents to ER via Ambulatory with complaints of pm1 Vomiting. 12:00 The patient presents to the emergency department with nausea, vomiting. Onset: The pm1 symptoms/episode began/occurred 2 day(s) ago. Possible causes: unknown. The symptoms are aggravated by nothing. The symptoms are alleviated by nothing. 12:00 Associated signs and symptoms: Pertinent positives: nausea, vomiting, Pertinent pm1 negatives: abdominal pain, diarrhea, dysuria, fever. 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 Patient instructed to be on clear liquid diet for a few weeks. For [birth year] on [birth year] she decided to eat a burrito. Patient returned to clear liquid diet without difficulty. Patient presenting to the ER with complaints of nausea and vomiting. No hematemesis. Patient with history of hiatal hernia. Historical: - Allergies: 11:30 Codeine (Hives); hj - PMHx: 11:30 bunions; cervical cancer; COPD; degenerative bone disease; Gastric Reflux; Herniated hj disc; ovarian cancer; Pneumonia; sciatica; - PSHx: 11:30 foot sx; Tubal ligation; tubal reversal; Hysterectomy; L wrist sx after fall; R foot; L hj ear; - Immunization history:: Adult Immunizations up to date. - Social history:: Smoking status: Patient/guardian denies using tobacco, Patient/guardian denies using alcohol. - Ebola Screening: : Patient negative for fever greater than or equal to 101.5 degrees Fahrenheit, and additional compatible Ebola Virus Disease symptoms Patient denies exposure to infectious person Patient denies travel to an Ebola-affected area in the 21 days before illness onset. ROS: 12:00 Constitutional: Negative for fever, chills, and weight loss, Eyes: Negative for injury, pm1 pain, redness, and discharge, ENT: Negative for injury, pain, and discharge, Neck: Negative for injury, pain, and swelling, Cardiovascular: Negative for chest pain, palpitations, and edema, Respiratory: Negative for shortness of breath, cough, wheezing, and pleuritic chest pain. 12:00 Back: Negative for injury and pain, : Negative for injury, bleeding, discharge, and swelling, MS/Extremity: Negative for injury and deformity, Skin: Negative for injury, rash, and discoloration, Neuro: Negative for headache, weakness, numbness, tingling, and seizure. 12:00 Abdomen/GI: Positive for nausea and vomiting, Negative for abdominal pain, diarrhea, constipation, hematemesis, black/tarry stool, rectal pain, rectal bleeding. Exam: 12:00 Constitutional: This is a well developed, well nourished patient who is awake, alert, pm1 and in no acute distress. Head/Face: Normocephalic, atraumatic. Eyes: Pupils equal round and reactive to light, extra-ocular motions intact. Lids and lashes normal. Conjunctiva and sclera are non-icteric and not injected. Cornea within normal limits. Periorbital areas with no swelling, redness, or edema. ENT: Nares patent. No nasal discharge, no septal abnormalities noted. Tympanic membranes are normal and external auditory canals are clear. Oropharynx with no redness, swelling, or masses, exudates, or evidence of obstruction, uvula midline. Mucous membranes moist. Neck: Trachea midline, no thyromegaly or masses palpated, and no cervical lymphadenopathy. Supple, full range of motion without nuchal rigidity, or vertebral point tenderness. No Meningismus. Chest/axilla: Normal chest wall appearance and motion. Nontender with no deformity. No lesions are appreciated. Cardiovascular: Regular rate and rhythm with a normal S1 and S2. No gallops, murmurs, or rubs. Normal PMI, no JVD. No pulse deficits. Respiratory: Lungs have equal breath sounds bilaterally, clear to auscultation and percussion. No rales, rhonchi or wheezes noted. No increased work of breathing, no retractions or nasal flaring. Abdomen/GI: Soft, non-tender, with normal bowel sounds. No distension or tympany. No guarding or rebound. No evidence of tenderness throughout. Back: No spinal tenderness. No costovertebral tenderness. Full range of motion. 12:00 MS/ Extremity: Pulses equal, no cyanosis. Neurovascular intact. Full, normal range of motion. 12:00 Skin: Appearance: Color: normal in color, Temperature: normal temperature, Moisture: normal moisture, abscess, not appreciated, cellulitis, is not appreciated, Wound recheck: Surgical incision to left anterior aspect of neck without any signs of dehiscence, cellulitis, discharge, redness, warmth, or crepitus. 12:00 Neuro: Orientation: is normal, Motor: is normal, Sensation: is normal, no obvious gross deficits. Vital Signs: 10:51 BP 128 / 71; Pulse 87; Resp 16; Temp 97.6; Pulse Ox 100% on R/A; Weight 83.01 kg; pc1 Height 5 ft. 7 in. (170.18 cm); Pain 8/10; 12:18 BP 120 / 69; Pulse 64; Resp 20; Pulse Ox 100% on R/A; Pain 9/10; pc1 13:30 BP 126 / 72; Pulse 68; Resp 15; Pulse Ox 100% on R/A; hb 14:30 BP 117 / 69; Pulse 87; Resp 16; Pulse Ox 98% on R/A; hb 10:51 Body Mass Index 28.66 (83.01 kg, 170.18 cm) pc1 MDM: 11:29 Patient medically screened. pm1 12:00 Data reviewed: vital signs. Data interpreted: Pulse oximetry: on room air is 100 %. pm1 Interpretation: normal. 14:47 Counseling: I had a detailed discussion with the patient and/or guardian regarding: the pm1 historical points, exam findings, and any diagnostic results supporting the discharge/admit diagnosis, lab results, radiology results, the need for outpatient follow up, to return to the emergency department if symptoms worsen or persist or if there are any questions or concerns that arise at home. 07/19 11:30 Order name: Basic Metabolic Panel; Complete Time: 13:01 pm1 07/19 11:30 Order name: CBC with Diff; Complete Time: 13:49 pm1 07/19 11:30 Order name: Creatinine for Radiology; Complete Time: 13:38 pm1 07/19 11:30 Order name: Hepatic Function; Complete Time: 13:01 pm1 07/19 11:30 Order name: Lipase; Complete Time: 13:01 pm1 07/19 11:39 Order name: Urine Microscopic Only; Complete Time: 14:47 pm1 07/19 11:51 Order name: Urine Dipstick--Ancillary (enter results) eb 07/19 12:32 Order name: Manual Differential; Complete Time: 13:49 [facility] 07/19 14:09 Order name: Urine Culture [facility] 07/19 11:39 Order name: Urine Dipstick-Ancillary (obtain specimen); Complete Time: 11:50 pm1 07/19 12:01 Order name: PO challenge; Complete Time: 12:34 pm1 Administered Medications: 12:34 Drug: Zofran 4 mg Route: PO; hj 12:43 Follow up: Response: No adverse reaction hj 12:35 Not Given (no IV line, waiting for labs): Zofran 4 mg IVP once; over 2 minutes hj 13:16 Not Given (provider changed order, no IV line;): NS 0.9% 1000 ml IV at 1000 ml once hj Disposition: 18:12 Co-signature as Attending Physician, Avelino Valero MD. rn Disposition: 07/19/18 15:02 Discharged to Home. Impression: Vomiting. - Condition is Stable. - Discharge Instructions: Nausea and Vomiting, Adult. - Prescriptions for Zofran 4 mg Oral Tablet - take 1 tablet by ORAL route every 12 hours As needed; 20 tablet. - Medication Reconciliation Form, Thank You Letter form. - Follow up: Emergency Department; When: As needed; Reason: Worsening of condition. Follow up: Private Physician; When: 2 - 3 days; Reason: Recheck today's complaints, Continuance of care, Re-evaluation by your physician. - Problem is new. - Symptoms have improved. Signatures: Dispatcher [employer] [facility] Avelino Valero MD MD rn Joaquin, Henry, RN RN hj Marinas, Patrick, JOSE R [employer] pm1 Corrections: (The following items were deleted from the chart) 14:12 11:30 IV Saline Lock ordered. pm1 hj 14:12 11:30 Labs collected and sent ordered. pm1 hj 15:21 15:02 07/19/2018 15:02 Discharged to Home. Impression: Vomiting. Condition is Stable. hj Forms are Medication Reconciliation Form, Thank You Letter, Antibiotic Education, Prescription Opioid Use. Follow up: Emergency Department; When: As needed; Reason: Worsening of condition. Follow up: Private Physician; When: 2 - 3 days; Reason: Recheck today's complaints, Continuance of care, Re-evaluation by your physician. Problem is new. Symptoms have improved. pm1
--- NOTE | 2018-07-19 15:03 | ER ---
Nurse's Notes [facility] Name: Shannan Patel Age: 68 yrs Sex: Female : 1950 Arrival Date: 07/19/2018 Time: 10:40 Bed 6 Private MD: Diagnosis: Vomiting Presentation: 07/19 10:50 Presenting complaint: Patient states: Had surgery on neck L side, a few weeks ago, sg reports having nausea and vomiting over the last couple of days, reports is on clear liquid diet but has messed up the last couple of days, reports eating solids, pt denies fever/diarrhea at this time, reports having a follow up appointment in 5 weeks. Transition of care: patient was not received from another setting of care. Onset of symptoms was July 19, 2018. Risk Assessment: Do you want to hurt yourself or someone else? Patient reports no desire to harm self or others. Initial Sepsis Screen: Does the patient meet any 2 criteria? No. Patient's initial sepsis screen is negative. Does the patient have a suspected source of infection? No. Patient's initial sepsis screen is negative. Care prior to arrival: None. 10:50 Method Of Arrival: Ambulatory sg 10:50 Acuity: DEVANTE 3 sg Triage Assessment: 11:32 General: Appears distressed, uncomfortable, Behavior is calm, cooperative. GI: Reports pc1 upper abdominal pain. Historical: - Allergies: 11:30 Codeine (Hives); hj - PMHx: 11:30 bunions; cervical cancer; COPD; degenerative bone disease; Gastric Reflux; Herniated hj disc; ovarian cancer; Pneumonia; sciatica; - PSHx: 11:30 foot sx; Tubal ligation; tubal reversal; Hysterectomy; L wrist sx after fall; R foot; L hj ear; - Immunization history:: Adult Immunizations up to date. - Social history:: Smoking status: Patient/guardian denies using tobacco, Patient/guardian denies using alcohol. - Ebola Screening: : Patient negative for fever greater than or equal to 101.5 degrees Fahrenheit, and additional compatible Ebola Virus Disease symptoms Patient denies exposure to infectious person Patient denies travel to an Ebola-affected area in the 21 days before illness onset. Screenin:29 Abuse screen: Denies threats or abuse. Denies injuries from another. Nutritional pc1 screening: No deficits noted. Tuberculosis screening: No symptoms or risk factors identified. Fall Risk None identified. Assessment: 11:30 Pain: Complains of pain in epigastric area and abdomen diffusely Pain does not radiate. pc1 Pain currently is 7 out of 10 on a pain scale. Quality of pain is described as aching, dull, sharp. GI: Abdomen is round non-distended, obese, Abd is soft Abdomen is tender to palpation in epigastric area Patient currently denies nausea, vomiting. Vital Signs: 10:51 BP 128 / 71; Pulse 87; Resp 16; Temp 97.6; Pulse Ox 100% on R/A; Weight 83.01 kg; pc1 Height 5 ft. 7 in. (170.18 cm); Pain 8/10; 12:18 BP 120 / 69; Pulse 64; Resp 20; Pulse Ox 100% on R/A; Pain 9/10; pc1 13:30 BP 126 / 72; Pulse 68; Resp 15; Pulse Ox 100% on R/A; hb 14:30 BP 117 / 69; Pulse 87; Resp 16; Pulse Ox 98% on R/A; hb 10:51 Body Mass Index 28.66 (83.01 kg, 170.18 cm) pc1 ED Course: 10:40 Patient arrived in ED. as 10:51 Triage completed. sg 10:51 Arm band placed on. sg 11:19 Edmundo Chand NP is PHCP. pm1 11:19 Avelino Valero MD is Attending Physician. pm1 11:21 Edmundo Poole is Primary Nurse. pc1 11:21 Jose Feliciano RN is Primary Nurse. hj 11:29 Patient has correct armband on for positive identification. Placed in gown. Bed in low pc1 position. Call light in reach. Side rails up X2. 11:50 Urine collected: clean catch specimen, cloudy, karin colored. jb1 15:15 No provider procedures requiring assistance completed. Patient did not have IV access hj during this emergency room visit. Administered Medications: 12:34 Drug: Zofran 4 mg Route: PO; hj 12:43 Follow up: Response: No adverse reaction hj 12:35 Not Given (no IV line, waiting for labs): Zofran 4 mg IVP once; over 2 minutes hj 13:16 Not Given (provider changed order, no IV line;): NS 0.9% 1000 ml IV at 1000 ml once hj Outcome: 15:02 Discharge ordered by . pm1 15:15 Discharged to home ambulatory. hj 15:15 Condition: stable 15:15 Discharge instructions given to patient, Instructed on discharge instructions, follow up and referral plans. medication usage, Demonstrated understanding of instructions, follow-up care, medications, Prescriptions given X 1. 15:21 Patient left the ED. hj Addendum: 07/22/2018 18:22 Addendum: Culture Results: Positive urine culture. Patient was not prescribed i w antibiotics at discharge. Report given to ROSEANN for further evaluation and then to allied health teacher for follow up with patient. Phone call Attempt #1 pt did not answer, left VM. 18:26 Addendum: Culture Results: Phone call Attempt #2 pt has followed up with PCP, no i w urinary complaints. Signatures: Dirk Veloz jb1 Gallo Recio, LUZ ELENA RN Aniyah Guaman Irene, RN RN Jose Feliciano RN RN hj Edmundo Chand, DIRECTOR OF INTEGRATED MARKETING DIRECTOR OF INTEGRATED MARKETING pm1 Makayla Christian RN RN Edmundo Poole pc1 Corrections: (The following items were deleted from the chart) 07/19 11:29 10:51 BP 128 / 71; Pulse 87bpm; Resp 16bpm; Pulse Ox 100% RA; Temp 97.6F; 83.01 kg; pc1 Pain 8/10; sg
[2018-07-19 15:29] VITALS: TEMP 97.6
[2018-07-19 15:33] VITALS: BP 117/69; O2SAT 98
[2018-07-19 16:47] LABS: Urine Blood NEGATIVE (NEG); Urine Glucose NEGATIVE (NEG); Urine Protein 1+ (NEG); Urine pH 5.5 (5.0-7.0)
== END 2018-07-19 15:21 | disposition home or self-care (01) ==
LOC: ER 10:38
DX: R11.10 Vomiting, unspecified (principal); Z88.5 Allergy status to narcotic agent; Z85.41 Personal history of malignant neoplasm of cervix uteri; Z85.43 Personal history of malignant neoplasm of ovary
CPT/HCPCS: 36415; 80048; 80076; 81003; 81015; 83690; 85025; 87077; 87086; 87088; 87186; 99283; J2405; J7030

== ENCOUNTER 2018-08-11 14:25 | Emergency (ER) | payer BC, OTHER ==
--- OUTSIDE RECORDS SUMMARY | 2018-08-11 14:33 | XMS REPORT | Clinical Summary ---
:1950 Author Organization [facility] Address [address] [place] [address] Care Team Providers Name Role Phone Rubina Thornton Primary Care Provider Unavailable Allergies Active Allergy Reactions Severity Noted Date [...] Encounters Date Type Specialty Care Team Description 08/11/2018 Telephone Cardiothoracic Rosalba Funez MA 08/10/2018 Lab Lab Hamzah Bertrand Hernia, hiatal; MD Huseyin Pain of upper abdomen; Pre-op testing 08/10/2018 Office Visit Cardiothoracic Hamzah Bertrand Hernia, hiatal (Primary Dx) ; Surgery MD Huseyin Pain of upper abdomen; Rosalba Terry follow-up examination; Xena Solomon NP Nausea and vomiting, intractability of vomiting not specified, unspecified vomiting type; Zenker's diverticulum; Pre-op testing 08/04/2018 Telephone Cardiothoracic Mara Surgery Xena Solomon NP 07/13/2018 Patient Outreach Bernard Bledsoe, PharmD 07/13/2018 Telephone Cardiothoracic Rosalba Funez MA 07/06/2018 Anesthesia Event Cardiothoracic Adiel Marroquin Surgery MD Luke 07/06/2018 Surgery Cardiothoracic Hamzah Bertrand LEFT NECK OPEN Surgery MD Huseyin DIVERTICULECTOMY, CROCYPHARENGEL MYOTOMY 07/06/2018 - Hospital General Internal Hamzah Bertrand's diverticulum 07/08/2018 Encounter Medicine MD Huseyin 07/03/2018 Telephone Cardiothoracic Mara Surgery Xena Solomon NP 06/24/2018 Orders Only Cardiothoracic Provider, Rosalba Dennis MD 06/23/2018 Lab Lab Hamzah Bertrand Dysphagia, unspecified type; MD Dotty Fontanez's diverticulum; Pre-op testing 06/23/2018 Lab Lab Hamzah Bertrand Dysphagia, unspecified type; MD Dotty Fontanez's diverticulum; Pre-op testing 06/23/2018 Hospital Radiology Hamzah Bertrand Encounter MD Huseyin 06/23/2018 Office Visit Cardiothoracic Hamzah Bertrand Dysphagia, unspecified type (Primary Dx); Surgery MD Jessi Fontanezs diverticulum; Pre-op testing 06/23/2018 Orders Only Cardiothoracic Hamzah Bertrand Surgery MD Huseyin 06/22/2018 Orders Only Cardiothoracic Provider, Rosalba Dennis MD after 08/10/2017 Family History Medical History Relation Name Comments [...] Vital Sign Reading Time Taken Blood Pressure 135/85 08/10/2018 9:00 AM CDT Pulse 73 08/10/2018 9:00 AM CDT Temperature 36.4 C (97.6 F) 08/10/2018 9:00 AM CDT Respiratory Rate 17 08/10/2018 9:00 AM CDT Oxygen Saturation 99% 08/10/2018 9:00 AM CDT Inhaled Oxygen Concentration - - Weight 84.4 kg (186 lb) 08/10/2018 9:00 AM CDT Height 170.2 cm (5' 7") 08/10/2018 9:00 AM CDT Body Mass Index 29.13 08/10/2018 9:00 AM CDT Plan of Treatment Date Type Specialty Care Team Description 08/13/2018 Appointment Radiology Hamzah Bertrand MD [address] [place] [address] [place] [address] [phone] 08/13/2018 Appointment Radiology Hamzah Bertrand MD [address] [place] [address] [place] [address] [phone] 08/20/2018 Hospital Encounter Cardiothoracic Hamzah Bertrand Surgery MD Huseyin [address] [place] [address] [place] [address] [phone] 08/20/2018 Surgery Cardiothoracic Hamzah Bertrand ROBOT-ASSISTED Surgery MD Huseyin LAPAROSCOPIC HIATAL [address] [place] [address] [address] [employer] [address] [place] [address] [phone] Health Maintenance Due Date Last Done Comments BREAST CANCER SCREENING 2002 COLON CANCER SCREENING 2002 SHINGLES VACCINES (#1) 2002 65+ PNEUMOCOCCAL VACCINE (2 of 2 - PPSV23) 2017 04/28/2013 INFLUENZA VACCINE 12/03/2018 PNEUMOCOCCAL POLYSACCHARIDE VACCINE AGE 65 AND OVER Completed 04/28/2013 Procedures Procedure Name Priority Date/Time Associated Comments Diagnosis GRAM STAIN STAT 08/10/2018 12:11 Results for this PM CDT procedure are in the results section. URINE CULTURE STAT 08/10/2018 12:11 PM CDT ESTIMATED GFR STAT 08/10/2018 11:39 Results for this AM CDT procedure are in the results section. URINALYSIS SCREEN AND STAT 08/10/2018 11:39 Hernia, hiatal Results for this MICROSCOPY, WITH REFLEX AM CDT Pain of upper procedure are in TO CULTURE abdomen the results Pre-op testing section. PARTIAL THROMBOPLASTIN STAT 08/10/2018 11:39 Hernia, hiatal Results for this TIME (PTT) AM CDT Pain of upper procedure are in abdomen the results Pre-op testing section. PROTHROMBIN TIME WITH STAT 08/10/2018 11:39 Hernia, hiatal Results for this INR AM CDT Pain of upper procedure are in abdomen the results Pre-op testing section. COMPREHENSIVE METABOLIC STAT 08/10/2018 11:39 Hernia, hiatal Results for this PANEL AM CDT Pain of upper procedure are in abdomen the results Pre-op testing section. TYPE AND SCREEN STAT 08/10/2018 11:39 Hernia, hiatal Results for this AM CDT Pain of upper procedure are in abdomen the results Pre-op testing section. HC COMPLETE BLD COUNT STAT 08/10/2018 11:39 Hernia, hiatal Results for this W/AUTO DIFF AM CDT Pain of upper procedure are in abdomen the results Pre-op testing section. ESTIMATED GFR Routine 07/08/2018 5:21 Results for this AM PRIMER INSPECTOR procedure are in the results section. BASIC METABOLIC PANEL Routine 07/08/2018 5:21 Results for this AM PRIMER INSPECTOR procedure are in the results section. HC COMPLETE BLD COUNT Routine 07/08/2018 4:32 Results for this W/AUTO DIFF AM PRIMER INSPECTOR procedure are in the results section. FL ESOPHAGRAM COMPLETE Routine 07/07/2018 10:09 Results for this AM PRIMER INSPECTOR procedure are in the results section. ESTIMATED GFR Routine 07/07/2018 4:00 Results for this AM PRIMER INSPECTOR procedure are in the results section. HC COMPLETE BLD COUNT Routine 07/07/2018 4:00 Results for this W/AUTO DIFF AM PRIMER INSPECTOR procedure are in the results section. BASIC METABOLIC PANEL Routine 07/07/2018 4:00 Results for this AM PRIMER INSPECTOR procedure are in the results section. ID AN ELECTIVE Routine 07/06/2018 2:33 Results for this ENDOTRACHEAL AIRWAY PM PRIMER INSPECTOR procedure are in the results section. SURGICAL PATHOLOGY Routine 07/06/2018 7:57 Results for this REQUEST AM PRIMER INSPECTOR procedure are in the results section. ECG 12-LEAD Routine 06/23/2018 10:47 Dysphagia, Results for this AM PRIMER INSPECTOR unspecified type procedure are in Zenker's the results diverticulum section. Pre-op testing PREPARE RBC Routine 06/23/2018 10:38 Results for this AM PRIMER INSPECTOR procedure are in the results section. TYPE AND SCREEN Routine 06/23/2018 10:38 Dysphagia, Results for this AM PRIMER INSPECTOR unspecified type procedure are in Zenker's the results diverticulum section. Pre-op testing [id number] Routine 06/23/2018 PARTIAL THROMBOPLASTIN Routine 06/23/2018 12:00 Results for this TIME (PTT) AM PRIMER INSPECTOR procedure are in the results section. PROTHROMBIN TIME WITH Routine 06/23/2018 12:00 Results for this INR AM PRIMER INSPECTOR procedure are in the results section. COMPREHENSIVE METABOLIC Routine 06/23/2018 12:00 Results for this PANEL AM PRIMER INSPECTOR procedure are in the results section. CBC WITH PLATELET AND Routine 06/23/2018 12:00 Results for this DIFFERENTIAL AM PRIMER INSPECTOR procedure are in the results section. FL EXTERNAL STUDY EXAM Routine 06/17/2018 12:14 Results for this PM PRIMER INSPECTOR procedure are in the results section. FL ESOPHAGRAM COMPLETE Routine 06/17/2018 ABDOMINAL ULTRASOUND Routine 02/12/2018 after 08/10/2017 Results Gram stain (08/10/2018 12:11 PM CDT) Gram stain result No WBC's or organisms seen. [facility] Comment: Specimen Information Specimen Source: Urine Specimen Site: Clean catch Specimen Urine Performing Organization Address City/State/Zipcode Phone Number [facility] DEPARTMENT OF PATHOLOGY AND [address] [place] [address] [address] Urinalysis screen and microscopy, with reflex to culture (08/10/2018 11:39 AM CDT) Specimen site Clean catch [facility] Color, UA Straw [facility] Appearance, UA Clear [facility] Specific gravity, UA 1.015 1.001 - 1.035 [facility] pH, UA 6.0 5.0 - 8.5 [facility] Protein, UA Negative Negative [facility] Glucose, UA Negative Negative [facility] Ketones, UA Negative Negative [facility] Bilirubin, UA Negative Negative [facility] Blood, UA Negative Negative [facility] Nitrite, UA Negative Negative [facility] Urobilinogen, UA <2.0 <2.0 [facility] Leukocyte esterase, UA Trace (A) Negative [facility] Epithelial cells, UA 1 /HPF [facility] Round epithelial cells, UA <1 0 - 1 /HPF [facility] WBC, UA 6 (H) 0 - 4 /HPF [facility] RBC, UA <1 0 - 5 /HPF [facility] Bacteria, UA Few None seen [facility] Yeast, UA None seen [facility] Yeast with pseudohyphae, UA None seen [facility] Specimen Urine Performing Organization Address City/[facility] Phone Number [facility] DEPARTMENT OF PATHOLOGY AND [address] [place] [phone] Estimated GFR (08/10/2018 11:39 AM CDT)Only the most recent of3 resultswithin the time period is included. Estimated GFR >=90 mL/min/1.73 m2 [facility] Comment: HOSPITAL CatergoryUnitsInterpretation G1 >=90 Normal or high G2 60-89Mildly decreased T4m78-40Ewcwox to moderately decreased V5o54-66Zufsrztxbk to severely decreased G4 15-29Severely decreased G5 <15Kidney failure The eGFR was calculated using the Chronic Kidney Disease Epidemiology Collaboration (CKD-EPI) equation. Interpretation is based on recommendations of the National Kidney Foundation-Kidney Disease Outcomes Quality Initiative (NKF-KDOQI) published in 2014. Specimen Plasma specimen Performing Organization Address City/State/Zipcode Phone Number [facility] DEPARTMENT OF PATHOLOGY AND [address] [place] [phone] [place] [phone] Partial thromboplastin time, activated (08/10/2018 11:39 AM CDT)Only the most recent of2 resultswithin the time period is included. PTT 26.9 23.0 - 36.0 sec [facility] Comment: PTT therapeutic range for unfractionated heparin is 61.0-112.0 seconds which corresponds to Anti-Xa 0.3-0.7 U/ml. Specimen Blood Performing Organization Address City/[facility]/Zipcode Phone Number [facility] DEPARTMENT OF PATHOLOGY AND [address] [place] [address] Prothrombin time with INR (08/10/2018 11:39 AM CDT)Only the most recent of2 resultswithin the time period is included. Prothrombin time 12.9 11.5 - 14.5 sec [facility] INR 1.0 [facility] Comment: HOSPITAL The International Normalized Ratio (INR) is a therapeutic monitoring tool for patients who are stable on oral anticoagulant therapy. An INR of 2.0-3.0 is suggested for deep vein thrombosis/pulmonary embolism. Specimen Blood Performing Organization Address City/[facility] Phone Number [facility] DEPARTMENT OF PATHOLOGY AND [address] [place] [phone] CBC with platelet and differential (08/10/2018 11:39 AM CDT)Only the most recent of4 resultswithin the time period is included. WBC 8.73 4.50 - 11.00 k/uL [facility] RBC 4.48 4.20 - 5.50 m/uL [facility] HGB 12.4 12.0 - 16.0 g/dL [facility] HCT 39.7 37.0 - 47.0 % [facility] MCV 88.6 82.0 - 100.0 fL [facility] MCH 27.7 27.0 - 34.0 pg [facility] MCHC 31.2 31.0 - 37.0 g/dL [facility] RDW - SD 51.1 37.0 - 55.0 fL [facility] MPV 12.0 8.8 - 13.2 fL [facility] Platelet count 224 150 - 400 k/uL [facility] Nucleated RBC 0.00 /100 WBC [facility] Neutrophils 51.7 39.0 - 69.0 % [facility] Lymphocytes 23.0 (L) 25.0 - 45.0 % [facility] Monocytes 7.8 0.0 - 10.0 % [facility] Eosinophils 15.8 (H) 0.0 - 5.0 % [facility] Basophils 1.4 (H) 0.0 - 1.0 % [facility] Immature granulocytes 0.3Comment: "Immature 0.0 - 1.0 % [facility] granulocytes" [facility] (promyelocytes, myelocytes, metamyelocytes) Specimen Blood Performing Organization Address City/State/Zipcode Phone Number [facility] DEPARTMENT OF PATHOLOGY AND [address] [place] [address] Type and screen (08/10/2018 11:39 AM CDT)Only the most recent of2 resultswithin the time period is included. ABO grouping B [facility] Rh type POS [facility] Antibody screen (gel) NEG [facility] Specimen Blood Narrative Performed At PT VERY HARD STICK.08/10/201811:41 [facility] DEPARTMENT OF PATHOLOGY AND GENOMIC [facility] Performing Organization Address City/[facility] Phone Number [facility] DEPARTMENT OF PATHOLOGY AND [address] [place] [address] Comprehensive metabolic panel (08/10/2018 11:39 AM CDT)Only the most recent of2 resultswithin the time period is included. Sodium 140 135 - 148 mEq/L [facility] Potassium 4.2 3.5 - 5.0 mEq/L [facility] Chloride 104 98 - 112 mEq/L [facility] CO2 24 24 - 31 mEq/L [facility] Anion gap 12@ANIO 7 - 15 mEq/L [facility] BUN 12 8 - 23 mg/dL [facility] Creatinine 0.69 0.50 - 0.90 mg/dL [facility] Glucose 95 65 - 99 mg/dL [facility] Calcium 9.0 8.8 - 10.2 mg/dL [facility] Protein 7.0 6.3 - 8.3 g/dL [facility] Comment: HOSPITAL 4.6-7.0 g/dL 1 week 4.4-7.6 g/dL 7 months-1year5.1-7.3 g/dL 1-2 years5.6-7.5 g/dL >3 years6.0-8.0 g/dL 18-150 6.3-8.3 g/dL Albumin 3.8 3.5 - 5.0 g/dL [facility] A/G ratio 1.2 0.7 - 3.8 [facility] Alkaline phosphatase 73 35 - 104 U/L [facility] AST 19 10 - 35 U/L [facility] ALT 8 5 - 50 U/L [facility] Total bilirubin 0.3 0.0 - 1.2 mg/dL [facility] Specimen Plasma specimen Performing Organization Address City/[facility] Phone Number [facility] DEPARTMENT OF PATHOLOGY AND [address] [place] [phone] Basic metabolic panel (07/08/2018 5:21 AM PRIMER INSPECTOR)Only the most recent of2 resultswithin the time period is included. Sodium 137 135 - 148 mEq/L [facility] Potassium 3.9 3.5 - 5.0 mEq/L [facility] Chloride 101 98 - 112 mEq/L [facility] CO2 24 24 - 31 mEq/L [facility] Anion gap 12@ANIO 7 - 15 mEq/L [facility] BUN 6 (L) 8 - 23 mg/dL [facility] Creatinine 0.67 0.50 - 0.90 mg/dL [facility] Glucose 97 65 - 99 mg/dL [facility] Calcium 8.4 (L) 8.8 - 10.2 mg/dL [facility] Specimen Plasma specimen Performing Organization Address City/[facility] Vegas[facility] Phone Number [facility] DEPARTMENT OF PATHOLOGY AND [address] [place], [place] [phone] [address] [address] [place] Esophagram Complete (07/07/2018 10:09 AM PRIMER INSPECTOR)Only the most recent of2 resultswithin the time period is included. Narrative Performed At EXAMINATION:[place] [facility]:s p zenkers diverticulectomy COMPARISON:None. Fluoroscopy time: 1.4 minutes .25images obtained. TECHNIQUE:Water-soluble contrast administered by mouth. Patient imaged in the semisupine position only due to patient condition. FINDINGS: Gallery Director image demonstrates surgical clips in the left [...] Satisfactory postop appearance. Incidental findings see above. [facility]-[id number] Procedure Note Interface, Radiology Results Incoming - 07/07/2018 10:36 AM PRIMER INSPECTOR EXAMINATION: FL ESOPHAGRAM COMPLETE CLINICAL HISTORY: s p zenkers diverticulectomy COMPARISON: None. Fluoroscopy time: 1.4 minutes . 25 images obtained. TECHNIQUE: Water-soluble contrast administered by mouth. Patient imaged in the semisupine position only due to patient condition. FINDINGS: Gallery Director image demonstrates surgical clips in the left side of the neck and adjacent Winston drain related to the Zenker diverticulectomy. Contrast readily traverses the operative site. No contrast column holdup or extravasation. A moderate to large sized hiatal hernia is present, and there is tortuosity of the distal esophagus. Mild impairment of the primary wave with intermittent tertiary contractions, likely combination of postop edema and presbyesophagus. IMPRESSION: Satisfactory postop appearance. Incidental findings see above. [facility]-[id number] Performing Organization Address City/State/Zipcode Phone Number [facility] [address] [place] [address] Airway (07/06/2018 2:33 PM PRIMER INSPECTOR) Narrative Performed At Adiel Marroquin MD 07/06/20185:24 [...] Adiel Marroquin MD - 07/06/2018 2:33 PM PRIMER INSPECTOR Airway Performed by: Suzan Venegas MD Authorized [...] 1 Surgical pathology request (07/06/2018 7:57 AM PRIMER INSPECTOR) [facility] DEPARTMENT OF PATHOLOGY AND GENOMIC MEDICINE Surgical pathology report See link below for PDF [facility] DEPARTMENT OF Lab Report PATHOLOGY AND GENOMIC MEDICINE Result status This is Final Report [facility] DEPARTMENT OF for [id number] PATHOLOGY AND GENOMIC MEDICINE Performing Organization Address City/State/Zipcode Phone Number [facility] DEPARTMENT OF PATHOLOGY AND [address] [place] [phone] GENOMIC MEDICINE ECG 12 lead (06/23/2018 10:47 AM PRIMER INSPECTOR) Ventricular rate 68 [facility] Atrial rate 68 [facility] ID interval 130 [facility] QRSD interval 90 [facility] QT interval 406 [facility] QTC interval 431 [facility] P axis 1 12 [facility] QRS axis 1 28 [facility] T wave axis 42 [facility] MUSE EKG impression Normal sinus rhythm-Normal ECG-No previous [facility] MUSE ECGs available- Narrative Performed At Performing Organization Address City/State/Zipcode Phone Number [facility] MUSE [address] [place] [address] Prepare RBC (06/23/2018 10:38 AM PRIMER INSPECTOR) Product name Red Blood Cells -1, [facility] Unit number [id number] [facility] Product code [id number] [facility] Dispense status Returned to BB not [facility] Blood expiration date [facility] Blood type code 7300 [facility] Blood type B POSITIVE [facility] Product name Red Blood Cells -1, [facility] Unit number [id number] [facility] Product code [id number] [facility] Dispense status Returned to BB not [facility] Blood expiration date [facility] Blood type code 7300 [facility] Blood type B POSITIVE [facility] Performing Organization Address City/State/Zipcode Phone Number [facility] DEPARTMENT OF PATHOLOGY AND [address] [place] [address] GENOMIC MEDICINE [address] [address] Miscellaneous Lab Result (06/23/2018) Specimen Blood Narrative Performed At [place] External Study Exam (06/17/2018 12:14 PM PRIMER INSPECTOR) Narrative Performed At This exam was not acquired at a [facility] facility and has not been [facility] interpreted by a [facility] Provider.The exam was imported into our imaging system for comparisons purposes. Performing Organization Address City/State/Zipcode Phone Number [facility] [address] [place] [address] Abdominal Ultrasound (02/12/2018) Narrative Performed At after 08/10/2017 Insurance Payer Benefit Plan / Group Subscriber ID Type Phone Address BCBS BCBS CHOICE PPO/FEDERAL EMPL PPO xxxxxxxxxxxx PPO [facility] MEDICARE [facility] DUAL COMPLETE MCR xxxxxxxxx HMO Advance Directives Patient has advance care planning documents on file. For more information, please contact:Warren Weiss[address] [place] [address]
[2018-08-11] MEDS ORDERED: NA CHLORIDE 0.9% 1,000 ML ONE (15:10)
[2018-08-11] MEDS ORDERED: MEPERIDINE HCL 25 MG/0.5 ML ONE ×2 (15:10→17:48)
[2018-08-11 15:21] LABS: Absolute Lymphocytes (CBC) 2.2 K/uL (0.7-4.9); Absolute Monocytes 0.7 K/uL (0.1-1.3); Absolute Neutrophil 4.7 K/uL (1.8-8.0); Basophils % 1.3 % (0-1.3); Eosinophils % 11.9 % (0-4.4); Hematocrit 41.2 % (36.0-45.0); Lymphocytes % 25.2 % (15.3-44.8); Monocytes % 8.2 % (3.3-12.3); RBC Red Blood Cell Count 4.86 M/uL (3.86-4.86)
[2018-08-11 15:41] LABS: ALT/SGPT 14 U/L (12-78); AST/SGOT 16 U/L (15-37); Albumin 3.8 g/dL (3.4-5.0); Alkaline Phosphatase 75 U/L (45-117); BUN Blood Urea Nitrogen 12 mg/dL (7-18); Bicarbonate 26 mmol/L (21-32); Bilirubin Direct 0.1 mg/dL (0-0.2); Bilirubin Total 0.5 mg/dL (0.2-1.0); Glucose Level 90 mg/dL (74-106); Lipase 137 U/L (73-393); Potassium 4.4 mmol/L (3.5-5.1); Protein, Total 7.3 g/dL (6.4-8.2); Sodium Level 142 mmol/L (136-145); Troponin (Emerg Dept Use Only) < 0.02 ng/mL (0.0-0.045)
--- NOTE | 2018-08-11 16:27 | EKG ---
Test Date: 2018-08-11 Test Time: 14:59:28 Combat Systems Operator: WESLEY MEASUREMENT RESULTS: Intervals: Rate: 68 [place]: 134 QRSD: 88 QT: 420 QTc: 446 [place]: P: 31 [place]: 134 QRS: 27 T: 40 INTERPRETIVE STATEMENTS: Sinus rhythm with premature atrial complexes RSR' or QR pattern in V1 suggests right ventricular conduction delay Borderline ECG Compared to ECG 08/13/2017 22:04:12 Atrial premature complex(es) now present RSR' in V1 or V2 now present Electronically Signed On 08-11-18 16:26:18 CDT by Paul Alonzo
--- NOTE | 2018-08-11 17:35 | RAD REPORT ---
EXAM DESCRIPTION: CT - Abdomen Pelvis W Contrast - 08/11/2018 5:21 pm CLINICAL HISTORY: Abdominal pain COMPARISON: September 2017 TECHNIQUE: Biphasic, helical CT imaging of the abdomen and pelvis was performed following 100 ml non -ionic IV contrast. Oral contrast was given. All CT scans are performed using dose optimization technique as appropriate and may include automated exposure control or mA/KV adjustment according to patient size. FINDINGS: No acute lung base findings. Patient has a moderately large hiatal hernia with approximate ly 30% of the stomach intrathoracic. This is stable. No pericardial thickening or effusion. The liver, spleen, and pancreas show no suspicious findings. Gallbladder and biliary tree are also wi thout suspicious finding. Symmetric renal function is seen with no hydronephrosis or suspicious renal mass. No pyelonephritis o r acute parenchymal process. No bladder abnormalities. No adrenal abnormalities. Uterus is absent. Ov arminda are absent or atrophic. Adnexal mass. No dilated bowel loops or bowel wall thickening. No free air, free fluid or inflammatory stranding. No hernia or bulky lymphadenopathy. Lymph node or nodularity in the right side pericardial fat has n ot changed. Patient has periportal lymph nodes. These are relatively prominent over what is typically seen. However, no changes occurred in 11 months. No suspicious bony findings. IMPRESSION: Contrast enhanced CT abdomen and pelvis showing no acute finding. CT findings, as detailed in this report, are similar to September 2017.
--- NOTE | 2018-08-11 18:01 | ER ---
Nurse's Notes [facility] Name: Shannan Patel Age: 68 yrs Sex: Female : 1950 Arrival Date: 08/11/2018 Time: 14:26 Bed 7 Private MD: Diagnosis: Dizziness and giddiness;Lower abdominal pain, unspecified Presentation: 08/11 14:40 Presenting complaint: Patient states: has had increasing lower abd pain, passed out in iw bathroom this morning, hx of fainting, had recent surgery on neck and is due for surgery on hernia on the , was told to be seen in ER if pain is uncontrolled with prescribed pain meds. Transition of care: patient was not received from another setting of care. Onset of symptoms was August 11, 2018. Risk Assessment: Do you want to hurt yourself or someone else? Patient reports no desire to harm self or others. Initial Sepsis Screen: Does the patient meet any 2 criteria? No. Patient's initial sepsis screen is negative. Does the patient have a suspected source of infection? No. Patient's initial sepsis screen is negative. Care prior to arrival: None. 14:40 Method Of Arrival: Ambulatory iw 14:40 Acuity: DEVANTE 3 iw Triage Assessment: 14:45 General: Appears in no apparent distress. uncomfortable, Behavior is calm, cooperative, hj appropriate for age. Pain: Complains of pain in abdomen. EENT: No signs and/or symptoms were reported regarding the EENT system. Neuro: Level of Consciousness is awake, alert, obeys commands, Oriented to person, place, time, situation, Appropriate for age. Cardiovascular: Capillary refill < 3 seconds Patient's skin is warm and dry. Respiratory: Airway is patent Respiratory effort is even, unlabored, Respiratory pattern is regular, symmetrical. GI: No signs and/or symptoms were reported involving the gastrointestinal system. : No signs and/or symptoms were reported regarding the genitourinary system. Derm: No signs and/or symptoms reported regarding the dermatologic system. Musculoskeletal: No signs and/or symptoms reported regarding the musculoskeletal system. Historical: - Allergies: 14:45 Codeine (Hives); iw - Home Meds: 14:45 diclofenac sodium 75 mg Oral TbEC 1 tab 2 times per day [Active]; doxepin 25 mg Oral iw cap 1 cap once daily [Active]; [place] 10-325 mg Oral tab 1 tab every 4-6 hours for Pain [Active]; omeprazole 40 mg Oral cpDR 1 cap once daily [Active]; Vimovo 500-20 mg Oral TbID 1 tab 2 times per day [Active]; - PMHx: 14:45 bunions; cervical cancer; COPD; degenerative bone disease; Gastric Reflux; Herniated iw disc; ovarian cancer; Pneumonia; sciatica; - PSHx: 14:45 foot sx; Tubal ligation; tubal reversal; Hysterectomy; L wrist sx after fall; R foot; L iw ear; - Immunization history:: Adult Immunizations up to date. - Ebola Screening: : Patient negative for fever greater than or equal to 101.5 degrees Fahrenheit, and additional compatible Ebola Virus Disease symptoms Patient denies exposure to infectious person Patient denies travel to an Ebola-affected area in the 21 days before illness onset No symptoms or risks identified at this time. - Family history:: not pertinent. - Social history:: Smoking status: Patient/guardian denies using tobacco, Patient/guardian denies using alcohol. - Hospitalizations: : No recent hospitalization is reported. Screenin:45 Abuse screen: Denies threats or abuse. Denies injuries from another. Nutritional hj screening: No deficits noted. Tuberculosis screening: No symptoms or risk factors identified. Fall Risk None identified. Assessment: 14:45 Reassessment: see triage for assessment;. hj 15:30 Reassessment: pt finished oral contrast;. hj 15:59 Reassessment: Patient and/or family updated on plan of care and expected duration. Pain hj level reassessed. Patient is alert, oriented x 3, equal unlabored respirations, skin warm/dry/pink. awaiting results and POC:. 16:47 Reassessment: Patient and/or family updated on plan of care and expected duration. Pain hj level reassessed. Patient is alert, oriented x 3, equal unlabored respirations, skin warm/dry/pink. waiting for CT;. 17:46 Reassessment: Patient and/or family updated on plan of care and expected duration. Pain hj level reassessed. Patient is alert, oriented x 3, equal unlabored respirations, skin warm/dry/pink. provider in room with POC:. 18:07 Reassessment: pt states: "i will wait for the call back from my surgeon while on my hj room, its going to be within 15 mins;". Vital Signs: 14:43 BP 154 / 92; Pulse 78; Resp 16; Temp 97.7(TE); Pulse Ox 99% on R/A; Pain 10/10; iw 16:00 BP 150 / 90; Pulse 72; Resp 18; Pulse Ox 100% on R/A; hj 16:48 BP 148 / 89; Pulse 74; Resp 18; Pulse Ox 100% on R/A; hj 17:46 BP 142 / 88; Pulse 75; Resp 18; Pulse Ox 100% on R/A; hj ED Course: 14:26 Patient arrived in ED. as 14:28 Avelino Valero MD is Attending Physician. rn 14:43 Triage completed. iw 14:43 Arm band placed on. iw 14:45 Patient has correct armband on for positive identification. Placed in gown. Bed in low hj position. Call light in reach. Side rails up X 1. 14:54 Jose Feliciano, RN is Primary Nurse. hj 15:04 Missed attempt(s): 22 gauge in left antecubital area. jb1 15:04 Missed attempt(s): 22 gauge in right antecubital area. jb1 15:10 Initial lab(s) drawn, by me, sent to lab. Inserted saline lock: 24 gauge in left hand, hj using aseptic technique. Blood collected. 15:11 EKG done, by anesthesia technician. reviewed by Avelino Valero MD. sm3 15:30 Oral contrast reported to be complete. vm2 15:56 Inserted saline lock: 22 gauge in right antecubital area, using aseptic technique. hj 17:[address] vm2 17:21 CT Abd/Pelvis - W/Contrast In Process Unspecified. EDMS 17:58 No provider procedures requiring assistance completed. IV discontinued. hj Administered Medications: 15:18 Drug: NS 0.9% 1000 ml Route: IV; Rate: 1000 ml; Site: left hand; hj 18:06 Follow up: IV Status: Completed infusion; IV Intake: 1000ml hj 15:18 Drug: Demerol 25 mg Route: IVP; Site: left hand; hj 15:44 Follow up: Response: No adverse reaction hj 17:22 Drug: Demerol 25 mg {Note: given IM per MD.} Route: IVP; Site: Other; hj 17:45 Follow up: Response: No adverse reaction hj 17:56 Drug: Cipro 500 mg Route: PO; hj 18:01 Follow up: Response: No adverse reaction hj 17:56 Drug: Flagyl 500 mg Route: PO; hj 18:01 Follow up: Response: No adverse reaction hj Intake: 18:06 IV: 1000ml; Total: 1000ml. Outcome: 18:00 Discharge ordered by MD. rn 18:04 Discharged to home ambulatory. hj 18:04 Condition: stable 18:04 Discharge instructions given to patient, Instructed on discharge instructions, follow up and referral plans. Demonstrated understanding of instructions, follow-up care. 18:32 Patient left the ED. Signatures: Dispatcher [employer] EDMS Dirk Veloz Amelia as Williams, Irene, RN LUZ ELENA Avelino Valero MD MD rn Joaquin, Henry, RN RN hj McGuire, Victoria vm2 Isabela Solano 3
--- NOTE | 2018-08-11 18:01 | EDPHYS ---
Physician Documentation [facility] Name: Shannan Patel Age: 68 yrs Sex: Female : 1950 Arrival Date: 08/11/2018 Time: 14:26 Bed 7 Private MD: ED Physician Avelino Valero HPI: 08/11 15:46 This 68 yrs old Female presents to ER via Ambulatory with complaints of rn Dizziness, abd pain. 15:47 The patient presents with abdominal pain in the lower abdomen. Onset: The rn symptoms/episode began/occurred this morning. The symptoms do not radiate. Associated signs and symptoms: Pertinent positives: nausea, Pertinent negatives: blood in stools, dysuria, fever, palpitations, shortness of breath. The symptoms are described as achy. Modifying factors: The symptoms are alleviated by nothing, the symptoms are aggravated by touching the area. Severity of pain: At its worst the pain was moderate in the emergency department the pain is unchanged. The patient has experienced similar episodes in the past. Reports seen yesterday as f/u for zenker's surgery, did not have abd pain at that time, reports told also has hiatal hernia that needs surgery and scheduled for August 20. Began to have abd pain this AM, nausea, and dizziness. Reports passed out. Reports passes out somewhat frequently and that doesn't really concern her, mainly here for abd pain. . Historical: - Allergies: 14:45 Codeine (Hives); iw - Home Meds: 14:45 diclofenac sodium 75 mg Oral TbEC 1 tab 2 times per day [Active]; doxepin 25 mg Oral iw cap 1 cap once daily [Active]; [place] 10-325 mg Oral tab 1 tab every 4-6 hours for Pain [Active]; omeprazole 40 mg Oral cpDR 1 cap once daily [Active]; Vimovo 500-20 mg Oral TbID 1 tab 2 times per day [Active]; - PMHx: 14:45 bunions; cervical cancer; COPD; degenerative bone disease; Gastric Reflux; Herniated iw disc; ovarian cancer; Pneumonia; sciatica; - PSHx: 14:45 foot sx; Tubal ligation; tubal reversal; Hysterectomy; L wrist sx after fall; R foot; L iw ear; - Immunization history:: Adult Immunizations up to date. - Ebola Screening: : Patient negative for fever greater than or equal to 101.5 degrees Fahrenheit, and additional compatible Ebola Virus Disease symptoms Patient denies exposure to infectious person Patient denies travel to an Ebola-affected area in the 21 days before illness onset No symptoms or risks identified at this time. - Family history:: not pertinent. - Social history:: Smoking status: Patient/guardian denies using tobacco, Patient/guardian denies using alcohol. - Hospitalizations: : No recent hospitalization is reported. ROS: 15:47 Constitutional: Negative for fever, chills, and weight loss, Eyes: Negative for injury, rn pain, redness, and discharge, Neck: Negative for injury, pain, and swelling, Cardiovascular: Negative for chest pain, palpitations, and edema, Respiratory: Negative for shortness of breath, cough, wheezing, and pleuritic chest pain, Abdomen/GI: + abd pain and nausea MS/Extremity: Negative for injury and deformity, Skin: Negative for injury, rash, and discoloration, Neuro: Negative for headache,numbness, tingling, and seizure. Exam: 15:47 Constitutional: This is a well developed, well nourished patient who is awake, alert, rn appears anxious Head/Face: Normocephalic, atraumatic. Eyes: Pupils equal round and reactive to light, extra-ocular motions intact. Lids and lashes normal. Conjunctiva and sclera are non-icteric and not injected. Cornea within normal limits. Periorbital areas with no swelling, redness, or edema. ENT: MMM Cardiovascular: Regular rate and rhythm. No pulse deficits. Respiratory: Lungs have equal breath sounds bilaterally, clear to auscultation. No increased work of breathing, no retractions or nasal flaring. Abdomen/GI: soft, + bilateral lower abd tenderness, no rebound, no masses MS/ Extremity: Pulses equal, no cyanosis. Neurovascular intact. Full, normal range of motion. Equal circumference. Neuro: Awake and alert, GCS 15, oriented to person, place, time, and situation. Cranial nerves II-XII grossly intact. Motor strength 5/5 in all extremities. Sensory grossly intact. Cerebellar exam normal. Vital Signs: 14:43 BP 154 / 92; Pulse 78; Resp 16; Temp 97.7(TE); Pulse Ox 99% on R/A; Pain 10/10; iw 16:00 BP 150 / 90; Pulse 72; Resp 18; Pulse Ox 100% on R/A; hj 16:48 BP 148 / 89; Pulse 74; Resp 18; Pulse Ox 100% on R/A; hj 17:46 BP 142 / 88; Pulse 75; Resp 18; Pulse Ox 100% on R/A; hj MDM: 14:28 Patient medically screened. rn 17:55 Differential diagnosis: appendicitis, bowel obstruction, diverticulitis, gastritis, rn gastroesophageal reflux disease, non-specific abd pain, pancreatitis, Peptic Ulcer Disease, Pyelonephritis, Ureterolithiasis. Data reviewed: vital signs, nurses notes, lab test result(s), EKG, radiologic studies, CT scan, and as a result, I will discharge patient. Counseling: I had a detailed discussion with the patient and/or guardian regarding: the historical points, exam findings, and any diagnostic results supporting the discharge/admit diagnosis, lab results, radiology results, the need for outpatient follow up, to return to the emergency department if symptoms worsen or persist or if there are any questions or concerns that arise at home. Response to treatment: the patient's symptoms have mildly improved after treatment, and as a result, I will discharge patient. Special discussion: Based on the patient's Hx, exam, and Dx evaluation, there is no indication for emergent surgery or inpatient Tx. It is understood by the patient/guardian that if the Sx's persist or worsen they need to return immediately for re-evaluation. I discussed with the patient/guardian in detail that at this point there is no indication for admission to the hospital. It is understood, however, that if the symptoms persist or worsen the patient needs to return immediately for re-evaluation. Based on the history and exam findings, there is no indication for further emergent testing or inpatient evaluation. I discussed with the patient/guardian the need to see the crayon painter for further evaluation of the symptoms. I discussed with the patient/guardian the need to see the general surgeon for further evaluation of the symptoms. ED course: Pt with nor acute findings on CT abdomen/pelvis with oral and IV contrast. Bloodwork looks ok, trop negative. Patient still in pain but has improved. + known hiatal hernia present but patient declines acid/reflux medication. + mucous in stool, possible early colitis/proctitis, will cover for infectious colitis/diverticulitis as symptoms just began today. Return precautions given and understood. Already on pain management and takes 4 10mg hydrocodone daily. Urged to f/u with her GI and general surgeon. . 08/11 14:37 Order name: Basic Metabolic Panel rn 08/11 14:37 Order name: CBC with Diff; Complete Time: 15:46 rn 08/11 14:37 Order name: Hepatic Function; Complete Time: 15:46 rn 08/11 14:37 Order name: Lipase; Complete Time: 15:46 rn 08/11 14:37 Order name: Troponin (emerg Dept Use Only); Complete Time: 15:46 rn 08/11 14:37 Order name: Basic Metabolic Panel; Complete Time: 15:46 EDMS 08/11 14:37 Order name: IV Saline Lock; Complete Time: 15:18 rn 08/11 14:37 Order name: CT Abd/Pelvis - W/Contrast; Complete Time: 17:37 rn 08/11 14:37 Order name: EKG; Complete Time: 14:38 rn 08/11 14:37 Order name: Labs collected and sent; Complete Time: 15:18 rn 08/11 14:37 Order name: EKG - Nurse/Tech; Complete Time: 15:18 rn Administered Medications: 15:18 Drug: NS 0.9% 1000 ml Route: IV; Rate: 1000 ml; Site: left hand; hj 18:06 Follow up: IV Status: Completed infusion; IV Intake: 1000ml hj 15:18 Drug: Demerol 25 mg Route: IVP; Site: left hand; hj 15:44 Follow up: Response: No adverse reaction hj 17:22 Drug: Demerol 25 mg {Note: given IM per MD.} Route: IVP; Site: Other; hj 17:45 Follow up: Response: No adverse reaction hj 17:56 Drug: Cipro 500 mg Route: PO; hj 18:01 Follow up: Response: No adverse reaction hj 17:56 Drug: Flagyl 500 mg Route: PO; hj 18:01 Follow up: Response: No adverse reaction Disposition: 08/11/18 18:00 Discharged to Home. Impression: Dizziness and giddiness, Lower abdominal pain, unspecified. - Condition is Stable. - Discharge Instructions: Abdominal Pain, Adult, Dizziness, Hiatal Hernia, Pain Without a Known Cause. - Medication Reconciliation Form, Thank You Letter, Antibiotic Education, Prescription Opioid Use form. - Follow up: Private Physician; When: As needed; Reason: Recheck today's complaints, Re-evaluation by your physician. - Problem is an acute exacerbation. - Symptoms have improved. Signatures: Dispatcher [employer] Shona Woodson RN RN iw Nieto, Roman, MD MD rn Joaquin, Henry, RN RN Corrections: (The following items were deleted from the chart) 18:32 18:00 08/11/2018 18:00 Discharged to Home. Impression: Dizziness and giddiness; Lower hj abdominal pain, unspecified. Condition is Stable. Forms are Medication Reconciliation Form, Thank You Letter, Antibiotic Education, Prescription Opioid Use. Follow up: Private Physician; When: As needed; Reason: Recheck today's complaints, Re-evaluation by your physician. Problem is an acute exacerbation. Symptoms have improved. rn
[2018-08-11] MEDS ORDERED: metroNIDAZOLE 500 MG TABLET ONE (18:09)
[2018-08-11] MEDS ORDERED: CIPROFLOXACIN HCL 500 MG TAB ONE (18:09)
[2018-08-11 18:36] VITALS: TEMP 97.7
[2018-08-11 18:37] VITALS: O2SAT 100
[2018-08-11 18:40] VITALS: BP 142/88
== END 2018-08-11 18:32 | disposition home or self-care (01) ==
LOC: ER 14:25
DX: R10.30 Lower abdominal pain, unspecified (principal); R42 Dizziness and giddiness; J44.9 Chronic obstructive pulmonary disease, unspecified; K21.9 Gastro-esophageal reflux disease without esophagitis; M54.30 Sciatica, unspecified side; Z79.899 Other long term (current) drug therapy; Z85.41 Personal history of malignant neoplasm of cervix uteri; Z85.43 Personal history of malignant neoplasm of ovary
CPT/HCPCS: 36415; 74177; 80048; 80076; 83690; 84484; 85025; 93005; 96361; 96374; 99284; J2175; J7030; Q9967

== ENCOUNTER 2019-02-11 08:47 | Emergency (ER) | payer BC, OTHER ==
--- NOTE | 2019-02-11 09:53 | RAD REPORT ---
EXAM DESCRIPTION: RAD - Foot Left 3 View - 02/11/2019 9:45 am CLINICAL HISTORY: injury, swelling Fall, pain COMPARISON: No comparisons FINDINGS: Mildly impacted fracture suspected involving the distal third metatarsal neck. Deformity o f the second metatarsal head is likely chronic. Prominent plantar calcaneal spur noted.
--- NOTE | 2019-02-11 09:55 | RAD REPORT ---
EXAM DESCRIPTION: RAD - Elbow Right 3 View - 02/11/2019 9:44 am CLINICAL HISTORY: fall, ecchymosis COMPARISON: No comparisons FINDINGS: No acute fracture or dislocation is seen.
--- NOTE | 2019-02-11 09:56 | RAD REPORT ---
EXAM DESCRIPTION: RAD - Ribs Right - 02/11/2019 9:44 am CLINICAL HISTORY: fall Trauma, fall, pain COMPARISON: Chest Single View dated 08/13/2017 FINDINGS: Multiple mildly angulated right-sided rib fractures are present. This appears to involving right ribs #4, 5, 6, 7 and 8. No measurable pneumothorax seen. The lungs are emphysematous. The hear t is mildly prominent. IMPRESSION: Multiple mildly angulated right lateral rib fractures.
--- NOTE | 2019-02-11 11:20 | ER ---
Nurse's Notes [facility] Name: Shannan Patel Age: 68 yrs Sex: Female : 1950 Arrival Date: 02/11/2019 Time: 08:51 Bed 4 Private MD: Diagnosis: Metatarsal Fracture;Multiple fractures of ribs Presentation: 02/11 09:00 Presenting complaint: Patient states: R lateral chest wall pain, R upper arm bruising, ss and bruising to L foot that occurred after tripping and falling from a standing position 1 week ago. Transition of care: patient was not received from another setting of care. Onset of symptoms was February 04, 2019. Risk Assessment: Do you want to hurt yourself or someone else? Patient reports no desire to harm self or others. Initial Sepsis Screen: Does the patient meet any 2 criteria? No. Patient's initial sepsis screen is negative. Does the patient have a suspected source of infection? No. Patient's initial sepsis screen is negative. Care prior to arrival: None. 09:00 Method Of Arrival: Ambulatory ss 09:00 Acuity: DEVANTE 4 ss Historical: - Allergies: 09:00 Codeine (Hives); ss - Home Meds: 09:00 Vimovo 500-20 mg Oral TbID 1 tab 2 times per day [Active]; omeprazole 40 mg Oral cpDR 1 ss cap once daily [Active]; doxepin 25 mg Oral cap 1 cap once daily [Active]; [place] 10-325 mg Oral tab 1 tab every 4-6 hours for Pain [Active]; diclofenac sodium 75 mg Oral TbEC 1 tab 2 times per day [Active]; - PMHx: 09:00 bunions; cervical cancer; COPD; degenerative bone disease; Gastric Reflux; Herniated ss disc; ovarian cancer; Pneumonia; sciatica; - PSHx: 09:00 Tubal ligation; Hysterectomy; tubal reversal; foot sx; L wrist sx after fall; R foot; L ss ear; - Immunization history:: Adult Immunizations up to date. - Social history:: Smoking status: Patient/guardian denies using tobacco. - Ebola Screening: : Patient denies exposure to infectious person Patient denies travel to an Ebola-affected area in the 21 days before illness onset. Screenin:05 Abuse screen: Denies threats or abuse. Nutritional screening: No deficits noted. aa5 Tuberculosis screening: No symptoms or risk factors identified. Fall Risk None identified. Assessment: 09:05 General: Appears comfortable, Behavior is calm, cooperative. Pain: Complains of pain in aa5 right lateral posterior chest Pain does not radiate. Pain currently is 8 out of 10 on a pain scale. Quality of pain is described as sharp, Pain began 1 week ago post fall Is continuous, Aggravated by increased activity. Neuro: Level of Consciousness is awake, alert, obeys commands, Oriented to person, place, time, situation. Cardiovascular: Patient's skin is warm and dry. Respiratory: Airway is patent Respiratory effort is even, unlabored, Respiratory pattern is regular, symmetrical. GI: No signs and/or symptoms were reported involving the gastrointestinal system. : No signs and/or symptoms were reported regarding the genitourinary system. EENT: No signs and/or symptoms were reported regarding the EENT system. Derm: Skin is pink, warm \T\ dry. Bruising noted to right upper arm and left foot. Musculoskeletal: Range of motion: intact in all extremities. 09:25 Reassessment: Pt taken to radiology via wheelchair . aa5 09:40 Reassessment: Pt sitting up in bed speaking over the phone . aa5 10:15 Reassessment: Patient appears in no apparent distress at this time. Patient and/or hb family updated on plan of care and expected duration. Pain level reassessed. Patient is alert, oriented x 3, equal unlabored respirations, skin warm/dry/pink. 10:30 Reassessment: Pt sitting up in bed speaking over the phone. Awaiting disposition. . aa5 11:33 Reassessment: Patient is alert, oriented x 3, equal unlabored respirations, skin aa5 warm/dry/pink. Vital Signs: 08:58 Pulse 79; Resp 16; Temp 98.2(TE); Pulse Ox 99% on R/A; Weight 77.11 kg; Height 5 ft. 7 ss in. (170.18 cm); Pain 9/10; 08:58 Body Mass Index 26.63 (77.11 kg, 170.18 cm) ED Course: 08:51 Patient arrived in ED. as 08:58 Blair Witt PA is PHCP. [facility] 08:58 Jorge Alberto Aponte MD is Attending Physician. jmm 08:58 Arm band placed on right wrist. ss 09:03 Triage completed. 09:03 Ely Prasad, RN is Primary Nurse. aa5 09:05 Patient has correct armband on for positive identification. Bed in low position. Call aa5 light in reach. Side rails up X 1. 09:38 Ribs Right XRAY In Process Unspecified. EDMS 09:39 Foot Left 3 View XRAY In Process Unspecified. EDMS 09:39 Elbow Right 3 View XRAY In Process Unspecified. EDMS 11:05 INCENTIVE SPIROMETRY Sent. bd 11:19 Gallo Lopez MD is Referral Physician. [facility] 11:33 No provider procedures requiring assistance completed. Patient did not have IV access aa5 during this emergency room visit. Administered Medications: No medications were administered Outcome: 11:19 Discharge ordered by . jm 11:33 Discharged to home via wheelchair. aa5 11:33 Condition: stable 11:33 Discharge instructions given to patient, Instructed on discharge instructions, follow up and referral plans. Need for Incentive spirometer usage. Demonstrated understanding of instructions, follow-up care. 11:35 Patient left the ED. bd Signatures: Dispatcher [employer] EDMS Luz Rasheed Blair Witt PA PA [facility] Aniyah Mitchell as Ely Prasad, RN RN aa5 Dorota Harrington, Makayla Zamarripa RN, LUZ ELENA RN Corrections: (The following items were deleted from the chart) 11:21 09:05 Derm: Skin is pink, warm \T\ dry. aa5 aa5
--- NOTE | 2019-02-11 11:21 | EDPHYS ---
Physician Documentation [facility] Name: Shannan Patel Age: 68 yrs Sex: Female : 1950 Arrival Date: 02/11/2019 Time: 08:51 Bed 4 Private MD: ED Physician Jorge Alberto Aponte HPI: 02/11 09:11 This 68 yrs old Female presents to ER via Ambulatory with complaints of Fall jmm Injury. 09:11 Details of fall: The patient fell from an upright position, while walking. Onset: The jmm symptoms/episode began/occurred acutely, just prior to arrival. Associated injuries: The patient sustained right arm, right chest wall, left foot pain. This is a 68 year old female with a history of chronic pain presents to the ED with complaints of pain to the right side of her ribs and left foot. Patient states tripping and falling on her right side 1 week ago. Complains of ongoing pain to her left foot on weight bearing. Denies pain to her right elbow, ecchymosis is noted. Historical: - Allergies: 09:00 Codeine (Hives); ss - Home Meds: 09:00 Vimovo 500-20 mg Oral TbID 1 tab 2 times per day [Active]; omeprazole 40 mg Oral cpDR 1 ss cap once daily [Active]; doxepin 25 mg Oral cap 1 cap once daily [Active]; Mcgehee 10-325 mg Oral tab 1 tab every 4-6 hours for Pain [Active]; diclofenac sodium 75 mg Oral TbEC 1 tab 2 times per day [Active]; - PMHx: 09:00 bunions; cervical cancer; COPD; degenerative bone disease; Gastric Reflux; Herniated ss disc; ovarian cancer; Pneumonia; sciatica; - PSHx: 09:00 Tubal ligation; Hysterectomy; tubal reversal; foot sx; L wrist sx after fall; R foot; L ss ear; - Immunization history:: Adult Immunizations up to date. - Social history:: Smoking status: Patient/guardian denies using tobacco. - Ebola Screening: : Patient denies exposure to infectious person Patient denies travel to an Ebola-affected area in the 21 days before illness onset. ROS: 09:11 Constitutional: Negative for fever, chills, and weight loss, Respiratory: Negative for jmm shortness of breath, cough, wheezing, and pleuritic chest pain, Abdomen/GI: Negative for abdominal pain, nausea, vomiting, diarrhea, and constipation. 09:11 Cardiovascular: Positive for chest pain, with cough, with movement. 09:11 MS/extremity: Positive for injury or acute deformity. 09:11 All other systems are negative. Exam: 09:11 Constitutional: This is a well developed, well nourished patient who is awake, alert, jmm and in no acute distress. Head/Face: atraumatic. Eyes: EOMI, no conjunctival erythema appreciated ENT: Moist Mucus Membranes Neck: Trachea midline, Supple 09:11 Respiratory: Normal respirations, no respiratory distress appreciated Abdomen/GI: Non distended, soft 09:11 Chest/axilla: Palpation: tenderness, that is moderate, of the right lateral posterior chest. 09:11 Cardiovascular: Rate: normal, Rhythm: regular, Pulses: no pulse deficits are appreciated. 09:11 Musculoskeletal/extremity: ecchymosis noted to the right elbow, non tender to palpation, compartments are soft, full radial pulse, NVI. dorsum of the left foot is TTP, full dorsalis pulse, NVI. 09:11 Skin: Appearance: Color: normal in color. 09:11 Neuro: Orientation: is normal, Mentation: is normal, Memory: is normal. 09:11 Psych: Behavior/mood is pleasant, cooperative. Vital Signs: 08:58 Pulse 79; Resp 16; Temp 98.2(TE); Pulse Ox 99% on R/A; Weight 77.11 kg; Height 5 ft. 7 ss in. (170.18 cm); Pain 9/10; 08:58 Body Mass Index 26.63 (77.11 kg, 170.18 cm) Procedures: 11:11 Splinting: Splint applied to left foot using Ortho 3D boot, applied by tech. Examined jmm by me, post splint application: neurovascular intact, 2+ distal pulses palpable, brisk capillary refill noted, Patient tolerated well. MDM: 09:07 Patient medically screened. jmm 11:11 Data reviewed: vital signs, nurses notes. Counseling: I had a detailed discussion with jmmarysol the patient and/or guardian regarding: the historical points, exam findings, and any diagnostic results supporting the discharge/admit diagnosis, radiology results, the need for outpatient follow up, to return to the emergency department if symptoms worsen or persist or if there are any questions or concerns that arise at home. 11:11 ED course: Patient was given IS in the ED. Patient advised to follow up ith ortho and jmm otherwise given return precautions for fever, shortness of breath, ect. patient understood and agrees with the plan of care. . 02/11 09:08 Order name: Ribs Right XRAY; Complete Time: 10:03 [facility] 02/11 09:08 Order name: Foot Left 3 View XRAY; Complete Time: 10:03 [facility] 02/11 09:16 Order name: Elbow Right 3 View XRAY; Complete Time: 10:03 [facility] 02/11 10:30 Order name: INCENTIVE SPIROMETRY [facility] 02/11 10:30 Order name: Misc. Order: ember tape right 2nd and 3rd toe; Complete Time: 10:58 jm 02/11 10:30 Order name: Misc. Order: ortho boot left; Complete Time: 10:58 jm Administered Medications: No medications were administered Disposition: 17:23 Co-signature as Attending Physician, Jorge Alberto Aponte MD. Disposition: 02/11/19 11:19 Discharged to Home. Impression: Metatarsal Fracture, Multiple fractures of ribs. - Condition is Stable. - Discharge Instructions: Metatarsal Fracture, Rib Fracture, Incentive Spirometer. - Medication Reconciliation Form, Thank You Letter, Antibiotic Education, Prescription Opioid Use form. - Follow up: Gallo Lopez MD; When: 2 - 3 days; Reason: Recheck today's complaints, Continuance of care, Re-evaluation by your physician. Signatures: Dispatcher [employer] EDMS Luz Rasheed Joel, PA PA jmm Smirch, Shelby, Jorge Alberto Krishnan RN, MD MD Corrections: (The following items were deleted from the chart) 11:35 11:19 02/11/2019 11:19 Discharged to Home. Impression: Metatarsal Fracture; Multiple bd fractures of ribs. Condition is Stable. Forms are Medication Reconciliation Form, Thank You Letter, Antibiotic Education, Prescription Opioid Use. Follow up: Gallo Lopez; When: 2 - 3 days; Reason: Recheck today's complaints, Continuance of care, Re-evaluation by your physician. jmm
[2019-02-11 11:41] VITALS: TEMP 98.2; O2SAT 99
== END 2019-02-11 11:35 | disposition home or self-care (01) ==
LOC: ER 08:47
PROC: 2W3RX1Z Immobilization of Left Lower Leg using Splint (ICD-10-PCS; principal; 2019-02-11)
DX: S92.332A Displaced fracture of third metatarsal bone, left foot, initial encounter for closed fracture (principal); S22.41XA Multiple fractures of ribs, right side, initial encounter for closed fracture; W01.0XXA Fall on same level from slipping, tripping and stumbling without subsequent striking against object, initial encounter; Y93.01 Activity, walking, marching and hiking; Y92.9 Unspecified place or not applicable; Z85.41 Personal history of malignant neoplasm of cervix uteri; Z88.5 Allergy status to narcotic agent; J44.9 Chronic obstructive pulmonary disease, unspecified
CPT/HCPCS: 99282

== ENCOUNTER 2019-02-14 15:41 | Emergency (ER) | payer OTHER ==
--- NOTE | 2019-02-14 17:33 | ER ---
Nurse's Notes [facility] Name: Shannan Patel Age: 68 yrs Sex: Female : 1950 Arrival Date: 02/14/2019 Time: 15:44 Bed 6 Private MD: Diagnosis: Left bicep contusion and hematoma Presentation: 02/14 15:48 Presenting complaint: Patient states: I fell on last week and my arm upper arm la1 is getting swollen and painful. Transition of care: patient was not received from another setting of care. Onset of symptoms was February 14, 2019. Risk Assessment: Do you want to hurt yourself or someone else? Patient reports no desire to harm self or others. Initial Sepsis Screen: Does the patient meet any 2 criteria? No. Patient's initial sepsis screen is negative. Does the patient have a suspected source of infection? No. Patient's initial sepsis screen is negative. Care prior to arrival: None. 15:48 Method Of Arrival: Ambulatory la1 15:48 Acuity: DEVANTE 4 la1 Historical: - Allergies: 15:49 Codeine (Hives); la1 - PMHx: 15:49 bunions; cervical cancer; COPD; degenerative bone disease; Gastric Reflux; Herniated la1 disc; ovarian cancer; Pneumonia; sciatica; - Immunization history:: Adult Immunizations up to date. - Social history:: Smoking status: Patient/guardian denies using tobacco. - Ebola Screening: : No symptoms or risks identified at this time. Screenin:43 Abuse screen: Denies threats or abuse. Denies injuries from another. Nutritional aj1 screening: No deficits noted. Tuberculosis screening: No symptoms or risk factors identified. Assessment: 16:18 General: Appears in no apparent distress. comfortable, slender, Behavior is calm, ph cooperative. Pain: Complains of pain in right tricep Pain currently is 9 out of 10 on a pain scale. Quality of pain is described as burning, aching, Pain began 3 am Is continuous. Neuro: Level of Consciousness is awake, alert, obeys commands, Oriented to person, place, time, situation, Reports dizziness. Cardiovascular: Capillary refill < 3 seconds Pulses are 1+ in right radial artery are 2+ in left radial artery. Respiratory: Respiratory effort is even, unlabored, Respiratory pattern is regular, symmetrical. Respiratory: Denies shortness of breath. GI: No signs and/or symptoms were reported involving the gastrointestinal system. Derm: Skin is intact, is healthy with good turgor, Bruising that is dark purple, yellow, Upon palpation, area of swelling on right upper arm noted to be reddened and warm. Reports pain. Musculoskeletal: Circulation, motion, and sensation intact. Range of motion: intact in all extremities, Swelling absent. 16:40 Reassessment: Patient states that she needs pain medication because she usually takes aj1 hydrocodone 4 times a day, reports that the last time that she took the hydrocodone was at 0600 today, she didn't take it after that because she had to drive to the emergency room. States that her is home now and will be able to pick her up. States that she needs to either be given pain medication or discharged. Notified Dr. Maldonado, patient was offered her choice of either tramadol or motrin, patient declined taking either, states that they will not help her pain. Notified Dr. Maldonado of patient refusal. No further orders received. 17:40 Reassessment: Patient appears in no apparent distress at this time. Patient and/or ph family updated on plan of care and expected duration. Pain level reassessed. Patient is alert, oriented x 3, equal unlabored respirations, skin warm/dry/pink. Pt d/c home. Vital Signs: 15:49 BP 130 / 69; Pulse 92; Resp 16; Temp 98.2; Pulse Ox 100% on R/A; la1 17:30 BP 122 / 70; Pulse 87; Resp 18; Temp 97.8; Pulse Ox 100% on R/A; ph ED Course: 15:44 Patient arrived in ED. mr 15:48 Triage completed. la1 15:49 Arm band placed on left wrist. la1 16:00 Frances Garcia, LUZ ELENA is Primary Nurse. ph 16:09 West Maldonado MD is Attending Physician. kdr 17:25 US Extremity Venous Unilateral Ltd In Process Unspecified. EDMS 17:43 Patient has correct armband on for positive identification. aj1 17:43 Dinesh wrap to Right upper arm. aj1 17:43 No provider procedures requiring assistance completed. Patient did not have IV access aj1 during this emergency room visit. Administered Medications: No medications were administered Outcome: 17:33 Discharge ordered by . kdr 17:43 Discharged to home via wheelchair. aj1 17:43 Condition: good 17:43 Discharge instructions given to patient, Instructed on discharge instructions, follow up and referral plans. Demonstrated understanding of instructions, follow-up care. 17:44 Patient left the ED. aj1 Signatures: Dispatcher [employer] EDSuzan Watson RN RN aj1 West Maldonado MD MD kdr Castañeda, Anayeli mr Francisco Gaines RN RN laFrances Carmichael RN RN ph Corrections: (The following items were deleted from the chart) 16:59 16:54 Reassessment: Patient states that she needs pain medication because she usually aj1 takes hydrocodone 4 times a day, reports that the last time that she took the hydrocodone was at 0600 today, she didn't take it after that because she had to drive to the emergency room. States that her is home now and will be able to pick her up. States that she needs to either be given pain medication or discharged. Notified Dr. Maldonado, patient was offered her choice of either tramadol or motrin, patient declined taking either, states that they will not help her pain. Notified Dr. Maldonado of patient refusal. aj1
--- NOTE | 2019-02-14 17:33 | EDPHYS ---
Physician Documentation [facility] Name: Shannan Patel Age: 68 yrs Sex: Female : 1950 Arrival Date: 02/14/2019 Time: 15:44 Bed 6 Private MD: ED Physician West Maldonado HPI: 02/14 18:26 This 68 yrs old Female presents to ER via Ambulatory with complaints of Arm kdr Problem. 18:26 The patient or guardian complains of contusion, deformity, injury, pain, that is acute, kdr swelling, tenderness. The complaints affect the right bicep and right antecubital area. Context: The problem was sustained at home, resulted from a fall. 18:27 Onset: The symptoms/episode began/occurred last week. Treatment prior to kdr arrival includes: no previous treatment. Modifying factors: The symptoms are alleviated by nothing. the symptoms are aggravated by movement. Associated signs and symptoms: The patient has no apparent associated signs or symptoms. Severity of symptoms: At their worst the symptoms were mild, in the emergency department the symptoms are unchanged. The patient has not experienced similar symptoms in the past. The patient has been recently seen by a physician: the patient's primary care provider. The patient is concerned that she has a blood clot. Historical: - Allergies: 15:49 Codeine (Hives); la1 - PMHx: 15:49 bunions; cervical cancer; COPD; degenerative bone disease; Gastric Reflux; Herniated la1 disc; ovarian cancer; Pneumonia; sciatica; - Immunization history:: Adult Immunizations up to date. - Social history:: Smoking status: Patient/guardian denies using tobacco. - Ebola Screening: : No symptoms or risks identified at this time. ROS: 18:27 Constitutional: Negative for fever, chills, and weight loss. kdr 18:27 MS/extremity: Positive for injury or acute deformity, abrasion, contusion, ecchymosis, pain, swelling, tenderness, warmth, of the right bicep and right antecubital area. Exam: 18:27 Constitutional: This is a well developed, well nourished patient who is awake, alert, kdr and in no acute distress. 18:27 Musculoskeletal/extremity: ROM: intact in all extremities, Circulation is intact in all extremities. Sensation intact. Compartment Syndrome exam of affected extremity: is normal. no numbness, no tingling. Vital Signs: 15:49 BP 130 / 69; Pulse 92; Resp 16; Temp 98.2; Pulse Ox 100% on R/A; la1 17:30 BP 122 / 70; Pulse 87; Resp 18; Temp 97.8; Pulse Ox 100% on R/A; ph MDM: 17:33 Patient medically screened. kdr 18:27 Data reviewed: vital signs, nurses notes, radiologic studies. Counseling: I had a kdr detailed discussion with the patient and/or guardian regarding: the historical points, exam findings, and any diagnostic results supporting the discharge/admit diagnosis, radiology results, the need for outpatient follow up. 02/14 16:27 Order name: US Extremity Venous Unilateral Ltd kdr 02/14 17:35 Order name: Dinesh Wrap: Right bicep/elbow; Complete Time: 17:43 kdr Administered Medications: No medications were administered Disposition: 02/14/19 17:33 Discharged to Home. Impression: Left bicep contusion and hematoma. - Condition is Stable. - Discharge Instructions: Hematoma, [id number], Contusion, [id number]. - Medication Reconciliation Form, Thank You Letter form. - Follow up: Private Physician; When: 2 - 3 days; Reason: If symptoms return, Further diagnostic work-up, Recheck today's complaints, Continuance of care, Re-evaluation by your physician. - Problem is an ongoing problem. - Symptoms have improved. Signatures: Dispatcher [employer] EDFL Suzan Germain RN RN aj1 West Maldonado MD MD kdr Francisco Gaines RN RN la1 Corrections: (The following items were deleted from the chart) 17:44 17:33 02/14/2019 17:33 Discharged to Home. Impression: Left bicep contusion and aj1 hematoma. Condition is Stable. Forms are Medication Reconciliation Form, Thank You Letter, Antibiotic Education, Prescription Opioid Use. Follow up: Private Physician; When: 2 - 3 days; Reason: If symptoms return, Further diagnostic work-up, Recheck today's complaints, Continuance of care, Re-evaluation by your physician. Problem is an ongoing problem. Symptoms have improved. kdr
[2019-02-14 17:49] VITALS: BP 130/69; TEMP 98.2; O2SAT 100
--- NOTE | 2019-02-14 18:11 | RAD REPORT ---
EXAM DESCRIPTION: US - Extremity Venous Uni Ltd - 02/14/2019 5:26 pm CLINICAL HISTORY: Right arm pain and swelling COMPARISON: None. TECHNIQUE: Real-time sonographic evaluation of the right upper extremity deep venous systems was per formed. FINDINGS: Normal compressibility, flow augmentation, phasic flow and spontaneous flow are identified in the right upper extremity deep venous system. No intraluminal filling defects seen. Internal jugu lar and subclavian veins are normal as well. In the area of patient pain and swelling a 4 centimeter x 1 centimeter oval nearly anechoic collectio n is a identified. Doppler evaluation shows no blood flow within the substance of this collection. No thickened or irregular rim or rind of this structure which is most likely an old hematoma. Reactive fluid collection is possible. Abscess is not suspected. IMPRESSION: No DVT in the right upper extremity. Approximately 4 x 1 centimeter oval fluid collection at the area of swelling. Abscess is not suspecte d. This may be old hematoma.
== END 2019-02-14 17:44 | disposition home or self-care (01) ==
LOC: ER 15:41
DX: S40.022A Contusion of left upper arm, initial encounter (principal); W18.30XA Fall on same level, unspecified, initial encounter; Y93.9 Activity, unspecified; Y92.9 Unspecified place or not applicable; Z88.6 Allergy status to analgesic agent
CPT/HCPCS: 93971; 99283

== ENCOUNTER 2019-02-17 18:00 | Emergency (ER) | payer OTHER ==
--- NOTE | 2019-02-17 18:43 | RAD REPORT ---
EXAM DESCRIPTION: RAD - Chest Single View - 02/17/2019 6:36 pm CLINICAL HISTORY: COUGH Chest pain. COMPARISON: Chest Single View dated 08/13/2017; Chest Pa And Lat (2 Views) dated 11/06/2016; Chest Sing le View dated 11/01/2016; Chest Single View dated 10/31/2016 FINDINGS: Portable technique limits examination quality. Mild linear opacity is seen in the right lung base, likely representing developing pneumonia. The hea rt is mildly enlarged in size. No displaced fractures. IMPRESSION: Mild right base infiltrate/pneumonia.
[2019-02-17] MEDS ORDERED: IPRATROPIUM BROM 0.5MG/2.5ML ONE (18:47)
[2019-02-17] MEDS ORDERED: ALBUTEROL 2.5 MG/3 ML NEB SOL ONE (18:47)
[2019-02-17] MEDS ORDERED: HYDROCODONE/APAP 10/325 TAB ONE (19:08)
[2019-02-17] MEDS ORDERED: ONDANSETRON 4 MG/2 ML VIAL ONE (19:35)
[2019-02-17] MEDS ORDERED: ACETAMINOPHEN 325 MG TABLET ONE (19:49)
[2019-02-17 19:51] LABS: Absolute Lymphocytes (CBC) 1.3 K/uL (0.7-4.9); Hematocrit 39.2 % (36.0-45.0); Lymphocytes % 20.1 % (15.3-44.8); MPV 9.1 fL (7.6-11.3); RBC Red Blood Cell Count 4.65 M/uL (3.86-4.86)
--- NOTE | 2019-02-17 19:52 | RAD REPORT ---
EXAM DESCRIPTION: RAD - Chest Single View - 02/17/2019 7:36 pm CLINICAL HISTORY: Cough;Fever Chest pain. COMPARISON: Chest Single View dated 02/17/2019; Chest Single View dated 08/13/2017; Chest Pa And Lat (2 Views) dated 11/06/2016; Chest Single View dated 11/01/2016; Ribs Right dated 02/11/2019 FINDINGS: Portable technique limits examination quality. Mild linear opacities are seen in the right lung base which may represent atelectasis or developing p neumonia. The heart is mildly enlarged in size. The patient's known right lateral rib fractures recen tly diagnosed are not well seen by plain radiograph.
[2019-02-17 20:04] LABS: Potassium 3.5 mmol/L (3.5-5.1)
[2019-02-17 20:10] LABS: Blood Morphology Comment NOT SEEN (NOT SEEN); Platelet Estimate ADEQ; Urine White Blood Cell Casts OK
[2019-02-17 20:12] LABS: Urine Blood NEGATIVE (NEG); Urine Glucose NEGATIVE (NEG); Urine Protein NEGATIVE (NEG); Urine Specific Gravity 1.015 (1.005-1.030); Urine pH 6.5 (5.0-7.0)
[2019-02-17] MEDS ORDERED: levoFLOXacin 750 MG TAB ONE (20:23)
--- NOTE | 2019-02-17 20:41 | ER ---
Nurse's Notes [facility] Name: Shannan Patel Age: 68 yrs Sex: Female : 1950 Arrival Date: 02/17/2019 Time: 18:05 Bed 24 Private MD: Diagnosis: Pneumonia due to other specified bacteria-right lung base Presentation: 02/17 18:07 Presenting complaint: Patient states: I had some rib fractures recently and I have a la1 bad productive cough with chills. Transition of care: patient was not received from another setting of care. Onset of symptoms. Risk Assessment: Do you want to hurt yourself or someone else? Patient reports no desire to harm self or others. Initial Sepsis Screen: Does the patient meet any 2 criteria? No. Patient's initial sepsis screen is negative. Does the patient have a suspected source of infection? No. Patient's initial sepsis screen is negative. Care prior to arrival: None. 18:07 Method Of Arrival: Wheelchair la1 18:07 Acuity: DEVANTE 3 la1 Historical: - Allergies: 18:08 Codeine (Hives); la1 - PMHx: 18:08 bunions; cervical cancer; COPD; degenerative bone disease; Gastric Reflux; Herniated la1 disc; ovarian cancer; Pneumonia; sciatica; - Immunization history:: Adult Immunizations up to date. - Social history:: Smoking status: Patient/guardian denies using tobacco. - Ebola Screening: : No symptoms or risks identified at this time. Screenin:17 Abuse screen: Denies threats or abuse. Denies injuries from another. Nutritional ca1 screening: No deficits noted. Tuberculosis screening: No symptoms or risk factors identified. Fall Risk None identified. Assessment: 18:17 General: Appears in no apparent distress. comfortable, Behavior is calm, cooperative, ca1 appropriate for age. Pain: Complains of pain in right lateral posterior chest, right lateral anterior chest and abdomen Pain currently is 9 out of 10 on a pain scale. Pain began 299 today Aggravated by coughing. Neuro: Level of Consciousness is awake, alert, obeys commands, Oriented to person, place, time, situation, Appropriate for age. Cardiovascular: Heart tones S1 S2 present Capillary refill < 3 seconds Patient's skin is warm and dry. Respiratory: Reports cough that is productive, since 0300 today Airway is patent Respiratory effort is even, unlabored, Respiratory pattern is regular, symmetrical, Sputum is thick, yellow Breath sounds are clear bilaterally. GI: Abdomen is round non-distended, Bowel sounds present X 4 quads. Abd is soft and non tender X 4 quads. : No deficits noted. No signs and/or symptoms were reported regarding the genitourinary system. EENT: Reports nasal congestion. Derm: Skin is intact, is healthy with good turgor, Skin is pink, warm \T\ dry. Musculoskeletal: Circulation, motion, and sensation intact. Capillary refill < 3 seconds, Range of motion: intact in all extremities. 19:47 Reassessment: Patient appears in no apparent distress at this time. Patient and/or ca1 family updated on plan of care and expected duration. Pain level reassessed. Patient is alert, oriented x 3, equal unlabored respirations, skin warm/dry/pink. 20:26 Reassessment: Patient appears in no apparent distress at this time. Patient is alert, ca1 oriented x 3, equal unlabored respirations, skin warm/dry/pink. Vital Signs: 18:09 BP 141 / 57; Pulse 70; Resp 22; Temp 100.1; Pulse Ox 99% on R/A; Weight 77.11 kg; la1 Height 5 ft. 7 in. (170.18 cm); 19:47 BP 135 / 62; Pulse 72; Resp 20; Pulse Ox 100% on R/A; ca1 20:26 BP 130 / 57; Pulse 87; Resp 19 S; Pulse Ox 97% on R/A; ca1 18:09 Body Mass Index 26.63 (77.11 kg, 170.18 cm) la1 ED Course: 18:05 Patient arrived in ED. mr 18:08 Triage completed. la1 18:09 Arm band placed on right wrist. la1 18:10 Ofelia Barber, LUZ ELENA is Primary Nurse. ca1 18:10 Ezra Mc PA is PHCP. cp 18:10 West Maldonado MD is Attending Physician. cp 18:17 Patient has correct armband on for positive identification. Placed in gown. Bed in low ca1 position. Call light in reach. Side rails up X 1. Pulse ox on. NIBP on. Warm blanket given. 18:17 No provider procedures requiring assistance completed. ca1 18:36 XRAY Chest (1 view) In Process Unspecified. EDMS 18:58 Influenza Screen (a \T\ B) Sent. ca1 19:37 XRAY Chest (1 view) In Process Unspecified. EDMS 19:45 Accessed peripheral vein via ultrasound, utilizing dynamic ultrasound technique using ca1 18G Sureflo IV catheter ,sterile technique, per hospital protocol. Clean \T\ dry. Dressing intact. Good blood return. Flushes easily. by Francisco De La Garza RN. 20:56 IV discontinued, intact, bleeding controlled, No redness/swelling at site. Pressure ca1 dressing applied. Administered Medications: 18:40 Drug: Albuterol - atroVENT (3:1) (2.5 mg - 0.5 mg) 3 ml Route: Nebulizer; ca1 19:52 Follow up: Response: No adverse reaction ca1 19:20 Drug: [place] 10 mg-325 mg 1 tabs Route: PO; ca1 19:52 Follow up: Response: No adverse reaction; Pain is decreased ca1 19:45 Drug: Zofran 4 mg Route: IVP; Site: right antecubital; ca1 20:06 Follow up: Response: No adverse reaction; Nausea is decreased ca1 19:52 Drug: Tylenol 650 mg Route: PO; ca1 20:07 Follow up: Response: No adverse reaction ca1 20:25 Drug: LevaQUIN 750 mg Route: PO; ca1 20:56 Follow up: Response: No adverse reaction ca1 Outcome: 20:40 Discharge ordered by MD. cp 20:56 Discharged to home via wheelchair, with family. ca1 20:56 Condition: stable 20:56 Discharge instructions given to patient, family, Instructed on discharge instructions, follow up and referral plans. medication usage, Demonstrated understanding of instructions, follow-up care, medications, Prescriptions given X 3. 20:57 Patient left the ED. ca1 Signatures: Dispatcher [employer] ED Anayeli Castañeda mr EasleysarbjitFrancisco, RN RN la1 Ezra Mc PA PA Ofelia Gastelum RN RN ca1
--- NOTE | 2019-02-17 20:41 | EDPHYS ---
Physician Documentation [facility] Name: Shannan Patel Age: 68 yrs Sex: Female : 1950 Arrival Date: 02/17/2019 Time: 18:05 Bed 24 Private MD: ED Physician West Maldonado HPI: 02/17 18:30 This 68 yrs old Female presents to ER via Wheelchair with complaints of cp Congestion, Cough, Nausea. 18:30 The patient or guardian reports cough, that is intermittent, with productive sputum, cp that is purulent. 18:30 Onset: The symptoms/episode began/occurred this morning. Associated signs and symptoms: cp Pertinent positives: chest pain, with cough, with movement, fever, Pertinent negatives: sore throat, vomiting. Severity of symptoms: in the emergency department the symptoms are unchanged despite home interventions. 18:30 Patient with history of multiple rib fractures on right side from fall 2 weeks ago. cp Historical: - Allergies: 18:08 Codeine (Hives); la1 - PMHx: 18:08 bunions; cervical cancer; COPD; degenerative bone disease; Gastric Reflux; Herniated la1 disc; ovarian cancer; Pneumonia; sciatica; - Immunization history:: Adult Immunizations up to date. - Social history:: Smoking status: Patient/guardian denies using tobacco. - Ebola Screening: : No symptoms or risks identified at this time. ROS: 18:45 Constitutional: Positive for fever, Negative for poor PO intake. cp 18:45 Eyes: Negative for injury, pain, redness, and discharge. cp 18:45 ENT: Negative for drainage from ear(s), ear pain, sore throat, difficulty swallowing, difficulty handling secretions. 18:45 Neck: Negative for pain with movement, pain at rest, stiffness. 18:45 Cardiovascular: Negative for chest pain, edema, palpitations. 18:45 Respiratory: Positive for cough, Negative for wheezing. 18:45 Abdomen/GI: Positive for nausea, Negative for abdominal pain, vomiting, diarrhea, constipation. 18:45 : Negative for urinary symptoms. 18:45 Skin: Negative for rash. 18:45 Neuro: Negative for altered mental status, dizziness, headache, weakness. 18:45 All other systems are negative. Exam: 18:50 Constitutional: The patient appears in no acute distress, alert, awake, cp non-diaphoretic, non-toxic, well developed, well nourished, uncomfortable. 18:50 Head/Face: Normocephalic, atraumatic. cp 18:50 Eyes: Periorbital structures: appear normal, Conjunctiva: normal, no exudate, no injection, Sclera: no appreciated abnormality, Lids and lashes: appear normal, bilaterally. 18:50 ENT: External ear(s): are unremarkable, Ear canal(s): are normal, clear, TM's: are normal, no evidence of bulging, no erythema, Nose: is normal, Mouth: is normal, Posterior pharynx: is normal, airway is patent, no erythema, no exudate. 18:50 Neck: ROM/movement: is normal, is supple, without pain, no range of motions limitations, no meningismus, no nuchal rigidity. 18:50 Chest/axilla: Inspection: normal, Palpation: crepitus, is not appreciated, tenderness, that is moderate, of the right lateral posterior chest and right lateral anterior chest. 18:50 Cardiovascular: Rate: normal, Rhythm: regular, Edema: is not appreciated, JVD: is not appreciated. 18:50 Respiratory: the patient does not display signs of respiratory distress, Respirations: labored breathing, is not present, shallow respirations, that is mild, splinting, is not noted, tachypnea, is not appreciated, Breath sounds: rhonchi, that are mild, are heard in the right posterior middle lobe and right posterior lower lobe, stridor, is not appreciated, wheezing: is not appreciated. 18:50 Abdomen/GI: Inspection: abdomen appears normal, Bowel sounds: active, all quadrants, Palpation: abdomen is soft and non-tender, in all quadrants, rebound tenderness, is not appreciated, voluntary guarding, is not appreciated, involuntary guarding, is not appreciated. 18:50 Back: CVA tenderness, is absent. 18:50 Skin: no rash present. 18:50 Neuro: Orientation: to person, place \T\ time. Mentation: is normal, Motor: moves all fours, strength is normal. Vital Signs: 18:09 BP 141 / 57; Pulse 70; Resp 22; Temp 100.1; Pulse Ox 99% on R/A; Weight 77.11 kg; la1 Height 5 ft. 7 in. (170.18 cm); 19:47 BP 135 / 62; Pulse 72; Resp 20; Pulse Ox 100% on R/A; ca1 20:26 BP 130 / 57; Pulse 87; Resp 19 S; Pulse Ox 97% on R/A; ca1 18:09 Body Mass Index 26.63 (77.11 kg, 170.18 cm) la1 MDM: 18:13 Patient medically screened. cp 19:00 Differential diagnosis: bronchitis, flu, pneumonia, respiratory distress, pulmonary cp edema. 20:39 Antibiotic administration: The patient is discharged and will get outpatient cp antibiotics, Levaquin. 20:39 Data reviewed: vital signs, nurses notes, lab test result(s), radiologic studies, plain cp films. Test interpretation: by ED physician or midlevel provider: plain radiologic studies. Counseling: I had a detailed discussion with the patient and/or guardian regarding: the historical points, exam findings, and any diagnostic results supporting the discharge/admit diagnosis, lab results, radiology results, the need for outpatient follow up, a family practitioner, to return to the emergency department if symptoms worsen or persist or if there are any questions or concerns that arise at home. Response to treatment: the patient's symptoms have markedly improved after treatment, and as a result, I will discharge patient. 20:40 ED course: VSS. Labs reviewed and chest xray shows concern for early infiltrate right cp lung base. No signs of respiratory distress noted. Will treat with oral Levaquin and discharge to home for continued monitoring. 02/17 18:34 Order name: Influenza Screen (a \T\ B); Complete Time: 19:36 cp 02/17 18:34 Order name: CBC with Diff; Complete Time: 20:21 cp 02/17 19:56 Interpretation: Normal except: RDW 18.3; EOSINOPHIL % 6.9; BASO% 5.0. cp 02/17 18:34 Order name: BMP; Complete Time: 20:21 cp 02/17 20:21 Interpretation: Normal except: GLUC 125; GFR 64; CA 8.4. cp 02/17 18:34 Order name: Urine Microscopic Only 02/17 20:02 Order name: Urine Dipstick--Ancillary (enter results); Complete Time: 20:21 mw2 02/17 20:10 Order name: CBC Smear Scan; Complete Time: 20:21 EDMS 10/16 18:21 Order name: XRAY Chest (1 view); Complete Time: 19:18 ca1 02/17 19:36 Interpretation: Report review. 02/17 18:34 Order name: Urine Dipstick-Ancillary (obtain specimen); Complete Time: 20:07 cp 02/17 18:34 Order name: XRAY Chest (1 view); Complete Time: 19:56 cp 02/17 19:56 Interpretation: Report review. 02/17 18:34 Order name: IV; Complete Time: 19:48 cp Administered Medications: 18:40 Drug: Albuterol - atroVENT (3:1) (2.5 mg - 0.5 mg) 3 ml Route: Nebulizer; ca1 19:52 Follow up: Response: No adverse reaction ca1 19:20 Drug: [place] 10 mg-325 mg 1 tabs Route: PO; ca1 19:52 Follow up: Response: No adverse reaction; Pain is decreased ca1 19:45 Drug: Zofran 4 mg Route: IVP; Site: right antecubital; ca1 20:06 Follow up: Response: No adverse reaction; Nausea is decreased ca1 19:52 Drug: Tylenol 650 mg Route: PO; ca1 20:07 Follow up: Response: No adverse reaction ca1 20:25 Drug: LevaQUIN 750 mg Route: PO; ca1 20:56 Follow up: Response: No adverse reaction ca1 Disposition: 02/17/19 20:40 Discharged to Home. Impression: Pneumonia due to other specified bacteria - right lung base. - Condition is Stable. - Discharge Instructions: Community-Acquired Pneumonia, Adult, Incentive Spirometer. - Prescriptions for Levaquin 750 mg Oral Tablet - take 1 tablet by ORAL route once daily for 10 days start evening of 02-18-2019; 9 tablet. Albuterol Sulfate 2.5 mg /3 mL (0.083 %) Inhalation Solution for Nebulization - inhale 1 unit by NEBULIZATION route every 8 hours As needed; 1 box. Ibuprofen 800 mg Oral Tablet - take 1 tablet by ORAL route every 8 hours As needed take with food; 30 tablet. - Medication Reconciliation Form, Thank You Letter, Antibiotic Education, Prescription Opioid Use form. - Follow up: Private Physician; When: 2 - 3 days; Reason: Recheck today's complaints. - Problem is new. - Symptoms have improved. Addendum: 02/19/2019 07:42 Co-signature as Attending Physician, West Maldonado MD I agree with the assessment and k dr plan of care. Signatures: Dispatcher [employer] EDND West Maldonado MD MD [facility] Francisco Gaines RN RN la1 Ezra Mc PA PA cp Acob, Ofelia, RN RN ca1 Corrections: (The following items were deleted from the chart) 02/17 20:21 20:21 Normal except: GLUC 125; GFR 64. cp cp 20:42 20:40 02/17/2019 20:40 Discharged to Home. Impression: Pneumonia due to other specified cp bacteria. Condition is Stable. Discharge Instructions: Incentive Spirometer, Community-Acquired Pneumonia, Adult. Prescriptions for Levaquin 750 mg Oral Tablet - take 1 tablet by ORAL route once daily for 10 days start evening of 02-18-2019; 9 tablet, Albuterol Sulfate 2.5 mg /3 mL (0.083 %) Inhalation Solution for Nebulization - inhale 1 unit by NEBULIZATION route every 8 hours As needed; 1 box, Ibuprofen 800 mg Oral Tablet - take 1 tablet by ORAL route every 8 hours As needed take with food; 30 tablet. and Forms are Medication Reconciliation Form, Thank You Letter, Antibiotic Education, Prescription Opioid Use. Follow up: Private Physician; When: 2 - 3 days; Reason: Recheck today's complaints. Problem is new. Symptoms have improved. cp 20:57 20:42 02/17/2019 20:40 Discharged to Home. Impression: Pneumonia due to other specified ca1 bacteria - right lung base. Condition is Stable. Discharge Instructions: Incentive Spirometer, Community-Acquired Pneumonia, Adult. Prescriptions for Levaquin 750 mg Oral Tablet - take 1 tablet by ORAL route once daily for 10 days start evening of 02-18-2019; 9 tablet, Albuterol Sulfate 2.5 mg /3 mL (0.083 %) Inhalation Solution for Nebulization - inhale 1 unit by NEBULIZATION route every 8 hours As needed; 1 box, Ibuprofen 800 mg Oral Tablet - take 1 tablet by ORAL route every 8 hours As needed take with food; 30 tablet. and Forms are Medication Reconciliation Form, Thank You Letter, Antibiotic Education, Prescription Opioid Use. Follow up: Private Physician; When: 2 - 3 days; Reason: Recheck today's complaints. Problem is new. Symptoms have improved. cp
[2019-02-17 20:54] LABS: Urine Bacteria <20 /HPF (<20); Urine Culture Reflex Order NOT NEEDED; Urine RBC <5 /HPF (NONE SEEN)
[2019-02-17 21:22] VITALS: TEMP 100.1
[2019-02-17 21:24] VITALS: BP 130/57; O2SAT 97
== END 2019-02-17 20:57 | disposition home or self-care (01) ==
LOC: ER 18:00
DX: J15.8 Pneumonia due to other specified bacteria (principal); Z88.6 Allergy status to analgesic agent
CPT/HCPCS: 85025; 80048; 36415; 87804 ×2; 71045 ×2; 94640; 96374; 99285; J2405; 81003; 81015

== ENCOUNTER 2020-07-19 12:24 | Emergency (ER) | payer OTHER ==
--- OUTSIDE RECORDS SUMMARY | 2020-07-19 12:27 | XMS REPORT | Continuity of Care Document ---
:1950 [address] [facility] t Address [address] [place] [address] [address] [place] [address] Care Team Providers Name Role Phone CORDELL Attending Clinician Unavailable GIOVANNY Attending Clinician Unavailable Doctor Unassigned, Name Attending Clinician Unavailable Janelle RN Attending Clinician Unavailable Pob1, Care [facility] Attending Clinician Unavailable CORDELL Admitting Clinician Unavailable Problems This patient has no known problems. Allergies, Adverse Reactions, Alerts This patient has no known allergies or adverse reactions. Medications This patient has no known medications. Procedures This patient has no known procedures. Encounters Start End Encounter Admission Attending Care Care Encounter Source Date/Time Date/Time Type Type Clinicians Facility Department ID 2020-07-18 2020-07-18 Outpatient MCKENZIE LANDA [facility] [id number] [address] [place] 00:00:00 00:00:[address] 2020-07-01 2020-07-01 Outpatient GIOVANNY [facility] [id number] [address] [place] 00:00:00 00:00:00 [place] [address] 2020-06-10 2020-06-10 Outpatient [facility] [id number] [address] [place] 00:00:00 00:00:[address] 2020-06-06 2020-06-06 Outpatient MCKENZIE LANDA [facility] [id number] [place] 00:00:00 00:00:[address] 2020-06-06 2020-06-06 Outpatient MCKENZIE LANDA [facility] [id number] [place] 00:00:00 00:00:[address] 2019-10-28 2019-10-28 Orders Doctor ALBERTO [id number] 00:00:00 00:00:00 Only Unassigned, KRISTINA [id number] [facility] [id number] 2019-09-29 2019-09-29 Letter REMY Luis [id number] 00:00:00 00:00:00 (Out) Alexi ACEVEDO [id number] [facility] [id number] 2019-09-29 2019-09-29 Telephone REMY Luis [id number] 00:00:00 00:00:00 Anecarrington ACEVEDO [id number] [facility] [id number] 2019-09-28 2019-09-28 Urgent Pob1, Acute [facility] [id number] 13:32:46 13:52:46 [facility] [id number] [place] [id number] [address] [id number] [address] 2018-08-20 2018-08-23 Inpatient MCKENZIE LANDA [facility] [id number] [place] 00:00:00 00:00:[address] Results This patient has no known results.
--- NOTE | 2020-07-19 15:17 | RAD REPORT ---
EXAM DESCRIPTION: RAD - Chest Single View - 07/19/2020 2:56 pm CLINICAL HISTORY: cough, sob COMPARISON: Two view chest December 2019 TECHNIQUE: AP portable chest image was obtained 07/19/2020 2:56 pm . FINDINGS: No focal lung parenchymal process. Patient has prominent chronic interstitial lung pattern not clearly different from comparison. Heart and vasculature are normal. No measurable pleural effus ion and no pneumothorax. No acute bony abnormality seen. No acute aortic findings suspected. IMPRESSION: No acute cardiopulmonary process. Chronic fibrotic lung pattern matches December 2019 comparison.
[2020-07-19 15:34] LABS: Absolute Lymphocytes (CBC) 1.8 K/uL (0.7-4.9); Basophils % 0.6 % (0-1.3); Hematocrit 41.1 % (36.0-45.0); Lymphocytes % 13.3 % (15.3-44.8); MPV 9.2 fL (7.6-11.3); RBC Red Blood Cell Count 4.79 M/uL (3.86-4.86)
[2020-07-19 15:51] LABS: Protime INR 1.06
[2020-07-19 16:03] LABS: ALT/SGPT 31 U/L (12-78); AST/SGOT 18 U/L (15-37); Albumin 3.3 g/dL (3.4-5.0); Alkaline Phosphatase 138 U/L (45-117); BUN Blood Urea Nitrogen 5 mg/dL (7-18); Bicarbonate 25 mmol/L (21-32); Bilirubin Direct 0.1 mg/dL (0-0.2); Bilirubin Total 0.4 mg/dL (0.2-1.0); Glucose Level 93 mg/dL (74-106); NT PRO-BNP 348 pg/mL (<125); Potassium 3.6 mmol/L (3.5-5.1); Protein, Total 6.9 g/dL (6.4-8.2); Sodium Level 143 mmol/L (136-145); Troponin (Emerg Dept Use Only) < 0.02 ng/mL (0.0-0.045)
[2020-07-19] MEDS ORDERED: NA CHLORIDE 0.9% 500 ML ONE (17:34)
--- NOTE | 2020-07-19 18:21 | EDPHYS ---
Physician Documentation [facility] Name: Shanann Patel Age: 70 yrs Sex: Female : 1950 Arrival Date: 07/19/2020 Time: 12:29 Bed 6 Private MD: ED Physician Karson Nolan HPI: 07/19 14:36 This 70 yrs old Female presents to ER via EMS with complaints of Needs jmm Labwork, Dizziness. 14:36 The patient or guardian reports cough. Onset: The symptoms/episode began/occurred jmm gradually, 1 day(s) ago. Modifying factors: The symptoms are alleviated by nothing, the symptoms are aggravated by nothing. This is a 70 year old female with a history of COPD that presents to the ED with complaints of productive cough, chills. Patient states she was notified her wbc was elevated in outpatient labs drawn yesterday for preop. Patient denies abdominal pain and states she has taken the covid immunization. . Historical: - Allergies: 12:44 Codeine (Hives); ll1 - PMHx: 12:44 bunions; cervical cancer; COPD; degenerative bone disease; Gastric Reflux; Herniated ll1 disc; ovarian cancer; Pneumonia; sciatica; - PSHx: 12:44 Hysterectomy; Tubal ligation; L wrist SX, R foot SX x 2; ll1 - Immunization history:: Adult Immunizations up to date. - Social history:: Smoking status: Patient reports the use of cigarette tobacco products, Smoking status: Patient/guardian denies using tobacco, the patient reports quitting approximately 5 years ago. ROS: 14:36 Constitutional: Positive for body aches, chills. jmm 14:36 Respiratory: Positive for cough, productive. 14:36 All other systems are negative. Exam: 14:36 Constitutional: This is a well developed, well nourished patient who is awake, alert, jmm and in no acute distress. Head/Face: atraumatic. Eyes: EOMI, no conjunctival erythema appreciated ENT: Moist Mucus Membranes Neck: Trachea midline, Supple Chest/axilla: Normal chest wall appearance and motion. Cardiovascular: Regular rate and rhythm. No edema appreciated Respiratory: Normal respirations, no respiratory distress appreciated Abdomen/GI: Non distended, soft Back: Normal ROM Skin: General appearance color normal MS/ Extremity: Moves all extremities, no obvious deformities appreciated, no edema noted to the lower extremities Neuro: Awake and alert, normal gait Psych: Behavior is normal, Mood is normal, Patient is cooperative and pleasant Vital Signs: 12:39 BP 111 / 63; Pulse 68; Resp 18; Temp 97.9; Pulse Ox 95% on R/A; Weight 72.57 kg; Height ll1 5 ft. 4 in. (162.56 cm); Pain 5/10; 15:42 BP 134 / 71; Pulse 66; Resp 18; Pulse Ox 99% on R/A; hb 17:51 BP 135 / 80; Pulse 64; Resp 16; Pulse Ox 99% on R/A; hb 18:19 BP 112 / 71; Pulse 66; Resp 16; Pulse Ox 100% on R/A; Pain 0/10; ss 12:39 Body Mass Index 27.46 (72.57 kg, 162.56 cm) ll1 MDM: 14:26 Patient medically screened. [facility] 18:18 Data reviewed: vital signs, nurses notes. Counseling: I had a detailed discussion with jose juan the patient and/or guardian regarding: the historical points, exam findings, and any diagnostic results supporting the discharge/admit diagnosis, lab results, radiology results, the need for outpatient follow up, to return to the emergency department if symptoms worsen or persist or if there are any questions or concerns that arise at home. ED course: Patient also complains of diarrhea and generalized pruritus, worse on hands. Symptoms may be due to a viral illness. Patient is advised to follow up with a pcp and otherwise given strict return precautions. patient understood and agrees with the plan of care. . 07/19 14:33 Order name: Basic Metabolic Panel [facility] 07/19 14:33 Order name: CBC with Diff [facility] 07/19 14:33 Order name: LFT's [facility] 07/19 14:33 Order name: Magnesium [facility] 07/19 14:33 Order name: NT PRO-BNP [facility] 07/19 14:33 Order name: PT-INR; Complete Time: 16:09 [facility] 07/19 14:33 Order name: Troponin (emerg Dept Use Only); Complete Time: 16:04 [facility] 07/19 14:33 Order name: Procalcitonin; Complete Time: 16:15 [facility] 07/19 14:33 Order name: Lactate; Complete Time: 16:01 [facility] 07/19 14:33 Order name: Blood Culture Adult (2) [facility] 07/19 14:34 Order name: Basic Metabolic Panel; Complete Time: 16:04 [facility] 07/19 14:34 Order name: CBC with Automated Diff; Complete Time: 15:50 [facility] 07/19 14:34 Order name: Magnesium; Complete Time: 16:04 [facility] 07/19 14:34 Order name: Liver (Hepatic) Function; Complete Time: 16:04 [facility] 07/19 14:33 Order name: XRAY Chest (1 view); Complete Time: 15:20 [facility] 07/19 14:33 Order name: EKG; Complete Time: 14:34 [facility] 07/19 14:33 Order name: Cardiac monitoring; Complete Time: 15:35 [facility] 07/19 14:33 Order name: EKG - Nurse/Tech; Complete Time: 14:59 [facility] 07/19 14:33 Order name: IV Saline Lock; Complete Time: 15:34 [facility] 07/19 14:33 Order name: Labs collected and sent; Complete Time: 15:34 [facility] 07/19 14:33 Order name: O2 Per Protocol; Complete Time: 15:35 [facility] 07/19 14:33 Order name: O2 Sat Monitoring; Complete Time: 14:59 [facility] 07/19 14:34 Order name: NT PRO-BNP; Complete Time: 16:04 [facility] 07/19 14:35 Order name: Urine Dipstick-Ancillary (obtain specimen); Complete Time: 14:40 [facility] 07/19 14:35 Order name: Urine Culture [facility] 07/19 14:35 Order name: Urine Culture [facility] Administered Medications: 17:19 Drug: NS 0.9% 500 ml Route: IV; Rate: bolus; Site: right antecubital; ss 18:19 Follow up: IV Status: Completed infusion; IV Intake: 500ml ss Disposition: 07/19/20 18:20 Discharged to Home. Impression: Chronic obstructive pulmonary disease with (acute) exacerbation, Diarrhea, unspecified, Pruritus. - Condition is Stable. - Discharge Instructions: Food Choices to Help Relieve Diarrhea, Adult, Diarrhea, Adult, Chronic Obstructive Pulmonary Disease Exacerbation. - Prescriptions for Hydroxyzine HCl 25 mg Oral Tablet - take 1 tablet by ORAL route every 6 hours As needed; 30 tablet. Prednisone 20 mg Oral Tablet - take 3 tablet by ORAL route once daily for 5 days; 15 tablet. Zithromax Z- Raulito 250 mg Oral Tablet - take 1 tablet by ORAL route as directed for 5 days Day 1 - take two (2) tablets one time. Day 2, 3, 4 , 5 take one (1) tablet once daily.; 6 tablet. - Medication Reconciliation Form, Thank You Letter, Antibiotic Education, Prescription Opioid Use form. - Follow up: Private Physician; When: 2 - 3 days; Reason: Recheck today's complaints, Continuance of care, Re-evaluation by your physician. Addendum: 07/20/2020 21:43 Available for consultation at all times. Did not see or evaluate patient unless p s1 otherwise noted. . Signatures: Dispatcher [employer] EDMS Blair Witt PA PA jmm Smirch, Shelby, RN RN ss Karson Nolan MD MD ps1 Nkechi Mckinney RN RN ll1 Corrections: (The following items were deleted from the chart) 07/19 18:29 18:20 07/19/2020 18:20 Discharged to Home. Impression: Chronic obstructive pulmonary ss disease with (acute) exacerbation; Diarrhea, unspecified; Pruritus. Condition is Stable. Forms are Medication Reconciliation Form, Thank You Letter, Antibiotic Education, Prescription Opioid Use. Follow up: Private Physician; When: 2 - 3 days; Reason: Recheck today's complaints, Continuance of care, Re-evaluation by your physician. jose juan
--- NOTE | 2020-07-19 18:21 | ER ---
Nurse's Notes [facility] Name: Shannan Patel Age: 70 yrs Sex: Female : 1950 Arrival Date: 07/19/2020 Time: 12:29 Bed 6 Private MD: Diagnosis: Chronic obstructive pulmonary disease with (acute) exacerbation;Diarrhea, unspecified;Pruritus Presentation: 07/19 12:39 Chief complaint: Patient states: States she needs to be checked for WBC count being ll1 elevated, blood work drawn yesterday for pre-op. WBC 15, they had to re-schedule her surgery. Cough with pale yellow sputum for 3 days. Diarrhea for 2 days. Dizziness for 2 days. States she fell in the bathroom this morning. No LOC. Coronavirus screen: Client denies travel out of the [place] in the last 14 days. congestion, cough unrelated to allergies, diarrhea, difficulty breathing, fatigue, shortness of breath, Client presents with at least one sign or symptom that may indicate coronavirus-19. Standard/surgical mask placed on the client. Ebola Screen: Patient denies travel to an Ebola-affected area in the 21 days before illness onset. Initial Sepsis Screen: Does the patient meet any 2 criteria? No. Patient's initial sepsis screen is negative. Does the patient have a suspected source of infection? Yes: Productive cough/pneumonia. Risk Assessment: Do you want to hurt yourself or someone else? Patient reports no desire to harm self or others. Onset of symptoms was July 17, 2020. 12:39 Method Of Arrival: EMS ll1 12:39 Acuity: DEVANTE 3 ll1 Historical: - Allergies: 12:44 Codeine (Hives); ll1 - PMHx: 12:44 bunions; cervical cancer; COPD; degenerative bone disease; Gastric Reflux; Herniated ll1 disc; ovarian cancer; Pneumonia; sciatica; - PSHx: 12:44 Hysterectomy; Tubal ligation; L wrist SX, R foot SX x 2; ll1 - Immunization history:: Adult Immunizations up to date. - Social history:: Smoking status: Patient reports the use of cigarette tobacco products, Smoking status: Patient/guardian denies using tobacco, the patient reports quitting approximately 5 years ago. Screenin:37 Abuse screen: Denies threats or abuse. Denies injuries from another. Nutritional hb screening: No deficits noted. Tuberculosis screening: No symptoms or risk factors identified. Fall Risk None identified. Assessment: 14:00 General: Appears in no apparent distress. Behavior is calm, cooperative. Pain: Pain hb currently is 5 out of 10 on a pain scale. Neuro: Level of Consciousness is awake, alert, obeys commands, Oriented to person, place, time, situation. Cardiovascular: Capillary refill < 3 seconds Patient's skin is warm and dry. Rhythm is regular. Respiratory: Reports cough that is productive, Respiratory effort is even, unlabored, Respiratory pattern is regular, symmetrical. GI: Reports lower abdominal pain, upper abdominal pain, diarrhea, nausea. : No signs and/or symptoms were reported regarding the genitourinary system. EENT: No signs and/or symptoms were reported regarding the EENT system. Derm: Skin is pink, warm \T\ dry. Musculoskeletal: No signs and/or symptoms reported regarding the musculoskeletal system. 15:00 Reassessment: Patient appears in no apparent distress at this time. No changes from hb previously documented assessment. Patient and/or family updated on plan of care and expected duration. Pain level reassessed. Patient is alert, oriented x 3, equal unlabored respirations, skin warm/dry/pink. 16:07 Reassessment: Patient appears in no apparent distress at this time. Patient and/or ss family updated on plan of care and expected duration. Pain level reassessed. Patient is alert, oriented x 3, equal unlabored respirations, skin warm/dry/pink. awaiting lab results. 16:58 Reassessment: Patient appears in no apparent distress at this time. Patient and/or ss family updated on plan of care and expected duration. Pain level reassessed. Patient is alert, oriented x 3, equal unlabored respirations, skin warm/dry/pink. 17:51 Reassessment: Patient appears in no apparent distress at this time. Patient and/or hb family updated on plan of care and expected duration. Pain level reassessed. Patient is alert, oriented x 3, equal unlabored respirations, skin warm/dry/pink. 18:19 Reassessment: Patient appears in no apparent distress at this time. Patient and/or ss family updated on plan of care and expected duration. Pain level reassessed. Patient states feeling better. Patient states symptoms have improved. Vital Signs: 12:39 BP 111 / 63; Pulse 68; Resp 18; Temp 97.9; Pulse Ox 95% on R/A; Weight 72.57 kg; Height ll1 5 ft. 4 in. (162.56 cm); Pain 5/10; 15:42 BP 134 / 71; Pulse 66; Resp 18; Pulse Ox 99% on R/A; hb 17:51 BP 135 / 80; Pulse 64; Resp 16; Pulse Ox 99% on R/A; hb 18:19 BP 112 / 71; Pulse 66; Resp 16; Pulse Ox 100% on R/A; Pain 0/10; ss 12:39 Body Mass Index 27.46 (72.57 kg, 162.56 cm) ll1 ED Course: 12:29 Patient arrived in ED. ds1 12:42 Triage completed. ll1 12:44 Arm band placed on. ll1 14:08 Blair Witt PA is PHCP. jmm 14:08 Karson Nolan MD is Attending Physician. jmm 14:39 Urine Culture Sent. ml 14:40 Urine Culture Sent. ml 14:56 XRAY Chest (1 view) In Process Unspecified. EDMS 14:59 Dorota Harrington, RN is Primary Nurse. ss 15:23 NT PRO-BNP Sent. sv 15:23 Magnesium Sent. sv 15:23 LFT's Sent. sv 15:23 CBC with Diff Sent. sv 15:23 Basic Metabolic Panel Sent. sv 18:28 No provider procedures requiring assistance completed. IV discontinued, intact, ss bleeding controlled, No redness/swelling at site. Pressure dressing applied. Patient maintains SpO2 saturation greater than 95% on room air. Administered Medications: 17:19 Drug: NS 0.9% 500 ml Route: IV; Rate: bolus; Site: right antecubital; ss 18:19 Follow up: IV Status: Completed infusion; IV Intake: 500ml ss Intake: 18:19 IV: 500ml; Total: 500ml. ss Outcome: 18:20 Discharge ordered by . m 18:28 Discharged to home via wheelchair, with family. ss 18:28 Condition: improved 18:28 Discharge instructions given to patient, Instructed on discharge instructions, follow up and referral plans. medication usage, Demonstrated understanding of instructions, follow-up care, medications, Prescriptions given X 3. 18:29 Patient left the ED. ss Signatures: Dispatcher [employer] EDMS Rubina Elizabeth, RN RN Blair Witt PA PA jmm Sanford, Demi ds1 Colleen Broussard Shelby, RN RN Makayla Christian, Nkechi Hinkle RN, RN RN ll1 Corrections: (The following items were deleted from the chart) 12:45 12:39 Chief complaint: Patient states: States she needs to be checked for WBC count ll1 being elevated, blood work drawn yesterday for pre-op. WBC 15, they had to re-schedule her surgery. Cough with pale yellow sputum for 3 days. Diarrhea for 2 days. ll1 13:43 12:39 Chief complaint: Patient states: States she needs to be checked for WBC count ll1 being elevated, blood work drawn yesterday for pre-op. WBC 15, they had to re-schedule her surgery. Cough with pale yellow sputum for 3 days. Diarrhea for 2 days. Dizziness for 2 days. ll1 15:43 15:42 Pulse 66bpm; Resp 18bpm; Pulse Ox 99% RA; hb hb
[2020-07-19 18:36] VITALS: TEMP 97.9
[2020-07-19 18:41] VITALS: BP 112/71; O2SAT 100
== END 2020-07-19 18:29 | disposition home or self-care (01) ==
LOC: ER 12:24
DX: J44.1 Chronic obstructive pulmonary disease with (acute) exacerbation (principal); R19.7 Diarrhea, unspecified; L29.9 Pruritus, unspecified; K21.9 Gastro-esophageal reflux disease without esophagitis; Z85.41 Personal history of malignant neoplasm of cervix uteri; Z85.43 Personal history of malignant neoplasm of ovary; Z87.891 Personal history of nicotine dependence
CPT/HCPCS: 93005; 87040 ×2; 87088; 85025; 87086; 80048; 36415; 83735; 85610; 80076; 83605; 84484; 84145; 83880; 71045; 96360; 99284; J7040

== ENCOUNTER 2020-07-26 18:50 | Emergency (ER) | payer OTHER ==
--- OUTSIDE RECORDS SUMMARY | 2020-07-26 18:53 | XMS REPORT | Continuity of Care Document ---
:1950 Author Organization [facility] t Address [address] [place] [address] [address]. [address] [place] [address] Care Team Providers Name Role Phone CORDELL [...] ID 2020-07-18 2020-07-18 Outpatient MCKENZIE LANDA [facility] [id number] [place] [place] 00:00:00 00:00:[address] 2020-07-01 2020-07-01 Outpatient GIOVANNY [facility] [id number] [place] [place] 00:00:00 00:00:00 [place] [address] 2020-06-10 2020-06-10 Outpatient [facility] [id number] [address] [place] 00:00:00 00:00:[address] 2020-06-06 2020-06-06 Outpatient MCKENZIE LANDA [facility] [id number] [place] [place] 00:00:00 00:00:[address] 2020-06-06 2020-06-06 Outpatient MCKENZIE LANDA [facility] [id number] [place] [place] 00:00:00 00:00:[address] 2019-10-28 2019-10-28 Orders Doctor ALBERTO [id number] 00:00:00 00:00:00 Only Unassigned, KRISTINA [id number] [facility] [id number] 2019-09-29 2019-09-29 Letter REMY Luis [id number] 00:00:00 00:00:00 (Out) Alexi ACEVEDO [id number] [facility] [id number] 2019-09-29 2019-09-29 Telephone REMY Luis [id number] 00:00:00 00:00:00 Anecarrington ACEVEDO [id number] [facility] [id number] 2019-09-28 2019-09-28 Urgent Pob1, Acute [facility] [id number] 13:32:46 13:52:46 [facility] [id number] [place] [id number] [address] [id number] [address] 2018-08-20 2018-08-23 Inpatient MCKENZIE LANDA [facility] [id number] [address] [place] 00:00:00 00:00:[address] Results This patient has no known results.
[2020-07-26 21:56] LABS: Absolute Lymphocytes (CBC) 4.1 K/uL (0.7-4.9); Basophils % 0.2 % (0-1.3); Hematocrit 39.9 % (36.0-45.0); Lymphocytes % 20.6 % (15.3-44.8); MPV 9.2 fL (7.6-11.3)
[2020-07-26] MEDS ORDERED: ASPIRIN 81 MG CHEWABLE TABLET ONE (22:01)
[2020-07-26] MEDS ORDERED: FAMOTIDINE 20 MG/2 ML VIAL IV ONE (22:01)
[2020-07-26] MEDS ORDERED: DIPHENHYDRAMINE 50 MG/ML VIAL ONE (22:01)
[2020-07-26 22:14] LABS: ALT/SGPT 22 U/L (12-78); AST/SGOT 14 U/L (15-37); Albumin 3.2 g/dL (3.4-5.0); Alkaline Phosphatase 76 U/L (45-117); BUN Blood Urea Nitrogen 22 mg/dL (7-18); Bicarbonate 28 mmol/L (21-32); Bilirubin Direct < 0.1 mg/dL (0-0.2); Bilirubin Total 0.2 mg/dL (0.2-1.0); Glucose Level 93 mg/dL (74-106); Lipase 137 U/L (73-393); Magnesium 2.1 mg/dL (1.8-2.4); NT PRO-BNP 1164 pg/mL (<125); Potassium 3.9 mmol/L (3.5-5.1); Protein, Total 6.9 g/dL (6.4-8.2); Sodium Level 143 mmol/L (136-145); Troponin (Emerg Dept Use Only) < 0.02 ng/mL (0.0-0.045)
[2020-07-26 22:41] LABS: Blood Morphology Comment NOT SEEN (NOT SEEN); Platelet Estimate ADEQ
--- NOTE | 2020-07-26 22:42 | EDPHYS ---
Physician Documentation [facility] Name: Shannan Patel Age: 70 yrs Sex: Female : 1950 Arrival Date: 07/26/2020 Time: 18:53 Bed 23 Private MD: Ezra Najera HPI: 07/26 21:19 This 70 yrs old Female presents to ER via Ambulatory with complaints of Chest maria m Pain, Rash. 21:19 The patient or guardian reports chest pain that is located primarily in the epigastric maria m area. Historical: - Allergies: 19:06 Codeine (Hives); ca1 - PMHx: 19:06 bunions; cervical cancer; COPD; degenerative bone disease; Gastric Reflux; Herniated ca1 disc; ovarian cancer; Pneumonia; sciatica; - PSHx: 19:06 Hysterectomy; Tubal ligation; L wrist SX, R foot SX x 2; ca1 - Immunization history:: Flu vaccine is not up to date. - Social history:: Smoking status: Patient/guardian denies using tobacco, the patient reports quitting approximately 2 years ago. ROS: 21:20 Constitutional: Negative for fever, chills, and weight loss, Eyes: Negative for injury, maria m pain, redness, and discharge, ENT: Negative for injury, pain, and discharge, Neck: Negative for injury, pain, and swelling, Respiratory: Negative for shortness of breath, cough, wheezing, and pleuritic chest pain, Abdomen/GI: Negative for abdominal pain, nausea, vomiting, diarrhea, and constipation, Back: Negative for injury and pain, : Negative for injury, bleeding, discharge, and swelling, MS/Extremity: Negative for injury and deformity, Neuro: Negative for headache, weakness, numbness, tingling, and seizure, Psych: Negative for depression, anxiety, suicide ideation, homicidal ideation, and hallucinations, Allergy/Immunology: Negative for hives, rash, and allergies, Endocrine: Negative for neck swelling, polydipsia, polyuria, polyphagia, and marked weight changes, Hematologic/Lymphatic: Negative for swollen nodes, abnormal bleeding, and unusual bruising. 21:20 Cardiovascular: Positive for chest pain, of the chest. 21:20 Skin: Positive for rash, diffusely. Exam: 21:20 Constitutional: This is a well developed, well nourished patient who is awake, alert, maria m and in no acute distress. Head/Face: Normocephalic, atraumatic. Eyes: Pupils equal round and reactive to light, extra-ocular motions intact. Lids and lashes normal. Conjunctiva and sclera are non-icteric and not injected. Cornea within normal limits. Periorbital areas with no swelling, redness, or edema. ENT: Nares patent. No nasal discharge, no septal abnormalities noted. Tympanic membranes are normal and external auditory canals are clear. Oropharynx with no redness, swelling, or masses, exudates, or evidence of obstruction, uvula midline. Mucous membranes moist. Neck: Trachea midline, no thyromegaly or masses palpated, and no cervical lymphadenopathy. Supple, full range of motion without nuchal rigidity, or vertebral point tenderness. No Meningismus. Chest/axilla: Normal chest wall appearance and motion. Nontender with no deformity. No lesions are appreciated. Cardiovascular: Regular rate and rhythm with a normal S1 and S2. No gallops, murmurs, or rubs. Normal PMI, no JVD. No pulse deficits. Respiratory: Lungs have equal breath sounds bilaterally, clear to auscultation and percussion. No rales, rhonchi or wheezes noted. No increased work of breathing, no retractions or nasal flaring. Abdomen/GI: Soft, non-tender, with normal bowel sounds. No distension or tympany. No guarding or rebound. No evidence of tenderness throughout. Back: No spinal tenderness. No costovertebral tenderness. Full range of motion. Female : Normal external genitalia. MS/ Extremity: Pulses equal, no cyanosis. Neurovascular intact. Full, normal range of motion. Neuro: Awake and alert, GCS 15, oriented to person, place, time, and situation. Cranial nerves II-XII grossly intact. Motor strength 5/5 in all extremities. Sensory grossly intact. Cerebellar exam normal. Normal gait. Psych: Awake, alert, with orientation to person, place and time. Behavior, mood, and affect are within normal limits. 21:20 Skin: Appearance: Color: normal in color, Temperature: normal temperature, Moisture: normal moisture, petechiae, not noted, ecchymosis, not noted, diaphoresis is not appreciated. 21:28 ECG was reviewed by the Attending Physician. [facility] Vital Signs: 19:03 BP 138 / 76; Pulse 71; Resp 16 S; Temp 97.6(TE); Pulse Ox 96% on R/A; Weight 72.57 kg ca1 (R); Height 5 ft. 4 in. (162.56 cm) (R); Pain 6/10; 22:37 BP 139 / 69; Pulse 60; Resp 16; Pulse Ox 94% on R/A; zb 23:13 BP 135 / 70; Pulse 58; Resp 18; Pulse Ox 95% on R/A; zb 19:03 Body Mass Index 27.46 (72.57 kg, 162.56 cm) ca1 MDM: 20:50 Patient medically screened. maria m 21:22 Differential diagnosis: abnormal EKG, anxiety, coronary artery disease chest wall pain, maria m Cholelithiasis hiatal hernia, pancreatitis, stable angina, unstable angina. HEART Score: History: Slightly Suspicious (0), ECG: Normal (0), Age: > or = 65 years (2), Risk Factors: 1 or 2 risk factors (1), [+ Family HX] [Obesity]. The patient was given aspirin in the Emergency Department. The patient's deep vein thrombosis risk score was calculated as follows: Total Score: 0. This patient was found to be at low risk for a deep vein thrombosis by using the Well's assessment criteria. The patient's pulmonary embolism risk score was calculated as follows: Total Score: 0-2 points. This patient was found to be at low risk for a pulmonary embolism by using the Well's assessment criteria. KORI Risk Score: TOTAL SCORE = 0. Data reviewed: vital signs, nurses notes, lab test result(s), EKG, radiologic studies, plain films. Data interpreted: threat monitoring analyst: rate is 96 beats/min. Test interpretation: by ED physician or midlevel provider: ECG, plain radiologic studies. Counseling: I had a detailed discussion with the patient and/or guardian regarding: the historical points, exam findings, and any diagnostic results supporting the discharge/admit diagnosis, lab results, radiology results, the need for outpatient follow up, for definitive care, a table games supervisor, a family practitioner, a furniture painter. 07/26 21:19 Order name: Basic Metabolic Panel [facility] 07/26 21:19 Order name: CBC with Diff [facility] 07/26 21:19 Order name: LFT's [facility] 07/26 21:19 Order name: Magnesium [facility] 07/26 21:19 Order name: NT PRO-BNP; Complete Time: 22:19 [facility] 07/26 21:19 Order name: Troponin (emerg Dept Use Only); Complete Time: 22:19 [facility] 07/26 21:19 Order name: Lipase; Complete Time: 22:19 [facility] 07/26 21:20 Order name: Basic Metabolic Panel; Complete Time: 22:19 EDMS 07/26 21:20 Order name: CBC with Automated Diff [facility] 07/26 21:20 Order name: Liver (Hepatic) Function; Complete Time: 22:19 EDMS 07/26 21:20 Order name: Magnesium; Complete Time: 22:20 EDMS 07/26 22:00 Order name: Manual Differential [facility] 07/26 22:34 Order name: Urine Dipstick--Ancillary (enter results) tt3 07/26 21:19 Order name: XRAY Chest (1 view) [facility] 07/26 21:19 Order name: EKG; Complete Time: 21:20 [facility] 07/26 21:19 Order name: Cardiac monitoring; Complete Time: 21:40 [facility] 07/26 21:19 Order name: EKG - Nurse/Tech; Complete Time: 21:39 [facility] 07/26 21:19 Order name: IV Saline Lock; Complete Time: 21:40 [facility] 07/26 21:19 Order name: Labs collected and sent; Complete Time: 21:40 [facility] 07/26 21:19 Order name: O2 Per Protocol; Complete Time: 21:40 [facility] 07/26 21:19 Order name: O2 Sat Monitoring; Complete Time: 21:40 [facility] 07/26 21:19 Order name: Urine Dipstick-Ancillary (obtain specimen); Complete Time: 23:03 [facility] EC:28 Rate is 71 beats/min. Rhythm is regular. QRS Wright is Normal. DC interval is normal. QRS maria m interval is normal. QT interval is normal. No Q waves. T waves are Normal. No ST changes noted. Clinical impression: Normal ECG and No evidence of ischemia. Interpreted by me. Reviewed by me. Administered Medications: 22:02 Drug: Aspirin Chewable Tablet 162 mg Route: PO; zb 22:44 Follow up: Response: No adverse reaction zb 22:03 Drug: Benadryl 25 mg Route: IVP; Site: right antecubital; zb 22:44 Follow up: Response: No adverse reaction; Marked relief of symptoms zb 22:03 Drug: Pepcid 20 mg Route: IVP; Site: right antecubital; zb 22:44 Follow up: Response: No adverse reaction; Marked relief of symptoms zb 23:03 Drug: LevOfloxacin 500 mg Route: PO; zb 23:10 Follow up: Response: Medication administered at discharge. zb Disposition: 07/26/20 22:41 Discharged to Home. Impression: Dermatitis, unspecified, Rash and other nonspecific skin eruption, Chronic obstructive pulmonary disease, unspecified, Elevated white blood cell count. - Condition is Stable. - Discharge Instructions: Chronic Bronchitis, Contact Dermatitis, Rash, Rash, Tixi-[id number], Contact Dermatitis, Gtsr-bk-Vesy, Aspirin and Your Heart. - Prescriptions for Benadryl 25 mg Oral Capsule - take 1 capsule by ORAL route every 6 hours As needed; 30 tablet. Pepcid 20 mg Oral Tablet - take 1 tablet by ORAL route every 12 hours for 10 days; 20 tablet. Levaquin 500 mg Oral Tablet - take 1 tablet by ORAL route once daily for 6 days; 6 tablet. Albuterol Sulfate 90 mcg/actuation - inhale 1-2 puff by INHALATION route every 4-6 hours; 1 Inhaler. - Medication Reconciliation Form, Thank You Letter, Antibiotic Education, Prescription Opioid Use form. - Follow up: Private Physician; When: 2 - 3 days; Reason: Recheck today's complaints, Continuance of care, Re-evaluation by your physician. Follow up: Ward Escalante; When: 2 - 3 days; Reason: Recheck today's complaints, Re-evaluation by your physician. Follow up: Nilay Varma; When: 2 - 3 days; Reason: Recheck today's complaints, Continuance of care, Re-evaluation by your physician. - Problem is new. - Symptoms have improved. Signatures: Dispatcher [employer] EDEzra Mcnally MD MD cha Acob, Cheryl, RN RN ca1 Brown, Zipporah, RN RN zb Corrections: (The following items were deleted from the chart) 23:14 22:41 07/26/2020 22:41 Discharged to Home. Impression: Dermatitis, unspecified; Rash zb and other nonspecific skin eruption; Chronic obstructive pulmonary disease, unspecified; Elevated white blood cell count. Condition is Stable. Discharge Instructions: Contact Dermatitis, Rash, Rash, Vlwd-ak-Ajud, Contact Dermatitis, Hkmg-[id number]-Bnxq, Aspirin and Your Heart. Prescriptions for Benadryl 25 mg Oral Capsule - take 1 capsule by ORAL route every 6 hours As needed; 30 tablet, Pepcid 20 mg Oral Tablet - take 1 tablet by ORAL route every 12 hours for 10 days; 20 tablet. and Forms are Medication Reconciliation Form, Thank You Letter, Antibiotic Education, Prescription Opioid Use. Follow up: Private Physician; When: 2 - 3 days; Reason: Recheck today's complaints, Continuance of care, Re-evaluation by your physician. Follow up: Ward Escalante; When: 2 - 3 days; Reason: Recheck today's complaints, Re-evaluation by your physician. Follow up: Nilay Varma; When: 2 - 3 days; Reason: Recheck today's complaints, Continuance of care, Re-evaluation by your physician. Problem is new. Symptoms have improved. maria m
--- NOTE | 2020-07-26 22:42 | ER ---
Nurse's Notes [facility] Name: Shannan Patel Age: 70 yrs Sex: Female : 1950 Arrival Date: 07/26/2020 Time: 18:53 Bed 23 Private MD: Diagnosis: Dermatitis, unspecified;Rash and other nonspecific skin eruption;Chronic obstructive pulmonary disease, unspecified;Elevated white blood cell count Presentation: 07/26 19:03 Chief complaint: Patient states: Chest pain since Friday. Pain described as squeezing ca1 pain. Also reports rash all over that was seen here on Friday and by the PCP yesterday. Coronavirus screen: Client denies travel out of the [place] in the last 14 days. At this time, the client does not indicate any symptoms associated with coronavirus-19. Ebola Screen: Patient negative for fever greater than or equal to 101.5 degrees Fahrenheit, and additional compatible Ebola Virus Disease symptoms Patient denies exposure to infectious person. Patient denies travel to an Ebola-affected area in the 21 days before illness onset. No symptoms or risks identified at this time. Initial Sepsis Screen: Does the patient meet any 2 criteria? No. Patient's initial sepsis screen is negative. Does the patient have a suspected source of infection? No. Patient's initial sepsis screen is negative. Risk Assessment: Do you want to hurt yourself or someone else? Patient reports no desire to harm self or others. Onset of symptoms was July 26, 2020. 19:03 Method Of Arrival: Ambulatory ca1 19:03 Acuity: DEVANTE 3 ca1 Historical: - Allergies: 19:06 Codeine (Hives); ca1 - PMHx: 19:06 bunions; cervical cancer; COPD; degenerative bone disease; Gastric Reflux; Herniated ca1 disc; ovarian cancer; Pneumonia; sciatica; - PSHx: 19:06 Hysterectomy; Tubal ligation; L wrist SX, R foot SX x 2; ca1 - Immunization history:: Flu vaccine is not up to date. - Social history:: Smoking status: Patient/guardian denies using tobacco, the patient reports quitting approximately 2 years ago. Screenin:48 Abuse screen: Denies threats or abuse. Denies injuries from another. Nutritional zb screening: No deficits noted. Tuberculosis screening: No symptoms or risk factors identified. Fall Risk None identified. Assessment: 21:30 General: Appears in no apparent distress. Behavior is anxious. Pain: Complains of pain zb in chest Pain does not radiate. Quality of pain is described as burning, Pain began 2-3 days ago. Is intermittent. Neuro: Level of Consciousness is awake, alert, obeys commands, Oriented to person, place, time, situation. Cardiovascular: Reports chest pain, Denies fatigue, nausea, shortness of breath, syncope, vomiting, Heart tones S1 S2 present Capillary refill < 3 seconds Patient's skin is warm and dry. Pulses are all present. Respiratory: Airway is patent Respiratory effort is even, unlabored, Respiratory pattern is regular, symmetrical. GI:. : No deficits noted. EENT: No deficits noted. Derm: Rash noted that is papular, red, urticaria, on generalized. Musculoskeletal: Range of motion: intact in all extremities. 22:30 Reassessment: Patient appears in no apparent distress at this time. Patient and/or zb family updated on plan of care and expected duration. Pain level reassessed. Patient is alert, oriented x 3, equal unlabored respirations, skin warm/dry/pink. no changes at this time. 23:12 Reassessment: Patient appears in no apparent distress at this time. Patient and/or zb family updated on plan of care and expected duration. Pain level reassessed. Patient is alert, oriented x 3, equal unlabored respirations, skin warm/dry/pink. d/c information given. IV removed. gait even and steady. no questions at this time. Vital Signs: 19:03 BP 138 / 76; Pulse 71; Resp 16 S; Temp 97.6(TE); Pulse Ox 96% on R/A; Weight 72.57 kg ca1 (R); Height 5 ft. 4 in. (162.56 cm) (R); Pain 6/10; 22:37 BP 139 / 69; Pulse 60; Resp 16; Pulse Ox 94% on R/A; zb 23:13 BP 135 / 70; Pulse 58; Resp 18; Pulse Ox 95% on R/A; zb 19:03 Body Mass Index 27.46 (72.57 kg, 162.56 cm) ca1 ED Course: 18:53 Patient arrived in ED. as 19:05 Triage completed. ca1 19:06 Arm band placed on right wrist. ca1 20:50 Ezra Ye MD is Attending Physician. [facility] 21:30 Inserted saline lock: 20 gauge in right antecubital area, using aseptic technique. zb Blood collected. Patient maintains SpO2 saturation greater than 95% on room air. 21:39 Belia Horn RN is Primary Nurse. zb 21:53 XRAY Chest (1 view) In Process Unspecified. EDDE 22:39 Ward Escalante MD is Referral Physician. [facility] 22:39 Nilay Varma MD is Referral Physician. [facility] 22:48 Patient has correct armband on for positive identification. Bed in low position. Call zb light in reach. Side rails up X 1. detail drafter on. Pulse ox on. NIBP on. Door closed. Noise minimized. Warm blanket given. 22:48 No provider procedures requiring assistance completed. zb 23:12 IV discontinued, intact, bleeding controlled, No redness/swelling at site. Pressure zb dressing applied. Administered Medications: 22:02 Drug: Aspirin Chewable Tablet 162 mg Route: PO; zb 22:44 Follow up: Response: No adverse reaction zb 22:03 Drug: Benadryl 25 mg Route: IVP; Site: right antecubital; zb 22:44 Follow up: Response: No adverse reaction; Marked relief of symptoms zb 22:03 Drug: Pepcid 20 mg Route: IVP; Site: right antecubital; zb 22:44 Follow up: Response: No adverse reaction; Marked relief of symptoms zb 23:03 Drug: LevOfloxacin 500 mg Route: PO; zb 23:10 Follow up: Response: Medication administered at discharge. zb Outcome: 22:41 Discharge ordered by . maria m 23:12 Discharged to home ambulatory. zb 23:12 Condition: stable 23:12 Discharge instructions given to patient, Instructed on discharge instructions, follow up and referral plans. medication usage, Demonstrated understanding of instructions, follow-up care, medications, Prescriptions given X 3. 23:14 Patient left the ED. zb Signatures: Dispatcher [employer] EDDE Ezra Ye MD MD cha Martinez, Amelia as Acob, Cheryl, RN RN ca1 Belia Horn RN RN zb
[2020-07-26 22:47] LABS: Urine Blood NEGATIVE (NEG); Urine Glucose NEGATIVE (NEG); Urine Protein NEGATIVE (NEG); Urine Specific Gravity 1.025 (1.005-1.030)
[2020-07-26] MEDS ORDERED: levoFLOXacin 250 MG TAB ONE (23:18)
[2020-07-27 03:38] VITALS: TEMP 97.6
[2020-07-27 03:43] VITALS: BP 135/70; O2SAT 95
--- NOTE | 2020-07-27 07:19 | EKG ---
Test Date: 2020-07-26 Test Time: 18:02:15 Machine Hamper Maker: JEFFREY MEASUREMENT RESULTS: Intervals: Rate: 71 MD: 118 QRSD: 86 QT: 396 QTc: 430 [place]: P: 38 MD: 118 QRS: 19 T: 27 INTERPRETIVE STATEMENTS: Sinus rhythm with occasional premature ventricular complexes Otherwise normal ECG Compared to ECG 07/19/2020 13:58:28 Ventricular premature complex(es) now present Myocardial infarct finding no longer present Electronically Signed On 07-27-20 07:18:05 CDT by Ward Escalante
--- NOTE | 2020-07-27 08:17 | RAD REPORT ---
EXAM DESCRIPTION: [facility] Single View07/26/2020 9:56 pm CLINICAL HISTORY: Chest pain COMPARISON: July 19 FINDINGS: A few areas of scarring are present within the lungs. The lungs are hyperaerated. The lungs appear clear of acute infiltrate. The heart is borderline enlarged IMPRESSION: No acute abnormalities displayed
== END 2020-07-26 23:14 | disposition home or self-care (01) ==
LOC: ER 18:50
DX: L30.9 Dermatitis, unspecified (principal); J44.9 Chronic obstructive pulmonary disease, unspecified; D72.829 Elevated white blood cell count, unspecified; Z87.891 Personal history of nicotine dependence; R07.9 Chest pain, unspecified; Z85.41 Personal history of malignant neoplasm of cervix uteri; K21.9 Gastro-esophageal reflux disease without esophagitis; Z85.43 Personal history of malignant neoplasm of ovary
CPT/HCPCS: 93005; 85025; 80048; 36415; 83735; 80076; 81003; 84484; 83690; 83880; 71045; 96375; 96374; 99285; J1200

== ENCOUNTER 2021-10-29 11:38 | Emergency (ER) | payer OTHER ==
--- OUTSIDE RECORDS SUMMARY | 2021-10-29 11:41 | XMS REPORT | Continuity of Care Document ---
:1950 Author Organization [facility] t Address [address] [place] [address] Dr. Pedroza. [address] [place] [address] Care Team Providers Name Role Phone [facility] Attending Clinician Unavailable CORDELL Attending Clinician Unavailable MD JAROD LANDA Attending Clinician Unavailable AIMEE CANNON Attending Clinician Unavailable GIOVANNY Attending Clinician Unavailable Doctor Unassigned, Name Attending Clinician Unavailable Janelle LAGUNA Attending Clinician Unavailable [facility] Attending Clinician Unavailable Lisha MARIE, M Attending Clinician CORDELL Admitting Clinician Unavailable MD JAROD LANDA Admitting Clinician Unavailable Payers Payer Name Policy Type Policy Number Effective Date Expiration Date [id number] 2016 00:00:00 Problems Condition Condition Condition Status Onset Resolution Last Treating Co mments Source Name Details Category Date Date Treatment Clinician Date Cervical Cervical Disease Active 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 [place] without [place] myel[place] myelopathy 00 Me dical Branch Degenerati Degenerati Disease Active 2019- U nivers on of on of 09-27 ity of lumbar lumbar 00:00: [place] interverte interverte 00 Me dical bral disc bral disc Bran ch Hiatal Hiatal Disease Active 2019 Univers hernia hernia 4-18 ity of 00:00: [place] 00 Medical Branch Epigastric Epigastric Disease Active 2019 Overview : Univers pain pain 4-10 Added ity of 00:00: automatic [place] 00 ally from Medical request Branch for surgery [id number] Incarcerat Incarcerat Disease Active U nivers ed ventral ed ventral 4-10 it y of hernia hernia 00:00: [place] [facility] Spasm of Spasm of Disease Active Unive rs back back 4-03 ity of muscles muscles 00:00: [place] [facility] Zenker's Zenker's Disease Active Unive rs diverticul diverticul 3-04 it y of um um 00:00: [place] [facility] Chronic Chronic Disease Active Univers pain of pain of 5-25 [place] of right [place] COPD COPD Disease Active 2015-05 Univers (chronic (chronic 1-28 [place]y of obstructiv obstructiv 00:[place] Medical pulmonary pulmonary Bran ch disease) disease) Dysuria Dysuria Disease Active Univers 7-25 ity of 00:00: [place] [facility] Other, Other, Disease Active Univers mixed, or mixed, or 3-31 ity of unspecifie unspecifie 00:[place] 00 Medical nondepende nondepende Br anch nt drug nt drug abuse, abuse, unspecifie unspecifie d d Depressive Depressive Disease Active Overview : Univers disorder disorder 3-31 ICD10 ity of 00:00: Diagnosis Term Medical [employer] Branch Utility Allergies, Adverse Reactions, Alerts Allergy Allergy Status Severity Reaction(s) Onset Inactive Treating Comm ents Source Name Type Date Date Clinician CODEINE DRUG Active Hives Univers INGREDI 3-30 ity of 00:00: [place] [facility] Codeine Propensi Active Hives Univers ty to 3-30 ity of adverse 00:00: [place] reaction 00 Medical s Branch Social History Social Habit Start Date Stop Date Quantity Comments Source History of Cigarette Smoker Universi ty of tobacco use [facility] Sex Assigned At Universit y of [facility] Exposure to Not sure University of SARS-CoV-2 [facility] (event) [place] Alcohol intake 2019-09-28 2019-09-28 University of 00:00:00 00:00:00 [facility] Tobacco Comment 2015-10-19 2015-10-19 Smokes only on Unive rsity of 00:00:00 00:00:00 occasion [facility] Smoking Status Start Date Stop Date Source Current some day smoker 2019-09-28 00:00:00 [facility] Branch Medications Ordered Filled Start Stop Current Ordering Indication Dosage Frequency Signature Comments Components Source Medication Medication Date Date Medication? Clinician (SIG) Name Name traMADOL 2019- No 50mg Take 50 mg Un bright (ULTRAM) 50 5-26 05-26 by mouth ity of mg tablet 19:12: 00:00 every 4 [place] 10 :00 (four) Medical hours as Branch needed. fluticasone 2019- No 1{puff} Inhale 1 Univers -salmeterol 5-26 05-26 Puff as ity of (ADVAIR) 19:12: 00:00 needed. [place] 250-50 10 :00 Medical mcg/dose Branch inhalation disk cyclobenzap Yes cyclobenza Univers rine 10 mg 5-26 heriberto 10 ity o f tablet 19:12: mg tablet [place] 05 [facility] naloxone 0 Yes Narcan 4 Unive rs (NARCAN) 4 5-26 mg/actuati ity of mg/actuatio 19:12: on nasal [place] Volo 05 spray [facility] Branch meloxicam 2019-0 Yes Mobic 7.5 Uni vers (MOBIC) 7.5 5-26 mg tablet ity of mg tablet 19:12: Take 1 [place] 05 tablet Medical every day Branch by oral route as directed for 7 days. fluticasone Yes Trelegy Uni vers -umeclidin- 5-26 Ellipta ity o f vilanter 19:12: 100 [place] 100-62.5-25 05 mcg-62.5 Medi ann-marie mcg DsDv mcg-25 mcg Branc h powder for inhalation cyclobenzap Yes cyclobenza Univers rine 10 mg 5-26 heriberto 10 ity o f tablet 19:12: mg tablet [address] Branch naloxone 2020-0 Yes Narcan 4 Unive rs (NARCAN) 4 5-26 mg/actuati ity of mg/actuatio 19:12: [place] Vol[place] 05 spray Medical Branch meloxicam 2019-0 Yes Mobic 7.5 Uni vers (MOBIC) 7.5 5-26 mg tablet ity of mg tablet 19:12: Take 1 [place] 05 tablet Medical every day Branch by oral route as directed for 7 days. fluticasone 2020-0 Yes Trelegy Uni vers -umeclidin- 5-26 Ellipta ity o f vilanter 19:12: 100 [place] 100-62.5-25 05 mcg-62.5 Medi ann-marie mcg DsDv mcg-25 mcg Branc h powder for inhalation cyclobenzap 2020-0 Yes cyclobenza Univers rine 10 mg 5-26 heriberto 10 ity o f tablet 19:12: mg tablet [place] [address] Medical Branch naloxone 2020-0 Yes Narcan 4 Unive rs (NARCAN) 4 5-26 mg/actuati ity of mg/actuatio 19:12: [place] nasal [place] Vol[place] 05 spray Medical Branch meloxicam 2020-0 Yes Mobic 7.5 Uni vers (MOBIC) 7.5 5-26 mg tablet ity of mg tablet 19:12: Take 1 [place] 05 tablet Medical every day Branch by oral route as directed for 7 days. fluticasone 2020-0 Yes Trelegy Uni vers -umeclidin- 5-26 Ellipta ity o f vilanter 19:12: 100 [place] 100-62.5-25 05 mcg-62.5 Medi ann-marie mcg DsDv mcg-25 mcg Branc h powder for inhalation cyclobenzap 2020-0 Yes cyclobenza Univers rine 10 mg 5-26 heriberto 10 ity o f tablet 19:12: mg tablet [place] [address] Medical Branch naloxone 2020-0 Yes Narcan 4 Unive rs (NARCAN) 4 5-26 mg/actuati ity of mg/actuatio 19:12: [place] Vol[place] 05 spray Medical Branch meloxicam 2020-0 Yes Mobic 7.5 Uni vers (MOBIC) 7.5 5-26 mg tablet ity of mg tablet 19:12: Take 1 [place] 05 tablet Medical every day Branch by oral route as directed for 7 days. fluticasone 2020-0 Yes Trelegy Uni vers -umeclidin- 5-26 Ellipta ity o f vilanter 19:12: 100 [place] 100-62.5-25 05 mcg-62.5 Medi ann-marie mcg DsDv mcg-25 mcg Branc h powder for inhalation doxycycline 2020-0 2020- No [id number] 100mg Take 1 Univers hyclate 100 5-26 06-03 tablet by it y of mg tablet 00:00: 04:59 mouth 2 [place] 00 :00 (two) Medical times Branch daily for 7 days. doxycycline 2020-0 2020- No [id number] 100mg Take 1 Univers hyclate 100 5- 06-03 tablet by it y of mg tablet 00:00: 04:59 mouth 2 [place] 00 :00 (two) Medical times Branch daily for 7 days. doxycycline 2020-0 2020- No [id number] 100mg Take 1 Univers hyclate 100 5-26 06-03 tablet by it y of mg tablet 00:00: 04:59 mouth 2 [place] 00 :00 (two) Medical times Branch daily for 7 days. methocarbam 2020-0 Yes TK 1 T PO U nivers ol 750 mg 5-21 BID FOR 7 ity o f tablet 00:00: Medical Branch methocarbam 2020-0 Yes TK 1 T PO U nivers ol 750 mg 5-21 BID FOR 7 ity o f tablet 00:00: Medical Branch methocarbam 2020-0 Yes TK 1 T PO U nivers ol 750 mg 5-21 BID FOR 7 ity o f tablet 00:00: Medical Branch methocarbam 2020-0 Yes TK 1 T PO U nivers ol 750 mg 5-21 BID FOR 7 ity o f tablet 00:00: Medical Branch albuterol-i 2016- Yes 1{puff} Inhale 1 Univers pratropium 7-02 Puff 4 ity of 20-100 00:00: (four) [place] mcg/actuati 00 times Medical on inhaler daily. Branch traMADOL Yes 50mg Take 1 Univers (ULTRAM) 50 7-02 tablet by ity of mg tablet 00:00: mouth 00 every 6 Medical (six) Branch hours as needed for Pain (scale 1-3). albuterol-i 2016- Yes 1{puff} Inhale 1 Univers pratropium 7-02 Puff 4 ity of 20-100 00:00: (four) [place] mcg/actuati 00 times Medical on inhaler daily. Branch traMADOL Yes 50mg Take 1 Univers (ULTRAM) 50 7-02 tablet by ity of mg tablet 00:00: mouth every 6 Medical (six) Branch hours as needed for Pain (scale 1-3). albuterol-i 2017-0 Yes 1{puff} Inhale 1 Univers pratropium 7-02 Puff 4 ity of 20-100 00:00: (four) [place] mcg/actuati 00 times Medical on inhaler daily. Branch traMADOL 2016-0 Yes 50mg Take 1 Univers (ULTRAM) 50 7-02 tablet by ity of mg tablet 00:00: mouth [place] 00 every 6 Medical (six) Branch hours as needed for Pain (scale 1-3). albuterol-i 2016- Yes 1{puff} Inhale 1 Univers pratropium 7-02 Puff 4 ity of 20-100 00:00: (four) [place] mcg/actuati 00 times Medical on inhaler daily. Branch traMADOL 0 Yes 50mg Take 1 Univers (ULTRAM) 50 7-02 tablet by ity of mg tablet 00:00: mouth [place] 00 every 6 Medical (six) Branch hours as needed for Pain (scale 1-3). Budesonide 2020- No 1{puff} Inhale 1 Univers (PULMICORT 7-02 05-26 Puff ity of FLEXHALER) 00:00: 00:00 daily. [place] 90 00 :00 Medical mcg/actuati Branch on aerosol powder diclofenac 2016-0 Yes 75mg Take 1 Unive rs 75 mg EC 5-26 tablet by ity of tablet 00:00: mouth 2 (two) Medical times Branch daily with meals. diclofenac 2017-0 Yes 75mg Take 1 Unive rs 75 mg EC 5-26 tablet by ity of tablet 00:00: mouth 2 (two) Medical times Branch daily with meals. diclofenac 2017-0 Yes 75mg Take 1 Unive rs 75 mg EC 5-26 tablet by ity of tablet 00:00: mouth 2 [place] (two) Medical times Branch daily with meals. diclofenac 2017-0 Yes 75mg Take 1 Unive rs 75 mg EC 5-26 tablet by ity of tablet 00:00: mouth 2 [place] (two) Medical times Branch daily with meals. BUSPIRONE 2015-05 Yes 1 tab po Univ ers 10 MG ORAL 2-09 TID ity of TAB 19:55: [place] 46 Medical Branch CELEXA 20 2015-05 Yes 2 tabs po Uni vers MG ORAL TAB 2-09 Qam ity of 19:55: [address] omeprazole 2015-05 Yes 40mg Take 40 mg U nivers (PRILOSEC) 2-09 by mouth ity o f 40 mg 19:55: daily. [address] BUSPIRONE 2015-05 Yes 1 tab po Univ ers 10 MG ORAL 2-09 TID ity of TAB 19:55: [address] CELEXA 20 2015-05 Yes 2 tabs po Uni vers MG ORAL TAB 2-09 Qam ity of 19:55: [address] omeprazole 2015-05 Yes 40mg Take 40 mg U nivers (PRILOSEC) 2-09 by mouth ity o f 40 mg 19:55: daily. [address] BUSPIRONE 2015-05 Yes 1 tab po Univ ers 10 MG ORAL 2-09 TID ity of TAB 19:55: [address] CELEXA 20 2015-05 Yes 2 tabs po Uni vers MG ORAL TAB 2-09 Qam ity of 19:55: [address] omeprazole 2015-05 Yes 40mg Take 40 mg U nivers (PRILOSEC) 2-09 by mouth ity o f 40 mg 19:55: daily. [address] BUSPIRONE 2015-05 Yes 1 tab po Univ ers 10 MG ORAL 2-09 TID ity of TAB 19:55: [address] CELEXA 20 2015-05 Yes 2 tabs po Uni vers MG ORAL TAB 2-09 Qam ity of 19:55: [address] omeprazole 2015-05 Yes 40mg Take 40 mg U nivers (PRILOSEC) 2-09 by mouth ity o f 40 mg 19:55: daily. [address] zolpidem 2015-05 Yes 5mg Take 1 Univers (AMBIEN) 5 2-09 tablet by ity of mg tablet 00:00: mouth [place] 00 bedtime as Medical needed for Branch Insomnia. albuterol 2015-05 Yes .63mg Use 3 mL Uni vers (ACCUNEB) 2-09 as ity of 0.63 mg/3 00:00: directed [place] mL 00 every 6 Medical nebulizer (six) Branch solution hours as needed for Wheezing. ipratropium 2015-05 Yes .5mg Inhale 2.5 Univers (ATROVENT) 2-09 mL every 6 ity of 0.02 % 00:00: (six) [place] nebulizer 00 hours as Medica l solution needed for Branc h Wheezing or Shortness of Breath. HYDROcodone 2015-05 Yes 1{tbl} Take 1 Un bright -acetaminop 2-09 tablet by ity of hen (NORCO) 00:00: mouth [place] 10-325 mg 00 every 4 Medical tablet (four) Branch hours as needed for Pain (scale 1-3), Pain (scale 4-6), Pain (scale 7-10) or Pain unrelieved by non-narcot ic analgesics . zolpidem 2015-05 Yes 5mg Take 1 Univers (AMBIEN) 5 2-09 tablet by ity of mg tablet 00:00: mouth [place] 00 bedtime as Medical needed for Branch Insomnia. albuterol 2015-05 Yes .63mg Use 3 mL Uni vers (ACCUNEB) 2-09 as ity of 0.63 mg/3 00:00: directed [place] mL 00 every 6 Medical nebulizer (six) Branch solution hours as needed for Wheezing. ipratropium 2015-05 Yes .5mg Inhale 2.5 Univers (ATROVENT) 2-09 mL every 6 ity of 0.02 % 00:00: (six) [place] nebulizer 00 hours as Medica l solution needed for Branc h Wheezing or Shortness of Breath. HYDROcodone 2015-05 Yes 1{tbl} Take 1 Un bright -acetaminop 2-09 tablet by ity of hen (NORCO) 00:00: mouth [place] 10-325 mg 00 every 4 Medical tablet (four) Branch hours as needed for Pain (scale 1-3), Pain (scale 4-6), Pain (scale 7-10) or Pain unrelieved by non-narcot ic analgesics . zolpidem 2015-05 Yes 5mg Take 1 Univers (AMBIEN) 5 2-09 tablet by ity of mg tablet 00:00: mouth [place] 00 bedtime as Medical needed for Branch Insomnia. albuterol 2015-05 Yes .63mg Use 3 mL Uni vers (ACCUNEB) 2-09 as ity of 0.63 mg/3 00:00: directed [place] mL 00 every 6 Medical nebulizer (six) Branch solution hours as needed for Wheezing. ipratropium 2015-05 Yes .5mg Inhale 2.5 Univers (ATROVENT) 2-09 mL every 6 ity of 0.02 % 00:00: (six) [place] nebulizer 00 hours as Medica l solution needed for Branc h Wheezing or Shortness of Breath. HYDROcodone 2015-05 Yes 1{tbl} Take 1 Un bright -acetaminop 2-09 tablet by ity of hen (NORCO) 00:00: mouth [place] 10-325 mg 00 every 4 Medical tablet (four) Branch hours as needed for Pain (scale 1-3), Pain (scale 4-6), Pain (scale 7-10) or Pain unrelieved by non-narcot ic analgesics . zolpidem 2015-05 Yes 5mg Take 1 Univers (AMBIEN) 5 2-09 tablet by ity of mg tablet 00:00: mouth [place] 00 bedtime as Medical needed for Branch Insomnia. albuterol 2015-05 Yes .63mg Use 3 mL Uni vers (ACCUNEB) 06-13 as ity of 0.63 mg/3 00:00: directed [place] mL 00 every 6 Medical nebulizer (six) Branch solution hours as needed for Wheezing. ipratropium 2015-05 Yes .5mg Inhale 2.5 Univers (ATROVENT) 2-09 mL every 6 ity of 0.02 % 00:00: (six) [place] nebulizer 00 hours as Medica l solution needed for Branc h Wheezing or Shortness of Breath. HYDROcodone 2015-05 Yes 1{tbl} Take 1 Un bright -acetaminop 2-09 tablet by ity of hen (NORCO) 00:00: mouth [place] 10-325 mg 00 every 4 Medical tablet (four) Branch hours as needed for Pain (scale 1-3), Pain (scale 4-6), Pain (scale 7-10) or Pain unrelieved by non-narcot ic analgesics . predniSONE 2015-05 2020- No 10mg Take 1 Univ ers (DELTASONE) 2-09 05-26 tablet by it y of 10 mg 00:00: 00:00 mouth [place] tablet 00 :00 daily. Medical Branch NAPROXEN 2009-0 Yes [id number] 1 tab po Univers 500 MG ORAL 1-21 BID ity of TAB 00:00: [place] 00 Medical Branch NAPROXEN Yes [id number] 1 tab po Univers 500 MG ORAL 1-21 BID ity of TAB 00:00: [place] [facility] NAPROXEN Yes [id number] 1 tab po Univers 500 MG ORAL 1-21 BID ity of TAB 00:00: [place] 00 Medical Branch NAPROXEN Yes [id number] 1 tab po Univers 500 MG ORAL 1-21 BID ity of TAB 00:00: [place] 00 Medical Branch BACLOFEN 10 2020- No [id number] 1 tab po Univers MG ORAL TAB 1-21 - TID ity of 00:00: 00:00 [place] 00 :00 Medical Branch Vital Signs Vital Name Observation Time Observation Value Comments Source Systolic blood 2019-09-28 18:55:00 143 mm[Hg] Univer sity of pressure [facility] Diastolic blood 2019-09-28 18:55:00 78 mm[Hg] Unive rsity of pressure [facility] Heart rate 2019-09-28 18:51:00 69 /min Universi ty [facility] Body temperature 2019-09-28 18:51:00 36.94 [facility] Respiratory rate 2019-09-28 18:51:00 20 /min [facility] Body height 2019-09-28 18:51:00 [facility] Body weight 2019-09-28 18:51:00 71.215 kg Universi ty [facility] BMI 2019-09-28 18:51:00 24.59 kg/m2 [facility] Oxygen saturation in 2019-09-28 18:51:00 97 /min [facility] Arterial blood by [facility] Pulse oximetry Branch Systolic blood 2019-09-28 18:55:00 143 mm[Hg] Univer sity of pressure [facility] Diastolic blood 2019-09-28 18:55:00 78 mm[Hg] Unive rsity of pressure [facility] Heart rate 2019-09-28 18:51:00 69 /min Universi ty [facility] Body temperature 2019-09-28 18:51:00 36.94 [facility] Respiratory rate 2019-09-28 18:51:00 20 /min [facility] Body height 2019-09-28 18:51:00 170.2 cm [facility] Body weight 2019-09-28 18:51:00 71.215 kg [facility] BMI 2019-09-28 18:51:00 24.59 kg/m2 [facility] Oxygen saturation in 2019-09-28 18:51:00 97 /min University of Arterial blood by [facility] Pulse oximetry Branch Procedures Procedure Date / Time Performing Clinician Source Performed AUTHORIZATION FOR 2019-10-28 05:01:00 Doctor Unassigned, No [facility] RELEASE OF PHI Name Medical Branch Encounters Start End Encounter Admission Attending Care Care Encounter Source Date/Time Date/Time Type Type Clinicians Facility Department ID 2020-10-11 2020-10-11 Outpatient JEFFREY [facility] [id number] [place] 00:00:00 00:00:00 YASHIRA 561 Method i 2020-09-07 2020-09-09 Outpatient MCKENZIE LANDA [facility] [id number] [place] 00:00:00 00:00:00 888 Method i 2020-09-04 2020-09-04 Outpatient MCKENZIE LANDA [facility] [id number] [place] 00:00:00 00:00:00 645 Method i 2020-08-13 2020-08-13 Emergency E KASSANDRA, MHTW MHTW [id number] MHTW 13:55:00 22:34:00 DEBBY 2020-07-18 2020-07-18 Outpatient MCKENZIE LANDA [facility] [id number] [place] 00:00:00 00:00:00 290 Method i 2020-07-01 2020-07-01 Outpatient GIOVANNY [facility] [id number] [place] 00:00:00 00:00:00 THOMPSON 113 Me thodi 2020-06-10 2020-06-10 Outpatient [facility] [id number] [place] 00:00:00 00:00:[address] 2020-06-06 2020-06-06 Outpatient MCKENZIE LANDA [facility] [id number] [place] 00:00:00 00:00:00 242 Method i 2020-06-06 2020-06-06 Outpatient MCKENZIE LANDA [facility] [id number] [place] 00:00:00 00:00:[address] 2019-10-28 2019-10-28 Orders Doctor REMY [id number] 00:00:00 00:00:00 Only Unassigned, KRISTINA [id number] [facility] [id number] [id number] 2019-10-28 2019-10-28 Orders Doctor REMY [id number] [facility] 00:00:00 00:00:00 Only Unassigned, KRISTINA [id number] ity of [facility] [id number] [place] [id number] [address] 2019-09-29 2019-09-29 Letter REMY Luis [id number] 00:00:00 00:00:00 (Out) Aneatrice KRISTINA [id number] HOSPITAL [id number] [id number] 2019-09-29 2019-09-29 Telephone REMY Luis [id number] 00:00:00 00:00:00 Aneatrice KRISTINA [id number] HOSPITAL [id number] [id number] 2019-09-29 2019-09-29 REMY Ray [id number] [facility] 00:00:00 00:00:00 (Out) Aneatrice KRISTINA [id number] ity of HOSPITAL [id number] [place] [id number] [address] 2019-09-29 2019-09-29 Telephone REMY Luis [id number] Univers 00:00:00 00:00:00 Aneatrice KRISTINA [id number] ity of HOSPITAL [id number] [place] [phone] [place] [address] Branch 2019-09-28 2019-09-28 Urgent Pob1, Acute [facility] 1.2.840.114 [id number] 13:32:46 13:52:46 [facility] [id number] [place] [id number] Professio [id number] nal [address] 2019-09-28 2019-09-28 Urgent Pob1, Acute Care Clinic [facility] 1. [id number] [facility] 13:32:46 13:52:46 Care Cher Husain [facility] 350.1 .[id number] ity of [place] [id number] [place] Professio [id number] Oh dical [facility] 044 [place] [address] 2019-09-28 2019-09-28 Outpatient R [facility] [id number] Univers 13:00:00 13:00:[facility] [id number] [facility] 2019-09-28 2019-09-28 Outpatient R [facility] [id number] [facility] 13:00:00 13:00:00 [facility] 2018-08-20 2018-08-23 Inpatient MCKENZIE LANDA [facility] [id number] [place] [address] 00:00:00 00:00:[address] Results Test Description Test Time Test Comments Results Result Comments Source SARS-CoV-2 (COVID-19) RNA [Presence] in Respiratory sp ecimen by 2020-09-04 18:53:57 ERICA with probe detection Test Item Value Reference Range Interpretation Comme nts SARS-CoV-2 (COVID-19) RNA [Presence] in Respiratory Not detected No t-Detected specimen by ERICA with probe detection (test code = 13042-9) Whether patient is employed in a healthcare setting (test code = 44263-1) Whether the patient has symptoms related to condition of interest (test code = 63321-8) Patient was hospitalized because of this condition (test code = 89298-4) Whether the patient was admitted to intensive care unit (ICU) for condition of interest (test code = 90054-3) Whether patient resides in a congregate care setting (test code = 32933-6) SARS-CoV-2 (COVID-19) RNA [Presence] in Respiratory specimen by ERICA with probe [id number] 13:54:03 Test Item Value Reference Range Interpretation Comments SARS-CoV-2 (COVID-19) RNA Not detected Not-Detected [Presence] in Respiratory specimen by ERICA with probe detection (test code = 90447-8)
--- NOTE | 2021-10-29 13:27 | RAD REPORT ---
EXAM DESCRIPTION: RAD - Chest Single View - 10/29/2021 1:16 pm CLINICAL HISTORY: BLUNT CHEST TRAUMA COMPARISON: Portable July 2020 TECHNIQUE: AP portable chest image was obtained 10/29/2021 1:16 pm . FINDINGS: Fibrotic lung changes are present with chronic atelectasis or scarring in the lower right lung field causing linear opacification. An acute lung parenchymal process is not suspected. Slight fullness of the mediastinum to the right hilum is believed be the affects of dictation. True c hange is not suspected. Heart and vasculature are normal. No measurable pleural effusion and no pneum othorax. No acute bone abnormality seen. Bone assessment is limited on portable imaging. No acute aor tic findings suspected. IMPRESSION: No acute cardiopulmonary process. Chronic fibrotic lung changes are present most notable in the lower right lung field.
--- NOTE | 2021-10-29 13:30 | RAD REPORT ---
EXAM DESCRIPTION: RAD - Ribs Left - 10/29/2021 1:16 pm CLINICAL HISTORY: History of multiple falls, blunt force trauma to the chest COMPARISON: Portable chest same date FINDINGS: No displaced rib fractures seen. No acute nondisplaced fracture confirmed. The patient has numerous old remodeled rib fractures. No aggressive rib lesion. No underlying pneumothorax, effusion , infiltrate or pulmonary contusion. IMPRESSION: Multiple old healed rib fractures seen. No acute rib fracture confirmed. No pneumothorax, pulmonary contusion or acute lung parenchymal process.
[2021-10-29] MEDS ORDERED: HYDROCODONE/APAP 10/325 TAB ONE (13:31)
--- NOTE | 2021-10-29 13:36 | RAD REPORT ---
EXAM DESCRIPTION: RAD - Thoracic Spine Ap/Lat - 10/29/2021 1:17 pm CLINICAL HISTORY: PAIN COMPARISON: Chest Single View dated 10/29/2021; Ribs Left dated 10/29/2021; Chest Pa And Lat (2 Views ) dated 12/15/2019; Lumbar Spine 3 Views dated 10/29/2021 FINDINGS: AP & lateral views of the thoracic spine were obtained. Bones are osteopenic and there is a mild right convex curvature spans the entire length of the thorac ic spine. Upper thoracic vertebral body shows approximately 50% compression deformity T5 vertebral antonino dy. This is new from 2019 but is otherwise of uncertain age. No lytic nor band style component. There is sclerotic change along the superior endplate. No significant encroachment into the central canal seen. Thoracic vertebrae otherwise normal in height. T12 vertebral body is addressed on the lumbar spine re port were the body is better visualized. No disc space narrowing. No paraspinal masses are identified. IMPRESSION: Approximately 50% compression fracture deformity of the T5 vertebral body new from 2019. Age is otherwise insert. Diffuse osteopenic changes throughout the remainder of the thoracic spine from T1-T12. T12 is detaile d on lumbar spine report where it is better visualized.
--- NOTE | 2021-10-29 13:41 | RAD REPORT ---
EXAM DESCRIPTION: RAD - Lumbar Spine 3 Views - 10/29/2021 1:17 pm CLINICAL HISTORY: PAIN COMPARISON: Lumbar Spine 3 Views dated 01/31/2017 FINDINGS: A three-view lumbar spine examination was performed. Right lateral tilt of the upper lumbar spine is present part of a thoraco upper lumbar scoliosis. Bon es are osteopenic. Approximately 20% wedge compression deformity of the L3 body is present. Posterior wall height is preserved with no central canal encroachment. Sclerosis is seen along the superior en dplate of L3. This compression deformity is progressive but not new from 2017. No expansile or lytic component. Approximately 50% wedge compression of the L1 body is seen stable from 2017. Approximately 70% compression fracture deformity of the T12 body is present. No lytic or blastic comp onent. There is slight posterior convex contour of the posterior wall which has also lost height. Thi s is probably not critical central canal encroachment. L2, L4 and L5 vertebrae are normal in height. There is slight retrolisthesis of L4 on L5 with L4-5 di sc space narrowing. This retrolisthesis is stable from prior imaging. No other significant disc space narrowing. Facet joint degenerative changes are present in the lumbar spine most notable L4-S1. No pars defects identified. No significant SI joint abnormality. The pelvis is separately reported. IMPRESSION: Approximately 70% compression fracture deformity the T12 body with slight encroachment i nto the central canal. This is new from 2017 but otherwise unknown age. Approximately 20% wedge compression of the L3 body with posterior wall height preserved. No central c anal encroachment seen. This is progressive but not new from 2017. Stable 50% wedge compression of the L1 body.
--- NOTE | 2021-10-29 13:43 | RAD REPORT ---
EXAM DESCRIPTION: RAD - Pelvis - 10/29/2021 1:16 pm CLINICAL HISTORY: BLUNT TRAUMA COMPARISON: No comparisons TECHNIQUE: AP imaging of the pelvis was obtained. FINDINGS: Bones are osteopenic. Lower lumbar degenerative changes are separately detailed. Sacral al a are intact. SI joint degenerative changes mild. Fracture changes of the left superior and inferior pubic rami a appear to be chronic. The patient has localizing pain, additional plain film imaging or CT imaging could be performed. No other evidence for fracture of the bony pelvis. Mild pubic symphysi s degenerative changes are present. No fracture or acute finding of either proximal femur. No acetabular abnormality. IMPRESSION: No acute fracture confirmed. The fracture changes to the superior and inferior pubic rami on the left appear to be old. Dedicated plain films or CT imaging could be performed if the patient has left rami fracture symptoms.
--- NOTE | 2021-10-29 13:51 | ER ---
Nurse's Notes [facility] Name: Shannan Patel Age: 71 yrs Sex: Female : 1950 Arrival Date: 10/29/2021 Time: 11:47 Bed 16 Private MD: Diagnosis: Fracture of thoracic vertebra-T5, subacute Presentation: 10/29 11:47 Chief complaint: Patient states: pt with hx of sciatica in rt leg and has been having [facility] episodes of falling over the last couple Mo. pt wanting to get MRI. states that she has chronic lower back pain and walks with a cane. Coronavirus screen: Vaccine status: Patient reports receiving the 2nd dose of the covid vaccine. Ebola Screen: Patient negative for fever greater than or equal to 101.5 degrees Fahrenheit, and additional compatible Ebola Virus Disease symptoms Patient denies exposure to infectious person. Patient denies travel to an Ebola-affected area in the 21 days before illness onset. Initial Sepsis Screen: Does the patient meet any 2 criteria? No. Patient's initial sepsis screen is negative. Does the patient have a suspected source of infection? No. Patient's initial sepsis screen is negative. Risk Assessment: Do you want to hurt yourself or someone else? Patient reports no desire to harm self or others. Onset of symptoms was October 29, 2021. 11:47 Method Of Arrival: EMS: [facility] 11:47 Acuity: DEVANTE 3 [facility] Triage Assessment: 11:49 General: Appears in no apparent distress. Behavior is calm, cooperative. [facility] Historical: - Allergies: 11:49 Codeine (Hives); [facility] - Home Meds: 11:49 diclofenac sodium 75 mg Oral TbEC 1 tab 2 times per day [Active]; doxepin 25 mg Oral jh6 cap 1 cap once daily [Active]; [place] 10-325 mg Oral tab 1 tab every 4-6 hours for Pain [Active]; omeprazole 40 mg Oral cpDR 1 cap once daily [Active]; Vimovo 500-20 mg Oral TbID 1 tab 2 times per day [Active]; - PMHx: 11:49 bunions; cervical cancer; COPD; degenerative bone disease; Gastric Reflux; Herniated [facility] disc; ovarian cancer; Pneumonia; sciatica; - Immunization history:: Adult Immunizations up to date. - Social history:: Smoking status: Patient denies any tobacco usage or history of. - Family history:: not pertinent. - Hospitalizations: : No recent hospitalization is reported. Screenin:52 Abuse screen: Denies threats or abuse. Denies injuries from another. Nutritional [facility] screening: No deficits noted. Tuberculosis screening: No symptoms or risk factors identified. Fall Risk Fall in past 12 months (25 points). Ambulatory Aid- Crutches/Cane/Walker (15 pts). Gait- Impaired (20 pts.). Assessment: 11:49 General: see triage note. 6 11:49 Pain: Complains of pain in coccyx Pain radiates to left gluteus maged and left 6 gluteal fold Pain currently is 6 out of 10 on a pain scale. Quality of pain is described as burning, sharp, shooting, numb, Pain began years ago. Is intermittent, Aggravated by fall. Musculoskeletal: Tenderness present in coccyx, left lower back and right lower back. 13:00 Reassessment: No changes from previously documented assessment. Patient and/or family [facility] updated on plan of care and expected duration. Pain level reassessed. Patient is alert, oriented x 3, equal unlabored respirations, skin warm/dry/pink. 14:00 Reassessment: Patient and/or family updated on plan of care and expected duration. Pain [facility] level reassessed. Patient is alert, oriented x 3, equal unlabored respirations, skin warm/dry/pink. Patient states feeling better. Patient states symptoms have improved. 14:00 Pain: Pain currently is 4 out of 10 on a pain scale. [facility] Vital Signs: 11:47 BP 137 / 82; Pulse 80; Resp 17; Temp 97.7(TE); Pulse Ox 98% ; Pain 7/10; jh6 14:00 BP 140 / 77; Pulse 76; Resp 18; Pulse Ox 100% ; Pain 4/10; 6 ED Course: 11:47 Patient arrived in ED. 6 11:47 Kortney Bland, LUZ ELENA is Primary Nurse. 6 11:49 Triage completed. 6 11:52 Avelino Valero MD is Attending Physician. rn 11:52 Arm band placed on left wrist. 6 11:53 Bed in low position. Call light in reach. Side rails up X 1. jh6 13:[address] Patient moved to radiology. jh6 13:17 XRAY Ribs LEFT In Process Unspecified. EDMS 13:17 XRAY Chest (1 view) In Process Unspecified. EDMS 13:17 XRAY Pelvis In Process Unspecified. EDMS 13:17 XRAY Thoracic Spine (Ap/lat) In Process Unspecified. EDMS 13:17 XRAY Lumbar Spine (3 Views) In Process Unspecified. EDMS 14:29 No provider procedures requiring assistance completed. 6 Administered Medications: 13:30 Drug: Hydrocodone-Acetaminophen (10 mg-500 mg) 1 tabs Route: PO; 6 14:31 Follow up: Response: Pain is decreased; RASS: Alert and Calm (0) 6 Medication: 14:28 VIS not applicable for this client. 6 Outcome: 13:50 Discharge ordered by . rn 14:30 Discharged to home via wheelchair. 6 14:30 Condition: good 14:30 Discharge instructions given to patient, Instructed on discharge instructions, follow up and referral plans. Demonstrated understanding of instructions, follow-up care. 14:31 Patient left the ED. 6 Signatures: Dispatcher [employer] EDAvelino Raza MD MD rn Hastedt, Jennifer, RN RN [facility]
--- NOTE | 2021-10-29 13:51 | EDPHYS ---
Physician Documentation [facility] Name: Shannan Patel Age: 71 yrs Sex: Female : 1950 Arrival Date: 10/29/2021 Time: 11:47 Bed 16 Private MD: ED Physician Avelino Valero HPI: 10/29 12:42 This 71 yrs old Female presents to ER via EMS with complaints of Back Pain. rn 12:42 The patient presents with pain that is acute. The symptoms are located in the left low rn back and left mid back. Onset: The symptoms/episode began/occurred today. The pain does not radiate. Associated signs and symptoms: Pertinent negatives: abdominal pain, chest pain, constipation, dysuria, fever, hematuria, incontinence, numbness, tingling, urinary retention. Modifying factors: The patient symptoms are alleviated by remaining still, the patient symptoms are aggravated by any movement. Severity of symptoms: At their worst the symptoms were mild, in the emergency department the symptoms are unchanged. The patient has experienced similar episodes in the past. The patient has not recently seen a physician. Pt reports pain to both sides of mid and lower back for months, told has sciatica, has been falling lately due to right leg giving out. Reports today fell onto left side, reports pain to left ribs and left back. Denies bowel or bladder incontinence or problems. NO head injury.. Historical: - Allergies: 11:49 Codeine (Hives); jh6 - Home Meds: 11:49 diclofenac sodium 75 mg Oral TbEC 1 tab 2 times per day [Active]; doxepin 25 mg Oral jh6 cap 1 cap once daily [Active]; [place] 10-325 mg Oral tab 1 tab every 4-6 hours for Pain [Active]; omeprazole 40 mg Oral cpDR 1 cap once daily [Active]; Vimovo 500-20 mg Oral TbID 1 tab 2 times per day [Active]; - PMHx: 11:49 bunions; cervical cancer; COPD; degenerative bone disease; Gastric Reflux; Herniated jh6 disc; ovarian cancer; Pneumonia; sciatica; - Immunization history:: Adult Immunizations up to date. - Social history:: Smoking status: Patient denies any tobacco usage or history of. - Family history:: not pertinent. - Hospitalizations: : No recent hospitalization is reported. ROS: 12:42 Constitutional: Negative for fever, chills, and weight loss, Eyes: Negative for injury, rn pain, redness, and discharge, Neck: Negative for injury, pain, and swelling, Cardiovascular: Negative for palpitations, and edema, Respiratory: Negative for shortness of breath, cough, wheezing, and pleuritic chest pain, Abdomen/GI: Negative for abdominal pain, nausea, vomiting, diarrhea, and constipation, Back: + back injury and pain : Negative for injury, bleeding, discharge, and swelling, MS/Extremity: Negative for injury and deformity, Skin: Negative for injury, rash, and discoloration, Neuro: Negative for headache, weakness, numbness, tingling, and seizure. Exam: 12:42 Constitutional: This is a well developed, well nourished patient who is awake, alert, rn and in no acute distress. Head/Face: Normocephalic, atraumatic. Neck: NO midline cervical tenderness Chest/axilla: + mild tenderness left lateral chest wall, no crepitus. Cardiovascular: Regular rate and rhythm. No pulse deficits. Respiratory: No increased work of breathing, no retractions or nasal flaring. Abdomen/GI: Soft, non-tender Back: No spinal tenderness. + mild perilumbar and thoracic pain, no swelling or ecchymosis Skin: Warm, dry with normal turgor. Normal color with no rashes, no lesions, and no evidence of cellulitis. MS/ Extremity: Pulses equal, no cyanosis. Neurovascular intact. Full, normal range of motion. Equal circumference. Neuro: Awake and alert, GCS 15, oriented to person, place, time, and situation. Cranial nerves II-XII grossly intact. Motor strength 5/5 in all extremities. Sensory grossly intact. Cerebellar exam normal. Vital Signs: 11:47 BP 137 / 82; Pulse 80; Resp 17; Temp 97.7(TE); Pulse Ox 98% ; Pain 7/10; jh6 14:00 BP 140 / 77; Pulse 76; Resp 18; Pulse Ox 100% ; Pain 4/10; jh6 MDM: 11:52 Patient medically screened. rn 13:49 Differential diagnosis: arthritis, chronic back pain, Fatigue Fracture Osteoarthritis rn vertebral fracture. Data reviewed: vital signs, nurses notes, radiologic studies, plain films, and as a result, I will discharge patient. Counseling: I had a detailed discussion with the patient and/or guardian regarding: the historical points, exam findings, and any diagnostic results supporting the discharge/admit diagnosis, radiology results, the need for outpatient follow up, to return to the emergency department if symptoms worsen or persist or if there are any questions or concerns that arise at home. Response to treatment: the patient's symptoms have mildly improved after treatment, and as a result, I will discharge patient. Special discussion: I discussed with the patient/guardian in detail that at this point there is no indication for admission to the hospital. It is understood, however, that if the symptoms persist or worsen the patient needs to return immediately for re-evaluation. 10/29 11:53 Order name: XRAY Ribs LEFT; Complete Time: 13:47 rn 10/29 11:53 Order name: XRAY Chest (1 view); Complete Time: 13:47 rn 10/29 11:53 Order name: XRAY Pelvis; Complete Time: 13:47 rn 10/29 11:53 Order name: XRAY Thoracic Spine (Ap/lat); Complete Time: 13:47 rn 10/29 11:53 Order name: XRAY Lumbar Spine (3 Views); Complete Time: 13:48 rn Administered Medications: 13:30 Drug: Hydrocodone-Acetaminophen (10 mg-500 mg) 1 tabs Route: PO; jh6 14:31 Follow up: Response: Pain is decreased; RASS: Alert and Calm (0) 6 Disposition Summary: 10/29/21 13:50 Discharge Ordered Location: Home rn Problem: an ongoing problem rn Symptoms: have improved rn Condition: Stable rn Diagnosis - Fracture of thoracic vertebra - T5, subacute rn Followup: rn - With: Private Physician - When: As needed - Reason: Recheck today's complaints, Re-evaluation by your physician Discharge Instructions: - Discharge Summary Sheet rn - Thoracic Spine Fracture rn Forms: - Medication Reconciliation Form rn - Thank You Letter rn - Antibiotic rn shift mgr - Prescription Opioid Use rn Signatures: Dispatcher [employer] EDAvelino Raza MD MD rn Hastedt, Jennifer, RN RN 6 Corrections: (The following items were deleted from the chart) 12:46 12:42 Pt reports pain to both sides of mid and lower back for months, told has rn sciatica, has been falling lately due to right leg giving out. Reports today fell onto left side, reports pain to left ribs and left back. . rn 12:46 12:42 Constitutional: Negative for fever, chills, and weight loss, Eyes: Negative for rn injury, pain, redness, and discharge, Neck: Negative for injury, pain, and swelling, Cardiovascular: Negative for chest pain, palpitations, and edema, Respiratory: Negative for shortness of breath, cough, wheezing, and pleuritic chest pain, Abdomen/GI: Negative for abdominal pain, nausea, vomiting, diarrhea, and constipation, Back: + back injury and pain : Negative for injury, bleeding, discharge, and swelling, MS/Extremity: Negative for injury and deformity, Skin: Negative for injury, rash, and discoloration, Neuro: Negative for headache, weakness, numbness, tingling, and seizure, rn 12:48 12:42 Constitutional: This is a well developed, well nourished patient who is awake, rn alert, and in no acute distress. rn
[2021-10-29 14:36] VITALS: TEMP 97.7
[2021-10-29 14:38] VITALS: BP 140/77; O2SAT 100
== END 2021-10-29 14:31 | disposition home or self-care (01) ==
LOC: ER 11:38
DX: S22.059A Unspecified fracture of T5-T6 vertebra, initial encounter for closed fracture (principal); Z85.41 Personal history of malignant neoplasm of cervix uteri; Z85.43 Personal history of malignant neoplasm of ovary; J44.9 Chronic obstructive pulmonary disease, unspecified; Z88.5 Allergy status to narcotic agent
CPT/HCPCS: 71045; 72070; 72100; 72170; 99284

== ENCOUNTER 2022-01-16 11:31 | Emergency (ER) | payer OTHER ==
--- OUTSIDE RECORDS SUMMARY | 2022-01-16 11:40 | XMS REPORT | Continuity of Care Document ---
:1950 Author Organization [facility] t Address [address] [place] [address] Dr. Pedroza. [address] [place] [address] Care Team Providers Name Role Phone PCP, PATIENT DOES NOT HAVE A Primary Care Physician UnavailEMELY Mancera Attending Clinician Unavailable YASHIRA MURPHY Attending Clinician Unavailable MCKENZIE LANDA Attending Clinician Unavailable MD MCKENZIE LANDA Attending Clinician Unavailable DEBBY CANNON Attending Clinician Unavailable THOMPSON BALTAZAR Attending Clinician Unavailable Doctor Unassigned, [place] Attending Clinician Unavailable Alexi Luis RN Attending Clinician Unavailable [facility] Attending Clinician Unavailable Cher Husain MD Attending Clinician MCKENZIE LANDA Admitting Clinician Unavailable MD MCKENZIE LANDA Admitting Clinician Unavailable Payers Payer Name Policy Type Policy Number Effective Date Expiration Date S [facility] [id number] 2016 00:00:00 Problems Condition Condition Condition Status Onset Resolution Last Treating Co mments Source Name Details Category Date Date Treatment Clinician Date Hernia, Hernia, Disease Active Overview: Meth mercedes hiatal hiatal 2-[address] 00:00: g of this Hospita 00 note l might be different from the original. Added automatic ally from request for surgery [id number] Cervical Cervical Disease Active Unive rs spondylosi spondylosi 5-26 it y of s without s [place] myel[place] myelopathy 00 Me dical Branch Degenerati Degenerati Disease Active U nivers on of on of 5-26 ity of lumbar lumbar 00:00: [place] interverte interverte 00 Me dical bral disc bral disc Bran ch Hiatal Hiatal Disease Active Methodi hernia hernia 4-18 st 00:00: Hospita 00 l Incarcerat Incarcerat Disease Active M ethodi ed ventral ed ventral 4-10 st hernia hernia 00:00: Hospita 00 l Epigastric Epigastric Disease Active Overview : Methodi pain pain 4-[address] 00:00: g of this Hospita 00 note l might be different from the original. Added automatic ally from request for surgery [id number] Spasm of Spasm of Disease Active Unive rs back back 4-03 ity of muscles muscles 00:00: [place] 00 Medical Branch Zenker's Zenker's Disease Active Metho di diverticul diverticul 3-04 st um um 00:00: Hospita 00 l Chronic Chronic Disease Active Univers pain of pain of 5-25 [place] of [place] COPD COPD Disease Active 2015-05 Univers (chronic (chronic 1-28 ity of obstructiv obstructiv [place] Medical pulmonary pulmonary Bran ch disease) disease) Dysuria Dysuria Disease Active Univers 7-25 ity of 00:00: [place] 00 Medical Branch Other, Other, Disease Active Univers mixed, or mixed, or 3-31 ity of unspecifie unspecifie 00:[place] Medical nondepende nondepende Br anch nt drug nt drug abuse, abuse, unspecifie unspecifie d d Depressive Depressive Disease Active Overview : Univers disorder disorder 3-31 ICD10 ity of 00:00: Diagnosis 00 Term Medical Manager Transit Branch Utility Allergies, Adverse Reactions, Alerts Allergy Allergy Status Severity Reaction(s) Onset Inactive Treating Comm ents Source Name Type Date Date Clinician Codeine Propensi Active Rash Methodi ty to 2-19 st adverse 00:00: Hospita reaction 00 l s to drug CODEINE DRUG Active Hives 2008-0 Univers INGREDI 3-30 ity of 00:00: [place] 00 Medical Branch Codeine Propensi Active Hives 2007-0 Univers ty to 3-30 ity of adverse 00:00: [place] reaction 00 Medical s Branch Family History Family Member Diagnosis Comments Start Date Stop Date Source Natural brother Lung cancer [facility] Natural father Lung cancer [facility] Natural mother Lung cancer [facility] Natural sister Lung cancer [facility] Social History Social Habit Start Date Stop Date Quantity Comments Source History of tobacco Cigarette Smoker University of use [facility] Sex Assigned At Universit y of [facility] Exposure to Not sure University of SARS-CoV-2 (event) [facility] History SDOH [facility] Alcohol Std Drinks Hospit al History SDOH [facility] Alcohol Binge Hospital Alcohol intake 2020-10-11 2020-10-11 Current [facility] 00:00:00 00:00:00 non-drinker of Hospital alcohol (finding) History SDOH 2020-09-07 2020-09-07 1 [facility] Alcohol Frequency 00:00:00 00:00:00 Hospita l History SDOH 2020-06-06 2020-06-06 5 [facility] Financial 00:00:00 00:00:00 Hospital History SDOH Food 2020-06-06 2020-06-[address] Worry 00:00:00 00:00:00 Hospital History SDOH Food 2020-06-06 2020-06-[address] Scarcity 00:00:00 00:00:00 Hospital History SDOH 2020-06-06 2020-06-06 2 [facility] Transport Med 00:00:00 00:00:00 Hospital History SDOH 2020-06-06 2020-06-06 2 [facility] Transport Non-Med 00:00:00 00:00:00 Hospita l Cigarettes smoked 2018-06-23 2018-06-[address] current (pack per 00:00:00 00:00:00 Hospita l day) - Reported Cigarette 2018-06-23 2018-06-23 [facility] pack-years 00:00:00 00:00:00 Hospital Tobacco use and 2018-06-23 2018-06-23 Smokeless [facility] exposure 00:00:00 00:00:00 tobacco non-user Hospital Tobacco Comment 2015-10-19 2015-10-19 Smokes only on Unive rsity of 00:00:00 00:00:00 occasion [facility] Smoking Status Start Date Stop Date Source Current some 2019-09-28 00:00:00 [facility] smoker Medical Branch Ex-smoker 2018-06-23 00:00:00 2018-06-23 00:00:00 [facility] Medications Ordered Filled Start Stop Current Ordering Indication Dosage Frequency Signature Comments Components Source Medication Medication Date Date Medication? Clinician (SIG) Name Name HYDROcodone Yes 1{tbl} Q6H Take 1 Me thodi -acetaminop 6-[address] hen (NORCO) 12:36: mouth Hospi ta 10-325 mg 48 every 6 l per tablet (six) hours as needed for moderate pain. meloxicam Yes 7.5mg QD Take 7.5 Met hodi (MOBIC) 7.5 6-[address] mg tablet 12:36: mouth Hospita 48 daily. l traMADol Yes 50mg Q.[id number] Take 50 mg Methodi (ULTRAM) 50 6-09 [id number] mouth [address] mg tablet 12:36: 3D (three) Hospi ta 48 times a l day. methocarbam Yes 500mg Q.25D Take 500 Methodi oL 6-[address] (ROBAXIN) 12:36: mouth 4 Hospi ta 500 MG 48 (four) l tablet times a day. lidocaine [address] 1 Met hodi % adhesive 5-[address] patch,medic 00:00: the skin Ho spita ated 00 daily. l Remove and discard patch within 12 hours or as directed by physician. Trelegy 2019-05 Yes Methodi Ellipta 2-15 st 100-62.5-25 00:00: Hospit a mcg blister 00 l with device powder for inhalation pregabalin 2019-05 Yes 100mg Take 100 Me thodi (LYRICA) 2-[address] 100 MG 00:00: mouth. Hospita capsule 00 l fluticasone 2020- No 1{puff} Inhale 1 Univers -salmeterol 5-26 05-26 Puff as ity of (ADVAIR) 19:12: 00:00 needed. [place] [address] 10 :00 Medical mcg/dose Branch inhalation disk traMADOL 2020- No 50mg Take 50 mg Un bright (ULTRAM) 50 5-26 05-26 by mouth ity of mg tablet 19:12: 00:00 every 4 [place] 10 :00 (four) Medical hours as Branch needed. cyclobenzap 2019-0 Yes cyclobenza Univers rine 10 mg 5-26 heriberto 10 ity o f tablet 19:12: mg tablet [place] [address] Medical Branch naloxone 2020-0 Yes Narcan 4 Unive rs (NARCAN) 4 5-26 mg/actuati ity of mg/actuatio 19:12: [place] nasal [place] 05 spray Medical Branch meloxicam 2019-0 Yes Mobic 7.5 Uni vers (MOBIC) 7.5 5-26 mg tablet ity of mg tablet 19:12: Take 1 [place] 05 tablet Medical every day Branch by oral route as directed for 7 days. fluticasone 2019-0 Yes Trelegy Uni vers -umeclidin- 5-26 Ellipta ity o f vilanter 19:12: 100 [place] 100-62.5-25 05 mcg-62.5 Medi ann-marie mcg DsDv mcg-25 mcg Branc h powder for inhalation cyclobenzap 2019-0 Yes cyclobenza Univers rine 10 mg 5-26 heriberto 10 ity o f tablet 19:12: mg tablet [address] naloxone 2020-0 Yes Narcan 4 Unive rs (NARCAN) 4 5-26 mg/actuati ity of mg/actuatio 19:12: [place] nasal [place] 05 spray Medical Branch meloxicam 2019-0 Yes [...] mcg Branc h powder for inhalation cyclobenzap 2019-0 Yes cyclobenza Univers rine 10 mg 5-26 heriberto 10 ity o f tablet 19:12: mg tablet [place] 05 Medical Branch naloxone 2020-0 Yes Narcan 4 Unive rs (NARCAN) 4 5-26 mg/actuati ity of mg/actuatio 19:12: [place] nasal [place] 05 spray Medical Branch meloxicam 2020-0 Yes [...] ity o f tablet 19:12: mg tablet [place] 05 Medical Branch naloxone 2020-0 Yes Narcan 4 Unive rs (NARCAN) 4 5-26 mg/actuati ity of mg/actuatio 19:12: [place] nasal [place] 05 spray Medical Branch meloxicam 2019-0 Yes Mobic 7.5 Uni vers (MOBIC) 7.5 5-26 mg tablet ity of mg tablet 19:12: Take 1 [place] 05 tablet Medical every day Branch by oral route as directed for 7 days. fluticasone 2019-0 Yes Trelegy Uni vers -umeclidin- 5-26 Ellipta ity o f vilanter 19:12: 100 [place] 100-62.5-25 05 mcg-62.5 Medi ann-marie mcg DsDv mcg-25 mcg Branc h powder for inhalation doxycycline 2019-0 2020- No [id number] 100mg Take 1 Univers hyclate 100 5-26 06-03 tablet by it y of mg tablet 00:00: 04:59 mouth 2 [place] 00 :[place] (two) Medical times Branch daily for 7 days. doxycycline 2020-0 2020- No [id number] 100mg Take 1 Univers hyclate 100 5-26 06-03 tablet by it y of mg tablet 00:00: 04:59 mouth 2 [place] 00 :[place] (two) Medical times Branch daily for 7 days. doxycycline 2020-0 2020- No [id number] 100mg Take 1 Univers hyclate 100 5-26 06-03 tablet by it y of mg tablet 00:00: 04:59 mouth 2 [place] 00 :[place] (two) Medical times Branch daily for 7 days. methocarbam 2020-0 Yes TK 1 T PO U nivers ol 750 mg 5-21 BID FOR 7 ity o f tablet 00:00: DAYS Medical Branch methocarbam 2020-0 Yes TK 1 T PO U nivers ol 750 mg 5-21 BID FOR 7 ity o f tablet 00:00: Medical Branch methocarbam 2020-0 Yes TK 1 T PO U nivers ol 750 mg 5-21 BID FOR 7 ity o f tablet 00:00: DAYS Medical Branch methocarbam 2020-0 Yes TK 1 T PO U nivers ol 750 mg 5-21 BID FOR 7 ity o f tablet 00:00: Medical Branch omeprazole 2018-0 Yes 40mg QD Take 40 mg M ethodi (PriLOSEC) 2-[address] 40 MG 00:00: daily. Hospita capsule 00 l albuterol-i Yes 1{puff} Inhale 1 Univers pratropium 7-02 Puff 4 ity of 20-100 00:00: (four) [place] mcg/actuati 00 times Medical on inhaler daily. Branch traMADOL Yes 50mg Take 1 Univers (ULTRAM) 50 7-02 tablet by ity of mg tablet 00:00: mouth 00 every 6 Medical (six) Branch hours as needed for Pain (scale 1-3). albuterol-i Yes 1{puff} Inhale 1 Univers pratropium 7-02 Puff 4 ity of 20-100 00:00: (four) [place] mcg/actuati 00 times Medical on inhaler daily. Branch traMADOL Yes 50mg Take 1 Univers (ULTRAM) 50 7-02 tablet by ity of mg tablet 00:00: mouth [place] 00 every 6 Medical (six) Branch hours as needed for Pain (scale 1-3). albuterol-i 2016-0 Yes 1{puff} Inhale 1 Univers pratropium 7-02 Puff 4 ity of 20-100 00:00: (four) [place] mcg/actuati 00 times Medical on inhaler daily. Branch traMADOL Yes 50mg Take 1 Univers (ULTRAM) 50 7-02 tablet by ity of mg tablet 00:00: mouth [place] 00 every 6 Medical (six) Branch hours as needed for Pain (scale 1-3). albuterol-i Yes 1{puff} Inhale 1 Univers pratropium 7-02 Puff 4 ity of 20-100 00:00: (four) [place] mcg/actuati 00 times Medical on inhaler daily. Branch traMADOL Yes 50mg Take 1 Univers (ULTRAM) 50 7-02 tablet by ity of mg tablet 00:00: mouth [place] 00 every 6 Medical (six) Branch hours as needed for Pain (scale 1-3). ipratropium Yes 1{puff} QD Inhale 1 Methodi -albuterol 7-[address] (COMBIVENT 00:00: morning. Hos tu RESPIMAT) 00 l 20-100 mcg/actuati on mist inhaler Budesonide 2020- No 1{puff} Inhale 1 Univers (PULMICORT 7-02 05-26 Puff ity of FLEXHALER) 00:00: 00:00 [place]. [place] 90 00 :00 Medical mcg/actuati Branch on aerosol powder diclofenac Yes 75mg Take 1 Unive rs 75 mg EC 5-26 tablet by ity of tablet 00:00: mouth 2 [place] (two) Medical times Branch daily with meals. diclofenac Yes 75mg Take 1 Unive rs 75 mg EC 5-26 tablet by ity of tablet 00:00: mouth 2 [place] (two) Medical times Branch daily with meals. diclofenac Yes 75mg Take 1 Unive rs 75 mg EC 5-26 tablet by ity of tablet 00:00: mouth 2 [place] (two) Medical times Branch daily with meals. diclofenac 0 Yes 75mg Take 1 Unive rs 75 [...] ORAL TAB 2-09 Qam ity of 19:55: [place] 46 Medical Branch omeprazole 2015-05 Yes 40mg Take 40 mg U nivers (PRILOSEC) 2-09 by mouth ity o f 40 mg 19:55: daily. [address] BUSPIRONE 2015-05 Yes 1 tab po Univ ers 10 MG ORAL 2-09 TID ity of TAB 19:55: [address] CELEXA 20 2015-05 Yes 2 tabs po Uni vers MG ORAL TAB 2-09 Qam ity of 19:55: [address] omeprazole 2015-05 Yes 40mg Take 40 mg U nivers (PRILOSEC) 2-09 by mouth ity o f 40 mg 19:55: daily. [address] BUSPIRONE 2015-05 Yes 1 tab po Univ ers 10 MG ORAL 2-09 TID ity of TAB 19:55: [address] CELEXA 20 2015-05 Yes 2 tabs po Uni vers MG ORAL TAB 2-09 Qam ity of 19:55: [address] omeprazole 2015-05 Yes 40mg Take 40 mg U nivers (PRILOSEC) 2-09 by mouth ity o f 40 mg 19:55: daily. [address] BUSPIRONE 2015-05 Yes 1 tab po Univ ers 10 MG ORAL 2-09 TID ity of TAB 19:55: [address] CELEXA 20 2015-05 Yes 2 tabs po Uni vers MG ORAL TAB 2-09 Qam ity of 19:55: [address] omeprazole 2015-05 Yes 40mg Take 40 mg U nivers (PRILOSEC) 2-09 by mouth ity o f 40 mg 19:55: daily. [address] zolpidem 2015-05 Yes 5mg Take 1 Univers (AMBIEN) 5 06-13 tablet by ity of mg tablet 00:00: [...] :00 daily. Medical Branch NAPROXEN 2009-0 Yes [id number] 1 tab po Univers 500 MG ORAL 1-21 BID ity of TAB 00:00: [place] 00 Medical Branch NAPROXEN Yes [id number] 1 tab po Univers 500 MG ORAL 1-21 BID ity of TAB 00:00: [place] [facility] NAPROXEN Yes [id number] 1 tab po Univers 500 MG ORAL 1-21 BID ity of TAB 00:00: Medical Branch NAPROXEN Yes [id number] 1 tab po Univers 500 MG ORAL 1-21 BID ity of TAB 00:00: Medical Branch BACLOFEN 10 2020- No [id number] 1 tab po Univers MG ORAL TAB -21 - TID ity of 00:00: 00:00 [place] 00 :00 Medical Branch Immunizations Ordered Immunization Filled Immunization Date Status Commen ts Source Name Name PFIZER COVID-19 MRNA 2020-07-01 Completed Meth odist VACCINATION 00:00:00 Hospital PFIZER COVID-19 MRNA 2020-06-10 Completed Meth odist VACCINATION 00:00:00 Hospital Vital Signs Vital Name Observation Time Observation Value Comments Source Systolic blood 2019-09-28 18:55:00 143 mm[Hg] Univer sity of [facility] Diastolic blood 2019-09-28 18:55:00 78 mm[Hg] Unive rsity of [facility] Heart rate 2019-09-28 18:51:00 69 /min [facility] Body temperature 2019-09-28 18:51:00 36.94 Kathrin [facility] Respiratory rate 2019-09-28 18:51:00 20 /min [facility] Body height 2019-09-28 18:51:00 170.2 cm [facility] Body weight 2019-09-28 18:51:00 71.215 kg [facility] BMI 2019-09-28 18:51:00 24.59 kg/m2 [facility] Oxygen saturation in 2019-09-28 18:51:00 97 /min [facility] Arterial blood by [facility] Pulse oximetry Branch Systolic blood 2019-09-28 18:55:00 143 mm[Hg] Univer sity of pressure [facility] Diastolic blood 2019-09-28 18:55:00 78 mm[Hg] Unive rsity of [facility] Heart rate 2019-09-28 18:51:00 69 /min [facility] Body temperature 2019-09-28 18:51:00 36.94 Kathrin [facility] Respiratory rate 2019-09-28 18:51:00 20 /min [facility] Body height 2019-09-28 18:51:00 170.2 cm [facility] Body weight 2019-09-28 18:51:00 71.215 kg [facility] BMI 2019-09-28 18:51:00 24.59 kg/m2 [facility] Oxygen saturation in 2019-09-28 18:51:00 97 /min [facility] Arterial blood by [facility] Pulse oximetry Branch Procedures Procedure Date / Time Performing Clinician Source Performed AUTHORIZATION FOR 2019-10-28 05:01:00 Doctor Unassigned, No Univ [facility] RELEASE OF PHI Name [facility] Plan of Care Planned Activity Planned Date Details Comments Source Future Scheduled 2022-01-02 BREAST CANCER [facility] Test 13:34:20 SCREENING [code = BREAST CANCER SCREENING] Future Scheduled 2022-01-02 COLONOSCOPY SCREENING [facility] Test 13:34:20 [code = COLONOSCOPY SCREENING] Future Scheduled 2022-01-02 HEPATITIS B VACCINES [facility] Test 13:34:20 (1 of 3 - Risk 3-dose series) [code = HEPATITIS B VACCINES (1 of 3 - Risk 3-dose series)] Future Scheduled 2022-01-02 SHINGLES VACCINES (2 [facility] Test 13:34:20 of 2) [code = SHINGLES VACCINES (2 of 2)] Future Scheduled 2022-01-02 65+ [facility]OC[facility]CCAL [facility] Test 13:34:20 VACCINE (3 - PPSV23 or PCV20) [code = 65+ PNEUMOCOCCAL VACCINE (3 - PPSV23 or PCV20)] Future Scheduled 2022-01-02 COVID-19 VACCINE (3 - [facility] Test 13:34:20 Booster for Pfizer series) [code = COVID-19 VACCINE (3 - Booster for Pfizer series)] Future Scheduled 2022-01-02 INFLUENZA VACCINE Method [facility] Test 13:34:20 [code = INFLUENZA VACCINE] Encounters Start End Encounter Admission Attending Care Care Encounter Source Date/Time Date/Time Type Type Clinicians Facility Department ID 2022-02-212022-02-21 Outpatient R TERRY [facility] [id number] Univers 12:45:00 12:45:00 , EMELY [id number] ity [facility] 2020-10-11 2020-10-11 Outpatient JEFFREY, [facility] [id number] [place] 00:00:00 00:00:00 YASHIRA [address] 2020-09-07 2020-09-09 Outpatient MCKENZIE LANDA [facility] [id number] [place] 00:00:00 00:00:[address] 2020-09-04 2020-09-04 Outpatient MCKENZIE LANDA [facility] [id number] [place] 00:00:00 00:00:[address] 2020-08-13 2020-08-13 Emergency E KASSANDRA, M[facility]W [facility] [id number] [facility] 13:55:00 22:34:00 DEBBY 2020-07-18 2020-07-18 Outpatient MCKENZIE LANDA [facility] [id number] [place] 00:00:00 00:00:[address] 2020-07-01 2020-07-01 Outpatient GIOVANNY, [facility] [id number] [place] 00:00:00 00:00:00 GUYER 113 Me thodi 2020-06-10 2020-06-10 Outpatient [facility] [id number] [place] 00:00:00 00:00:[address] 2020-06-06 2020-06-06 Outpatient MCKENZIE LANDA [facility] [id number] [place] 00:00:00 00:00:[address] 2020-06-06 2020-06-06 Outpatient MCKENZIE LANDA [facility] [id number] [place] 00:00:00 00:00:[address] 2019-10-28 2019-10-28 Orders Doctor ALBERTO [id number] 00:00:00 00:00:00 Only Unassigned, [facility]ST[id number] [facility] [id number] 2019-10-28 2019-10-28 Orders Doctor ALBERTO [id number] [place] [address] 00:00:00 00:00:00 Only Unassigned, KRISTINA [id number] ity of [place] [facility] [id number] [place] [phone] [facility] 009 [place] 2019-09-29 2019-09-29 REMY Ray [id number] 00:00:00 00:00:00 (Out) Aneatrice KRISTINA [id number] HOSPITAL [id number] [id number] 2019-09-29 2019-09-29 Telephone REMY Luis [id number] 00:00:00 00:00:00 Aneatrice KRISTINA [id number] HOSPITAL [id number] [id number] 2019-09-29 2019-09-29 Letter REMY Luis [id number] [facility] 00:00:00 00:00:00 (Out) Aneatrice KRISTINA [id number] ity of HOSPITAL [id number] [place] [phone] [facility] 019 [place] 2019-09-29 2019-09-29 Telephone REMY Luis [id number] [facility] 00:00:00 00:00:00 Aneatrice KRISTINA [id number] ity of HOSPITAL [id number] [place] [id number] [address] 2019-09-28 2019-09-28 Urgent Pob1, Acute [facility] [id number] 13:32:46 13:52:46 [facility] [id number] [place] [id number] Professio [id number] nal [facility] Office [address] 2019-09-28 2019-09-28 Urgent Pob1, Acute Care Clinic [facility] 1. [id number] [facility] 13:32:46 13:52:46 [facility] Cher Husain [facility] 350.1 .13.10 ity of [place] [id number] [place] Professio [phone] [facility] [address] Office [facility] One 2019-09-28 2019-09-[address] [facility] [id number] Univers 13:00:00 13:00:00 [id number] [facility] 2019-09-28 2019-09-[address] [facility] [id number] [facility] 13:00:00 13:00:00 [facility] 2018-08-20 2018-08-23 Inpatient MCKENZIE LANDA [facility] [id number] [place] [address] 00:00:00 00:00:[address] Results Test Description Test Time Test Comments Results Result Comments Source SARS-CoV-2 (COVID-19) RNA [Presence] in Respiratory sp ecimen by 2020-09-04 18:53:57 ERICA with probe detection Test Item Value Reference Range Interpretation Comme nts SARS-CoV-2 (COVID-19) RNA [Presence] in Respiratory Not detected No t-Detected specimen by ERICA with probe detection (test code = 98533-9) Whether patient is employed in a healthcare setting (test code = 90193-3) Whether the patient has symptoms related to condition of interest (test code = 23819-7) Patient was hospitalized because of this condition (test code = 74584-3) Whether the patient was admitted to intensive care unit (ICU) for condition of interest (test code = 89687-8) Whether patient resides in a congregate care setting (test code = 23196-0) SARS-CoV-2 (COVID-19) RNA [Presence] in Respiratory specimen by ERICA with probe [id number] 13:54:03 Test Item Value Reference Range Interpretation Comments SARS-CoV-2 (COVID-19) RNA Not detected Not-Detected [Presence] in Respiratory specimen by ERICA with probe detection (test code = 30745-8)
[2022-01-16 14:49] LABS: Absolute Lymphocytes (CBC) 1.6 K/uL (0.7-4.9); Hematocrit 42.4 % (36.0-45.0); Lymphocytes % 21.6 % (15.3-44.8); MCV 85.4 fL (80-100); RBC Red Blood Cell Count 4.97 M/uL (3.86-4.86)
[2022-01-16] MEDS ORDERED: IPRATROPIUM BROM 0.5MG/2.5ML ONE (14:50)
[2022-01-16] MEDS ORDERED: ALBUTEROL 2.5 MG/3 ML NEB SOL ONE (14:50)
[2022-01-16 15:24] LABS: Albumin 3.4 g/dL (3.4-5.0); Bilirubin Total 0.3 mg/dL (0.2-1.0); Protein, Total 6.5 g/dL (6.4-8.2)
[2022-01-16 15:26] LABS: Potassium 3.7 mmol/L (3.5-5.1)
--- NOTE | 2022-01-16 15:56 | ER ---
Nurse's Notes [facility] Name: Shannan Patel Age: 71 yrs Sex: Female : 1950 Arrival Date: 01/16/2022 Time: 11:39 Bed 20 Private MD: Husam Valente E Diagnosis: Rash and other nonspecific skin eruption;COPD/ Chronic obstructive pulmonary disease with (acute) exacerbation Presentation: 01/16 12:55 Chief complaint: Patient states: SOB for the past 2 days, rash for the past 6 months. tp1 Hx COPD. Denies use of home O2 therapy. Coronavirus screen: Vaccine status: Patient reports receiving the 2nd dose of the covid vaccine. Ebola Screen: Patient negative for fever greater than or equal to 101.5 degrees Fahrenheit, and additional compatible Ebola Virus Disease symptoms Patient denies exposure to infectious person. Patient denies travel to an Ebola-affected area in the 21 days before illness onset. Initial Sepsis Screen: Does the patient meet any 2 criteria? No. Patient's initial sepsis screen is negative. Does the patient have a suspected source of infection? No. Patient's initial sepsis screen is negative. Risk Assessment: Do you want to hurt yourself or someone else? Patient reports no desire to harm self or others. Onset of symptoms was January 14, 2022. 12:55 Method Of Arrival: Wheelchair tp1 12:55 Acuity: DEVANTE 3 tp1 Triage Assessment: 12:58 General: Appears in no apparent distress. comfortable, Behavior is calm, cooperative. tp1 Pain: Complains of pain in back Pain radiates to neck Pain currently is 10 out of 10 on a pain scale. Quality of pain is described as sharp. Neuro: Level of Consciousness is awake, alert, obeys commands, Oriented to person, place, time, situation. Cardiovascular: Patient's skin is warm and dry. Respiratory: Reports shortness of breath Airway is patent Respiratory effort is even, unlabored, Onset: The symptoms/episode began/occurred 2 days ago , the patient has mild shortness of breath. Historical: - Allergies: 12:58 Codeine (Hives); tp1 - Home Meds: 12:58 omeprazole 40 mg Oral cpDR 1 cap once daily [Active]; Amitriptyline Oral [Active]; tp1 14:44 diclofenac sodium 75 mg Oral TbEC 1 tab 2 times per day [Active]; doxepin 25 mg Oral ph cap 1 cap once daily [Active]; Republic 10-325 mg Oral tab 1 tab every 4-6 hours for Pain [Active]; Vimovo 500-20 mg Oral TbID 1 tab 2 times per day [Active]; - PMHx: 12:58 COPD; sciatica; Pneumonia; ovarian cancer; Herniated disc; Gastric Reflux; degenerative tp1 bone disease; cervical cancer; bunions; - PSHx: 12:58 hysterectomy; back surgery; tp1 - Immunization history:: Client reports receiving the 2nd dose of the Covid vaccine. - Social history:: Smoking status: Patient reports the use of cigarette tobacco products, denies chronic smoking, but will smoke occasionally. Screenin:43 Abuse screen: Denies threats or abuse. Denies injuries from another. Nutritional ph screening: No deficits noted. Tuberculosis screening: No symptoms or risk factors identified. Fall Risk None identified. Assessment: 14:44 General: Appears in no apparent distress. comfortable, Behavior is calm, cooperative, ph appropriate for age, Denies fever. Pain: Denies pain. Neuro: Level of Consciousness is awake, alert, obeys commands, Oriented to person, place, time, situation. Cardiovascular: Reports shortness of breath, Denies chest pain, Capillary refill < 3 seconds in bilateral fingers Patient's skin is warm and dry. Respiratory: Reports shortness of breath at rest Airway is patent Respiratory effort is even, unlabored. GI: No signs and/or symptoms were reported involving the gastrointestinal system. Derm: Skin is healthy with good turgor, Skin is pink, warm \T\ dry. Rash noted that is itchy, red, on right arm, left arm, right leg and left leg Reports itching. 15:30 Reassessment: Pt ambulated, with assistance, to restroom and back to ER Room 20. jl7 Reports chronic back pain, no new discomfort. 15:45 Reassessment: JOSE R Avila at bedside discussing results and POC. jl7 16:29 Reassessment: Patient appears in no apparent distress at this time. Patient and/or ph family updated on plan of care and expected duration. Pain level reassessed. Patient is alert, oriented x 3, equal unlabored respirations, skin warm/dry/pink. Pt d/c home w/ family. Vital Signs: 12:55 BP 125 / 81; Pulse 85; Resp 20; Temp 97.9(TE); Pulse Ox 95% on R/A; Weight 77.11 kg; tp1 Height 5 ft. 4 in. (162.56 cm); 15:30 BP 102 / 72; Pulse 91; Resp 18 S; Pulse Ox 100% on R/A; jl7 12:55 Body Mass Index 29.18 (77.11 kg, 162.56 cm) tp1 ED Course: 11:39 Patient arrived in ED. mr 11:39 Husam Valente MD is Private Physician. mr 12:58 Triage completed. tp1 13:02 Arm band placed on. tp1 13:41 Margarita Ceron FNP-C is [facility]. kb 13:41 Avelino Valero MD is Attending Physician. kb 14:35 Missed attempt(s): 22 gauge in right antecubital area. Bleeding controlled, band aid ph applied, catheter tip intact. 14:43 Initial lab(s) drawn, by me, sent to lab. Inserted saline lock: 24 gauge in left hand, ph using aseptic technique. Blood collected. 14:44 Patient has correct armband on for positive identification. Bed in low position. Call ph light in reach. Side rails up X 1. Pulse ox on. NIBP on. Door closed. Noise minimized. Warm blanket given. 15:00 Dewey Avitia, RN is Primary Nurse. jl7 16:28 No provider procedures requiring assistance completed. IV discontinued, intact, ph bleeding controlled, No redness/swelling at site. Pressure dressing applied. Administered Medications: 14:46 Drug: Albuterol 2.5 mg Route: Inhalation; ph 15:00 Follow up: Response: No adverse reaction jl7 14:46 Drug: AtroVENT (ipratropium) Aerosol 0.5 mg Route: Inhalation; ph 15:00 Follow up: Response: No adverse reaction jl7 Medication: 14:44 VIS not applicable for this client. ph Outcome: 15:55 Discharge ordered by . kb 16:29 Discharged to home via wheelchair, with family. ph 16:29 Condition: good 16:29 Discharge instructions given to patient, family, Instructed on discharge instructions, follow up and referral plans. medication usage, Demonstrated understanding of instructions, follow-up care, medications, Prescriptions given X 2. 16:29 Patient left the ED. ph Signatures: Margarita Ceron, JAZMIN LEYVAP-Jayde Castañeda Anayeli mr Frances Garcia, RN RN ph Dewey Avitia RN RN jl7 April Cagle RN RN tp1
--- NOTE | 2022-01-16 15:56 | EDPHYS ---
Physician Documentation [facility] Name: Shannan Patel Age: 71 yrs Sex: Female : 1950 Arrival Date: 01/16/2022 Time: 11:39 Bed 20 Private MD: Husam Valente E ED Physician Avelino Valero HPI: 01/17 00:03 This 71 yrs old Female presents to ER via Wheelchair with complaints of Shortness Of kb Breath. 00:03 The patient's rash thought to be caused by an unknown cause. The rash is located on the kb right arm and left arm. The rash can be described as erythematous. Onset: The symptoms/episode began/occurred 6 month(s) ago. Associated signs and symptoms: Pertinent positives: itching. Severity of symptoms: At their worst the symptoms were moderate in the emergency department the symptoms are unchanged. The patient has not experienced similar symptoms in the past. The patient has been recently seen by a physician:. Patient reports itchy rash to bilateral upper extremities that started 6 months ago. Has tried multiple different medications prescribed by PCP with no relief. States the itching keeps her up at night. Reports history of cirrhosis. Also reports COPD history and she has had shortness of breath for 2 days. States she recently had back surgery and has pain from that as well.. Historical: - Allergies: 01/16 12:58 Codeine (Hives); tp1 - Home Meds: 12:58 omeprazole 40 mg Oral cpDR 1 cap once daily [Active]; Amitriptyline Oral [Active]; tp1 14:44 diclofenac sodium 75 mg Oral TbEC 1 tab 2 times per day [Active]; doxepin 25 mg Oral ph cap 1 cap once daily [Active]; Seymour 10-325 mg Oral tab 1 tab every 4-6 hours for Pain [Active]; Vimovo 500-20 mg Oral TbID 1 tab 2 times per day [Active]; - PMHx: 12:58 COPD; sciatica; Pneumonia; ovarian cancer; Herniated disc; Gastric Reflux; degenerative tp1 bone disease; cervical cancer; bunions; - PSHx: 12:58 hysterectomy; back surgery; tp1 - Immunization history:: Client reports receiving the 2nd dose of the Covid vaccine. - Social history:: Smoking status: Patient reports the use of cigarette tobacco products, denies chronic smoking, but will smoke occasionally. ROS: 01/17 00:02 Constitutional: Negative for fever, chills, and weight loss. kb Respiratory: Positive for shortness of breath, Negative for cough, dyspnea on exertion, hemoptysis, orthopnea, pleurisy, sputum production, wheezing. Skin: Positive for rash, of the right arm and left arm. All other systems are negative. Exam: 00:02 Constitutional: This is a well developed, well nourished patient who is awake, alert, kb and in no acute distress. Head/Face: Normocephalic, atraumatic. ENT: Moist Mucous membranes Cardiovascular: Regular rate and rhythm with a normal S1 and S2. No gallops, murmurs, or rubs. No pulse deficits. Respiratory: Respirations even and unlabored. No increased work of breathing. Talking in full sentences Abdomen/GI: Soft, non-tender. No distention MS/ Extremity: Pulses equal, no cyanosis. Neurovascular intact. Full, normal range of motion. Neuro: Awake and alert, GCS 15, oriented to person, place, time, and situation. Moves all extremities. Normal gait. Psych: Awake, alert, with orientation to person, place and time. Behavior, mood, and affect are within normal limits. 00:02 Skin: rash a mild rash is noted, rash can be described as Petechiae, on the right arm and left arm. Vital Signs: 01/16 12:55 BP 125 / 81; Pulse 85; Resp 20; Temp 97.9(TE); Pulse Ox 95% on R/A; Weight 77.11 kg; tp1 Height 5 ft. 4 in. (162.56 cm); 15:30 BP 102 / 72; Pulse 91; Resp 18 S; Pulse Ox 100% on R/A; jl7 12:55 Body Mass Index 29.18 (77.11 kg, 162.56 cm) tp1 MDM: 13:42 Patient medically screened. kb 01/17 00:01 Data reviewed: vital signs, nurses notes. Data interpreted: Pulse oximetry: on room air kb is 100 %. Interpretation: normal. 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 00:03 ED course: Liver enzymes, platelets and clotting times are within normal limits. kb Patient has had this rash for 6+ months. He has tried 5 different medications prescribed by PCP. Patient educated to follow-up with dermatology.. 01/16 13:53 Order name: CBC with Diff; Complete Time: 14:53 kb 01/16 13:53 Order name: CMP; Complete Time: 15:27 kb 01/16 13:53 Order name: Protime (+inr); Complete Time: 15:24 kb 01/16 13:53 Order name: Ptt, Activated; Complete Time: 15:24 kb 01/16 13:53 Order name: IV Saline Lock; Complete Time: 14:39 kb 01/16 13:53 Order name: Labs collected and sent; Complete Time: 14:39 kb 01/16 14:51 Order name: Labs - recollect needed: recollect green and blue top; Complete Time: 15:17 bd Administered Medications: 01/16 14:46 Drug: Albuterol 2.5 mg Route: Inhalation; ph 15:00 Follow up: Response: No adverse reaction jl7 14:46 Drug: AtroVENT (ipratropium) Aerosol 0.5 mg Route: Inhalation; ph 15:00 Follow up: Response: No adverse reaction jl7 Disposition Summary: 01/16/22 15:55 Discharge Ordered Location: Home kb Condition: Stable kb Diagnosis - Rash and other nonspecific skin eruption kb - COPD/ Chronic obstructive pulmonary disease with (acute) exacerbation kb Followup: kb - With: Emergency Department - When: As needed - Reason: Worsening of condition Followup: kb - With: Private Physician - When: 2 - 3 days - Reason: Recheck today's complaints, Continuance of care, Re-evaluation by your physician Discharge Instructions: - Discharge Summary Sheet kb - Rash, Adult, [id number] kb - Chronic Obstructive Pulmonary Disease Exacerbation, [id number] kb Forms: - Medication Reconciliation Form kb - Thank You Letter kb - Antibiotic Education kb - Prescription Opioid Use kb Prescriptions: - Hydroxyzine HCl 25 mg Oral Tablet - take 1 tablet by ORAL route every 6 hours As needed; 12 tablet; Refills: 0, kb Product Selection Permitted - Diclofenac Sodium 75 mg Oral tablet,delayed release (DR/EC) - take 1 tablet by ORAL route 2 times per day As needed; 30 tablet; Refills: 0, kb Product Selection Permitted Addendum: 01/17/2022 20:10 Co-signature as Attending Physician, Avelino Valero MD. r n Signatures: Dispatcher [employer] EDMargarita Mccauley, SENIOR MEDICAL DIRECTOR-C SENIOR MEDICAL DIRECTOR-Ckb Luz Rasheed Roman, MD MD rn Frances Garcia RN RN [facility] RN RN tp1 Dewey Avitia RN jl7
[2022-01-17 05:37] VITALS: TEMP 97.9
[2022-01-17 05:39] VITALS: BP 102/72; O2SAT 100
== END 2022-01-16 16:29 | disposition home or self-care (01) ==
LOC: ER 11:31
DX: J44.1 Chronic obstructive pulmonary disease with (acute) exacerbation (principal); R21 Rash and other nonspecific skin eruption; F17.210 Nicotine dependence, cigarettes, uncomplicated; Z88.5 Allergy status to narcotic agent
CPT/HCPCS: 36415; 80053; 85025; 85610; 85730; 99284

== ENCOUNTER 2023-03-13 15:43 | Emergency (ER) | payer OTHER ==
--- OUTSIDE RECORDS SUMMARY | 2023-03-13 16:02 | XMS REPORT | Continuity of Care Document ---
:1950 Author Organization [facility] t Address [address] [place] [address] Yovany. [address] [place] [address] Care Team Providers Name Role Phone Gisselle Cox Primary Care Physician [phone] CONG STEWART Attending Clinician Unavailable Cong Stewart MD Attending Clinician YASHIRA MURPHY Attending Clinician Unavailable MCKENZIE LANDA Attending Clinician Unavailable MD MCKENZIE LANDA Attending Clinician Unavailable DEBBY CANNON Attending Clinician Unavailable THOMPSON BALTAZAR Attending Clinician Unavailable Doctor Unassigned, [place] Attending Clinician Unavailable Alexi Luis RN Attending Clinician Unavailable [facility] Attending Clinician Unavailable Cher Husain MD Attending Clinician [phone] MCKENZIE LANDA Admitting Clinician Unavailable MD MCKENZIE LANDA Admitting Clinician Unavailable Payers Payer Name Policy Type Policy Number Effective Date Expiration Date Vitor gonsales [facility] [id number] 2015 00:00:00 PLUS [facility] [id number] 2016 00:00:00 Problems Condition Condition Condition Status Onset Resolution Last Treating Co mments Source Name Details Category Date Date Treatment Clinician Date Hernia, Hernia, Disease Active Overview: Meth mercedes hiatal hiatal 2-[address] 00:00: g of this Hospita 00 note l might be different from the original. 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 3-04 st um um 00:00: Hospita 00 l Chronic Chronic Disease Active Univers pain of pain of 5-25 ity of right [place] [facility] Chronic Chronic Disease Active Univers pain of pain of 5-25 [place] of [place] [facility] [place] COPD COPD Disease Active 2015-05 Univers (chronic (chronic 1-28 ity of obstructiv obstructiv [place] Medical pulmonary pulmonary Bran ch disease) disease) Dysuria Dysuria Disease Active Univers 7-25 ity of 00:00: [place] 00 Medical Branch Other, Other, Disease Active Univers mixed, or mixed, or 3-31 ity of unspecifie unspecifie 00:[place] Medical nondepende nondepende Br anch nt drug nt drug abuse, abuse, unspecifie unspecifie d d Depressive Depressive Disease Active Overview : Univers disorder disorder 3-31 Formattin ity of 00:00: g of this [place] 00 note Medical might be Branch different from the original. ICD10 Diagnosis Term Core Manager Utility Allergies, Adverse Reactions, Alerts Allergy Allergy Status Severity Reaction(s) Onset Inactive Treating Comm ents Source Name Type Date Date Clinician Codeine Propensi Active Rash Methodi ty to 2-19 st adverse 00:00: Hospita reaction 00 l s to drug CODEINE DRUG Active Hives Univers INGREDI 3-30 ity of 00:00: [place] 00 Medical Branch Codeine Propensi Active Hives Univers ty to 3-30 ity of adverse 00:00: [place] reaction 00 Medical s Branch Family History Family Member Diagnosis Comments Start Date Stop Date Source Natural brother Lung cancer [facility] Natural father Lung cancer [facility] Natural mother Lung cancer [facility] Natural sister Lung cancer [facility] Social History Social Habit Start Date Stop Date Quantity Comments Source Sexual orientation 2020-10-11 Heterosexual Meth odist 12:39:03 (finding) Hospital History [facility] Alcohol Std Drinks Hospit al History [facility] Binge [facility] Exposure to Not sure University of SARS-CoV-2 (event) [facility] Alcohol intake 2020-10-11 2020-10-11 Current non-drinker M ethodist 00:00:00 00:00:00 of alcohol Hospital (finding) History of Social 2020-10-11 2020-10-[address] function 00:00:00 00:00:[address] [facility] 2020-09-07 2020-09-07 1 [facility] Alcohol Frequency 00:00:00 00:00:00 Hospita l History SDOH 2020-06-06 2020-06-06 5 [facility] Financial 00:00:00 00:00:00 Hospital History SDOH Food 2020-06-06 2020-06-[address] Worry 00:00:00 00:00:00 Hospital History SDOH Food 2020-06-06 2020-06-[address] Scarcity 00:00:00 00:00:00 Hospital History SDOH 2020-06-06 2020-06-06 2 [facility] Transport Med 00:00:00 00:00:00 Hospital History SDOH 2020-06-06 2020-06-06 2 [facility] Transport Non-Med 00:00:00 00:00:00 Hospita l Tobacco use and 2018-06-23 2018-06-23 Smokeless tobacco Me thodist exposure 00:00:00 00:00:00 non-user Hospital Cigarettes smoked 2018-06-23 2018-06-[address] current (pack per 00:00:00 00:00:00 Hospita l day) - Reported Cigarette 2018-06-23 2018-06-23 [facility] pack-years 00:00:00 00:00:00 Hospital Tobacco Comment 2015-10-19 2015-10-19 Smokes only on Unive rsity of 00:00:00 00:00:00 occasion [facility] History of tobacco 2011-06-23 Cigarette Smoker [facility] use 00:00:00 Hospital Sex Ass[birth year] At [birth year] Universit y of 00:00:00 00:00:00 [facility] Smoking Status Start Date Stop Date Source Ex-smoker 2018-06-23 00:00:00 2018-06-23 [facility] Ho spital 00:00:00 Occasional tobacco 2015-10-19 00:00:00 [facility] smoker Medical Branch Medications Ordered Filled Start Stop Current [...] 12:36: mouth Hospita 48 daily. l traMADol 2020-0 Yes 50mg Q.[id number] Take 50 mg Methodi (ULTRAM) 50 6-09 [id number] mouth [address] mg tablet 12:36: 3D (three) Hospi ta 48 times a l day. methocarbam 0 Yes 500mg Q.25D Take 500 Methodi oL 6-[address] (ROBAXIN) 12:36: mouth 4 Hospi ta 500 MG 48 (four) l tablet times a day. HYDROcodone Yes 1{tbl} Q6H Take 1 Me thodi -acetaminop 6-[address] hen (NORCO) 12:36: mouth Hospi ta 10-325 mg 48 every 6 l per tablet (six) hours as needed for moderate pain. meloxicam Yes 7.5mg QD Take 7.5 Met hodi (MOBIC) 7.5 6-[address] mg tablet 12:36: mouth Hospita 48 daily. l traMADol Yes 50mg Q.[id number] Take 50 mg Methodi (ULTRAM) 50 6-09 [id number] mouth [address] mg tablet 12:36: [...] 12 hours or as directed by physician. lidocaine [address] 1 Met hodi % adhesive 5-[address] patch,medic 00:00: the skin Ho spita ated 00 daily. l Remove and discard patch within 12 hours or as directed by physician. Trelegy 2019-05 Yes Methodi Ellipta 2-15 st 100-62.5-25 00:00: Hospit a mcg blister 00 l with device powder for inhalation Trelegy 2019-05 Yes Methodi Ellipta 2-15 st 100-62.5-25 00:00: Hospit a mcg blister 00 l with device powder for inhalation pregabalin 2019-05 Yes 100mg Take 100 Me thodi (LYRICA) 2-[address] 100 MG 00:00: mouth. Hospita capsule 00 l pregabalin 2019- Yes 100mg Take 100 Me thodi (LYRICA) 2-[address] 100 MG 00:00: mouth. Hospita capsule 00 l traMADOL 2020- No 50mg Take 50 mg Un bright (ULTRAM) 50 5-26 05-26 by mouth ity of mg tablet 19:12: 00:00 every 4 [place] 10 :00 (four) Medical hours as Branch needed. fluticasone 2020-0 2020- No 1{puff} Inhale 1 Univers -salmeterol 5-26 05-26 Puff as ity of (ADVAIR) 19:12: 00:00 needed. [place] 250-50 10 :00 Medical mcg/dose Branch inhalation disk cyclobenzap 2020-0 Yes cyclobenza Univers rine 10 mg 5-26 heriberto 10 ity o f tablet 19:12: mg tablet [place] 05 Medical Branch naloxone 2020-0 Yes Narcan 4 Unive rs (NARCAN) 4 5-26 mg/actuati ity of mg/actuatio 19:12: [place] nasal [place] [facility] 05 spray Medical Branch meloxicam 2019-0 Yes [...] ity o f tablet 19:12: mg tablet [place] 05 Medical Branch naloxone 2020-0 Yes Narcan 4 Unive rs (NARCAN) 4 5-26 mg/actuati ity of mg/actuatio 19:12: [place] nasal [place] [facility] 05 spray Medical Branch meloxicam 2020-0 Yes [...] mg/actuatio 19:12: on nasal [place] [facility] 05 spray Medical Branch meloxicam 2020-0 Yes [...] ity o f tablet 19:12: mg tablet Medical Branch naloxone 2020-0 Yes Narcan 4 Unive rs (NARCAN) 4 5-26 mg/actuati ity of mg/actuatio 19:12: on nasal [place] [facility] 05 spray Medical Branch meloxicam 2020-0 Yes [...] 5-26 heriberto 10 ity o f tablet 14:12: mg tablet [place] [address] Medical Branch naloxone 2020-0 Yes Narcan 4 Unive rs (NARCAN) 4 5-26 mg/actuati ity of mg/actuatio 14:12: on nasal [place] [facility] 05 spray Medical Branch meloxicam 2020-0 Yes Mobic 7.5 Uni vers (MOBIC) 7.5 5-26 mg tablet ity of mg tablet 14:12: Take 1 [place] 05 tablet Medical every day Branch by oral route as directed for 7 days. fluticasone 2020-0 Yes Trelegy Uni vers -umeclidin- 5-26 Ellipta ity o f vilanter 14:12: 100 [place] 100-62.5-25 05 mcg-62.5 Medi ann-marie mcg DsDv mcg-25 mcg Branc h powder for inhalation doxycycline 2019-0 2020- No [id number] 100mg Take 1 Univers hyclate 100 5-28 10-03 tablet by it y of mg tablet 00:00: 04:59 mouth 2 [place] 00 :00 (two) Medical times Branch daily for 7 days. doxycycline 2020-0 2020- No [id number] 100mg Take 1 Univers hyclate 100 5-26 -03 tablet by it y of mg tablet 00:00: 04:59 mouth 2 [place] 00 :[place] (two) Medical times Branch daily for 7 days. doxycycline 2020-0 2020- No [id number] 100mg Take 1 Univers hyclate 100 -28 10-03 tablet by it y of mg tablet 00:00: 04:59 mouth 2 [place] 00 :00 (two) Medical times Branch daily for 7 days. methocarbam 2020-0 Yes TK 1 T PO U nivers ol 750 mg 5-21 BID FOR 7 ity o f tablet 00:00: DAYS [address] methocarbam 2020-0 Yes TK 1 T PO U nivers ol 750 mg 5-21 BID FOR 7 ity o f tablet 00:00: DAYS [address] methocarbam 2020-0 Yes TK 1 T PO U nivers ol 750 mg 5-21 BID FOR 7 ity o f tablet 00:00: DAYS [address] methocarbam 2020-0 Yes TK 1 T PO U nivers ol 750 mg 5-21 BID FOR 7 ity o f tablet 00:00: DAYS [address] methocarbam 2020-0 Yes TK 1 T PO U nivers ol 750 mg 5-21 BID FOR 7 ity o f tablet 00:00: DAYS [address] omeprazole 2019-0 Yes 40mg QD Take 40 mg M ethodi (PriLOSEC) 2-[address] 40 MG 00:00: daily. Hospita capsule 00 l omeprazole Yes 40mg QD Take 40 mg M [...] 00 l 20-100 mcg/actuati on mist inhaler ipratropium 2016- Yes 1{puff} QD Inhale 1 Methodi -albuterol 7-[address] (COMBIVENT 00:00: morning. Hos tu RESPIMAT) 00 l 20-100 mcg/actuati on mist inhaler Budesonide 2020- No 1{puff} Inhale 1 Univers (PULMICORT 7-02 05-26 Puff ity of FLEXHALER) 00:00: 00:00 [place]. [place] 90 00 :00 Medical mcg/actuati Branch on aerosol powder diclofenac 2017-0 Yes 75mg Take 1 Unive [...] ORAL TAB 2-09 Qam ity of 19:55: [address] omeprazole 2015-05 Yes 40mg Take 40 mg U nivers (PRILOSEC) 2-09 by mouth ity o f 40 mg 19:55: daily. [address] BUSPIRONE 2015-05 Yes 1 tab po Univ ers 10 MG ORAL 2-09 TID ity of TAB 19:55: [address] CELEXA 20 2015-05 Yes 2 tabs po Uni vers MG ORAL TAB 2-09 Qam ity of 19:55: [address] omeprazole 2015-05 Yes 40mg Take 40 mg U nivers (PRILOSEC) 2-09 by mouth ity o f 40 mg 19:55: daily. [address] BUSPIRONE 2015-05 Yes 1 tab po Univ ers 10 MG ORAL 2-09 TID ity of TAB 19:55: [address] 20 2015-05 Yes 2 tabs po Uni vers MG ORAL TAB 2-09 Qam ity of 19:55: [address] omeprazole 2015-05 Yes 40mg Take 40 mg U nivers (PRILOSEC) 2-09 by mouth ity o f 40 mg 19:55: daily. [address] BUSPIRONE 2015-05 Yes 1 tab po Univ ers 10 MG ORAL 2-09 TID ity of TAB 19:55: [address] CELEXA 20 2015-05 Yes 2 tabs po Uni vers MG ORAL TAB 2-09 Qam ity of 19:55: [address] omeprazole 2015-05 Yes 40mg Take 40 mg U nivers (PRILOSEC) 2-09 by mouth ity o f 40 mg 19:55: daily. [address] BUSPIRONE 2015-05 Yes 1 tab po Univ ers 10 MG ORAL 2-09 TID ity of TAB 13:55: [address] 20 2015-05 Yes 2 tabs po Uni vers MG ORAL TAB 2-09 Qam ity of 13:55: [address] omeprazole 2015-05 Yes 40mg Take 40 mg U nivers (PRILOSEC) 2-09 by mouth ity o f 40 mg 13:55: daily. [place] capsule 46 Medical Branch zolpidem 2015-05 Yes 5mg Take 1 Univers [...] .63mg Use 3 mL Uni vers (ACCUNEB) 209 as ity of 0.63 mg/3 00:00: directed [...] No 10mg Take 1 Univ ers (DELTASONE) 2- tablet by it y of 10 mg 00:00: 00:00 mouth [place] tablet 00 :00 daily. Medical Branch NAPROXEN 0 Yes [id number] 1 tab po Univers 500 MG ORAL 1-21 BID ity of TAB 00:00: [place] 00 Medical Branch NAPROXEN 0 Yes [id number] 1 tab po Univers 500 MG ORAL 1-21 BID ity of TAB 00:00: [place] 00 Medical Branch NAPROXEN 2009-0 Yes [id number] 1 tab po Univers 500 MG ORAL 1-21 BID ity of TAB 00:00: [place] 00 Medical Branch NAPROXEN 0 Yes [id number] 1 tab po Univers 500 MG ORAL 1-21 BID ity of TAB 00:00: [place] 00 Medical Branch NAPROXEN Yes [id number] 1 tab po Univers 500 MG ORAL - BID ity of TAB 00:00: [address] BACLOFEN 10 2020- No [id number] 1 tab po Univers MG ORAL TAB -22 09- TID ity of 00:00: 00:00 [place] 00 :00 [facility] Immunizations Ordered Filled Date Status Comments Source Immunization Name Immunization Name PFIZER COVID-19 2020-07-01 Completed [facility] MRNA VACCINATION 00:00:00 [facility] PFIZER COVID-19 2020-06-10 Completed [facility] MRNA VACCINATION 00:00:00 [facility] Pneumococcal 13 2019-06-07 Completed Universit y of Conjugate, PCV13 00:00:00 [facility] [place] dicwa (Prevnar 13) [place] Zoster Vaccine 2019-06-07 Completed University of Recombinant 00:00:00 [facility] PFIZER COVID-19 Unknown Completed [facility] VACC[facility]ATION Hospital PFIZER COVID-19 Unknown Completed [facility] VACC[facility]ATION Hospital Vital Signs Vital Name Observation Time Observation Value Comments Source Systolic blood 2019-09-28 18:55:00 143 mm[Hg] Univer sity of [facility] Diastolic blood 2019-09-28 18:55:00 78 mm[Hg] Unive rsity of [facility] Heart rate 2019-09-28 18:51:00 69 /min [facility] Body temperature 2019-09-28 18:51:00 36.94 Kathrin [facility] Respiratory rate 2019-09-28 18:51:00 20 /min [facility] [facility] Body height 2019-09-28 18:51:00 170.2 cm [facility] Body weight 2019-09-28 18:51:00 71.215 kg [facility] BMI 2019-09-28 18:51:00 24.59 kg/m2 [facility] Oxygen saturation in 2019-09-28 18:51:00 97 /min [facility] Arterial blood by [facility] Pulse oximetry Branch Systolic blood 2019-09-28 18:55:00 143 mm[Hg] Univer sity of [facility] Diastolic blood 2019-09-28 18:55:00 78 mm[Hg] Unive rsity of [facility] Heart rate 2019-09-28 18:51:00 69 /min [facility] Body temperature 2019-09-28 18:51:00 36.94 Kathrin [facility] Respiratory rate 2019-09-28 18:51:00 20 /min [facility] Body height 2019-09-28 18:51:00 170.2 cm [facility] Body weight 2019-09-28 18:51:00 71.215 kg [facility] BMI 2019-09-28 18:51:00 24.59 kg/m2 [facility] Oxygen saturation in 2019-09-28 18:51:00 97 /min [facility] Arterial blood by [facility] Pulse oximetry Branch Procedures Procedure Date / Time Performing Clinician Source Performed AUTHORIZATION FOR 2019-10-28 05:01:00 Doctor Unassigned, No Univ [facility] RELEASE OF PHI Name [facility] Plan of Care Planned Activity Planned Date Details Comments Source Future Scheduled 2023-02-27 [facility] Test 07:20:29 malignant neoplasm of colon (procedure) [code = 976326204] Future Scheduled 2023-02-27 [facility] Test 07:20:29 malignant neoplasm of colon (procedure) [code = 746472204] Future Scheduled 2023-02-27 [facility] Test 07:20:29 malignant neoplasm of colon (procedure) [code = 030609716] Future Scheduled 2023-02-27 BREAST CANCER [facility] Test 07:20:29 SCREENING [code = BREAST CANCER SCREENING] Future Scheduled 2023-02-27 [facility] Test 07:20:29 malignant neoplasm of colon (procedure) [code = 651931819] Future Scheduled 2023-02-27 [facility] Test 07:20:29 malignant neoplasm of colon (procedure) [code = 221428341] Future Scheduled 2023-02-27 HEPATITIS B VACCINES [facility] Test 07:20:29 (1 of 3 - Risk 3-dose series) [code = HEPATITIS B VACCINES (1 of 3 - Risk 3-dose series)] Future Scheduled 2023-02-27 SHINGLES VACCINES (2 [facility] Test 07:20:29 of 2) [code = SHINGLES VACCINES (2 of 2)] Future Scheduled 2023-02-27 65+ [facility]OCOCCAL [facility] Test 07:20:29 VACCINE (3 - PPSV23 or PCV20) [code = 65+ PNEUMOCOCCAL VACCINE (3 - PPSV23 or PCV20)] Future Scheduled 2023-02-27 COVID-19 VACCINE (3 - [facility] Test 07:20:29 season) [code = COVID-19 VACCINE (3 - season)] Future Scheduled 2023-02-27 INFLUENZA VACCINE (#1) M [facility] Test 07:20:29 [code = INFLUENZA VACCINE (#1)] Future Scheduled 2022-01-02 BREAST CANCER [facility] Test 13:34:20 SCREENING [code = BREAST CANCER SCREENING] Future Scheduled 2022-01-02 COLONOSCOPY SCREENING [facility] Test 13:34:20 [code = COLONOSCOPY SCREENING] Future Scheduled 2022-01-02 HEPATITIS B VACCINES [facility] Test 13:34:20 (1 of 3 - Risk 3-dose series) [code = HEPATITIS B VACCINES (1 of 3 - Risk 3-dose series)] Future Scheduled 2022-01-02 SHINGLES VACCINES (2 [facility] Test 13:34:20 of 2) [code = SHINGLES VACCINES (2 of 2)] Future Scheduled 2022-01-02 65+ PNEUMOCOCCAL [facility] Test 13:34:20 VACCINE (3 - PPSV23 or PCV20) [code = 65+ PNEUMOCOCCAL VACCINE (3 - PPSV23 or PCV20)] Future Scheduled 2022-01-02 COVID-19 VACCINE (3 - [facility] Test 13:34:20 Booster for Pfizer series) [code = COVID-19 VACCINE (3 - Booster for Pfizer series)] Future Scheduled 2022-01-02 INFLUENZA VACCINE [facility] Test 13:34:20 [code = INFLUENZA VACCINE] Encounters Start End Encounter Admission Attending Care Care Encounter Source Date/Time Date/Time Type Type Clinicians Facility Department ID 2022-11-20 2022-11-20 Outpatient LIBORIO CAPONE [id number] [place] 13:39:07 13:39:07 [id number] F Benny 2022-02-21 2022-02-21 Outpatient Kevin STEWART [facility] [id number] [facility] 12:45:00 12:45:00 CONG [facility] 2022-02-21 2022-02-[address] [facility] [id number] [facility] 00:00:00 00:00:00 , Cong MONTANO [id number] ity of [facility] [id number] [facility] AT [phone] Ia soledad LENNON [address] [place] [address] 2020-10-11 2020-10-11 Outpatient ERIKKATIEMESFIN, [facility] [id number] [place] 00:00:00 00:00:00 YASHIRA [address] 2020-09-07 2020-09-09 Outpatient MCKENZIE LANDA [facility] [id number] [place] 00:00:00 00:00:[address] 2020-09-04 2020-09-04 Outpatient MCKENZIE LANDA [facility] [id number] [place] 00:00:00 00:00:[address] 2020-08-13 2020-08-13 Emergency E KASSANDRA, [facility] M[facility] [id number] [facility]W 13:55:00 22:34:00 DEBBY 2020-07-18 2020-07-18 Outpatient MCKENZIE LANDA [facility] [id number] [place] 00:00:00 00:00:[address] 2020-07-01 2020-07-01 Outpatient GIOVANNY, [facility] [id number] 723 [place] 00:00:00 00:00:00 THOMPSON 113 Ia thodi 2020-06-10 2020-06-10 Outpatient [facility] [id number] [place] 00:00:00 00:00:[address] 2020-06-06 2020-06-06 Outpatient MCKENZIE LANDA [facility] [id number] [place] 00:00:00 00:00:[address] 2020-06-06 2020-06-06 Outpatient MCKENZIE LANDA [facility] [id number] [place] 00:00:00 00:00:[address] 2019-10-28 2019-10-28 Orders Doctor ALBERTO [id number] 00:00:00 00:00:00 Only Unassigned, KRISTINA [id number] [facility] [id number] 2019-10-28 2019-10-28 Orders Doctor REMY [id number] Univers 00:00:00 00:00:00 Only Unassigned, KRISTINA [id number] ity of [facility] 4.2.7.2.686 [place] as [id number] [address] 2019-09-29 2019-09-29 Letter REMY Luis [id number] 00:00:00 00:00:00 (Out) Aneatrice KRISTINA [id number] HOSPITAL [id number] [id number] 2019-09-29 2019-09-29 Telephone REMY Luis [id number] 00:00:00 00:00:00 Aneatrice KRISTINA [id number] HOSPITAL [id number] [id number] 2019-09-29 2019-09-29 Letter REMY Luis [id number] Univers 00:00:00 00:00:00 (Out) Aneatrice KRISTINA [id number] ity of HOSPITAL [id number] [place] [id number] [address] 2019-09-29 2019-09-29 Telephone REMY Luis [id number] Univers 00:00:00 00:00:00 Aneatrice KRISTINA [id number] ity of HOSPITAL [id number] [place] [id number] [address] 2019-09-28 2019-09-28 Urgent Pob1, Acute [facility] [id number] 13:32:46 13:52:46 Care [facility] [id number] Josephine [id number] Professio [id number] nal [address] 2019-09-28 2019-09-28 Urgent Pob1, Acute Care Clinic [facility] 1. [id number] [facility] 13:32:46 13:52:46 Care [facility]1 .13.10 [facility] [id number] [place] Ariel [id number] Ia dical [address] Office [facility] One 2019-09-28 2019-09-28 Outpatient R [facility] [id number] [facility] 13:00:00 13:00:00 ity [facility] 2018-08-20 2018-08-23 Inpatient MCKENZIE LANDA [facility] [id number] 477 [place] 00:00:00 00:00:[address] Results Test Description Test Time Test Comments Results Result Comments Source SARS-CoV-2 (COVID-19) RNA [Presence] in Respiratory sp ecimen by 2020-09-04 18:53:57 ERICA with probe detection Test Item Value Reference Range Interpretation Comme nts SARS-CoV-2 (COVID-19) RNA [Presence] in Respiratory Not detected No t-Detected specimen by ERICA with probe detection (test code = 11371-1) Whether patient is employed in a healthcare setting (test code = 57697-1) Whether the patient has symptoms related to condition of interest (test code = 20087-2) Patient was hospitalized because of this condition (test code = 42993-3) Whether the patient was admitted to intensive care unit (ICU) for condition of interest (test code = 65647-0) Whether patient resides in a congregate care setting (test code = 76393-6) JAVIER SEGUNDORS-CoV-2 (COVID-19) RNA [Presence] in Respiratory specimen by ERICA with probe [id number] 13:54:03 Test Item Value Reference Range Interpretation Comments SARS-CoV-2 (COVID-19) RNA Not detected Not-Detected [Presence] in Respiratory specimen by ERICA with probe detection (test code = 03995-0) JAVIER CAMPBELL
[2023-03-13] MEDS ORDERED: HYDROCODONE/APAP 7.5/325 MG TAB ONE (17:17)
--- NOTE | 2023-03-13 17:45 | RAD REPORT ---
EXAM DESCRIPTION: RAD - Femur Left - 03/13/2023 4:56 pm CLINICAL HISTORY: PAIN COMPARISON: No comparisons TECHNIQUE: Left femur, 2 views. FINDINGS: No fracture is identified. There is no dislocation or periosteal reaction noted. No acute or suspicious bony finding. IMPRESSION: Negative left femur examination.
--- NOTE | 2023-03-13 17:46 | RAD REPORT ---
EXAM DESCRIPTION: RAD - Tib Fib Left - 03/13/2023 4:57 pm CLINICAL HISTORY: PAIN COMPARISON: No comparisons TECHNIQUE: Left tibia and fibula, 2 views. FINDINGS: No fracture is identified. There is no dislocation or periosteal reaction noted. No foreign body or other soft tissue abnormalit y. Moderate calcaneal spur. IMPRESSION: No acute osseus abnormality. Moderate calcaneal spur. .
--- NOTE | 2023-03-13 17:46 | RAD REPORT ---
EXAM DESCRIPTION: RAD - Pelvis - 03/13/2023 4:56 pm CLINICAL HISTORY: fall COMPARISON: Hip Bilateral With Pelvis dated 12/31/2021 TECHNIQUE: Single AP view of the pelvis. FINDINGS: The visualized pelvic ring is intact. Stable mild deformity along the left inferior pubic ramus may relate to healed fracture. No suspicious osseous lesions. No significant degenerative mccall es or erosions of the hip joints. Other pelvic joints are unremarkable. Visualized aspects of the abd omen and soft tissues are unremarkable. IMPRESSION: No acute osseous abnormality of the bony pelvis.
[2023-03-13] MEDS ORDERED: MORPHINE 4 MG/ML SYR ONE (19:17)
--- NOTE | 2023-03-13 19:29 | RAD REPORT ---
EXAM DESCRIPTION: CT - Knee Left Wo Con - 03/13/2023 6:33 pm CLINICAL HISTORY: fall COMPARISON: Tib Fib Left dated 03/13/2023 TECHNIQUE: Thin axial CT images of the left knee, performed without IV contrast. Multiplanar reforma ts were generated and reviewed. All CT scans are performed using dose optimization technique as appropriate and may include automated exposure control or mA/KV adjustment according to patient size. FINDINGS: No acute fracture or dislocation. No suspicious osseous lesion. Mild tricompartmental oste oarthritic changes with minimal marginal spurring, most pronounced at the patellofemoral articulation . No appreciable joint effusion. Soft tissue swelling and hyperdense hematoma anterior to the patella and patellar tendon. The hyperde nse hematoma largest component is present opposite the lower patellar tendon and tibial tuberosity, m easuring 4.5 x 2.3 cm in greatest axial dimension, with a small fluid fluid level. Overall, the hyper dense hematoma measures up to 8.5 cm in greatest CC extent. Muscle compartments Unremarkable. Major neurovascular structures are unremarkable. No soft tissue gas or calcifications. IMPRESSION: Soft tissue swelling and hematoma anteriorly opposite patella, patellar tendon, and tibi al tuberosity as above. No acute osseus abnormality.
--- NOTE | 2023-03-13 19:42 | ER ---
Nurse's Notes [facility] Name: Shannan Patel Age: 72 yrs Sex: Female : 1950 Arrival Date: 03/13/2023 Time: 15:43 Bed 10 Private MD: Gerard Combs Diagnosis: Contusion of left knee, initial encounter-with hematoma Presentation: 03/13 16:05 Chief complaint: Patient states: There was something under my bed and i tripped over it kd3 and went down on my left knee and it popped really loud. I think it may be broken. Coronavirus screen: Vaccine status: Patient reports receiving the 2nd dose of the covid vaccine. Ebola Screen: No symptoms or risks identified at this time. Initial Sepsis Screen: Does the patient meet any 2 criteria? No. Patient's initial sepsis screen is negative. Does the patient have a suspected source of infection? No. Patient's initial sepsis screen is negative. Risk Assessment: Do you want to hurt yourself or someone else? Patient reports no desire to harm self or others. Onset of symptoms was March 13, 2023. 16:05 Method Of Arrival: Wheelchair kd3 16:05 Acuity: DEVANTE 3 kd3 Triage Assessment: 16:06 General: Appears uncomfortable, Behavior is calm, cooperative. Pain: Complains of pain kd3 in left knee. Musculoskeletal: Swelling present in right knee. Injury Description: Bruise sustained to left knee. Historical: - Allergies: 16:06 Codeine (Hives); kd3 - PMHx: 16:06 cervical cancer; cervical cancer; Herniated disc; Herniated disc; bunions; bunions; kd3 degenerative bone disease; degenerative bone disease; Gastric Reflux; Gastric Reflux; ovarian cancer; ovarian cancer; Pneumonia; Pneumonia; sciatica; COPD; - PSHx: 16:06 back surgery; hysterectomy; hysterectomy; kd3 - Immunization history:: Adult Immunizations up to date. - Social history:: Smoking status: Patient denies any tobacco usage or history of. Screenin:00 [facility] ED Fall Risk Assessment (Adult) History of falling in the last 3 months, iw including since admission No falls in past 3 months (0 pts) Confusion or Disorientation Intoxicated or Sedated No (0 pts) Impaired Gait Yes (1 pt) Mobility Assist Device Used No (0 pt) Altered Elimination No (0 pt) Score/Fall Risk Level 0 - 2 = Low Risk Maintained a safe environment, Provided non-skid footwear, Hourly rounding (assess needs \\T\\ fall precautionary measures) done. Abuse screen: Denies threats or abuse. Nutritional screening: No deficits noted. Tuberculosis screening: No symptoms or risk factors identified. Assessment: 19:00 Pain: Complains of pain in left knee Pain does not radiate. Pain currently is 8 out of iw 10 on a pain scale. Quality of pain is described as throbbing, Pain began suddenly, 3 hours ago. Is continuous. Neuro: Level of Consciousness is awake, alert, obeys commands, Oriented to person, place, time, situation, Appropriate for age. Cardiovascular: Capillary refill < 3 seconds Patient's skin is warm and dry. Respiratory: Airway is patent Respiratory effort is even, unlabored, Respiratory pattern is regular, symmetrical. Musculoskeletal: Swelling present in left leg and left knee. 20:51 General: Appears uncomfortable, well groomed, well developed, well nourished, Behavior iw is calm, cooperative, appropriate for age, Reports "There was something under my bed and i tripped over it and went down on my left knee and it popped really loud. I think it may be broken. ". Vital Signs: 16:04 Pulse 80; Resp 18; Temp 97.9(TE); Pulse Ox 95% on R/A; Weight 77.11 kg; Height 5 ft. 4 kd3 in. ; 19:01 BP 132 / 94; Pulse 63; Resp 18; Pulse Ox 95% on R/A; Pain 10/10; iw 20:42 BP 130 / 96; Pulse 71; Resp 18; Pulse Ox 95% on R/A; iw 16:04 Body Mass Index 29.18 (77.11 kg, 162.56 cm) kd3 19:01 Pain Scale: Adult iw ED Course: 15:46 Patient arrived in ED. mr 15:47 Gerard Combs MD is Private Physician. mr 16:06 Triage completed. kd3 16:07 Arm band placed on right wrist. kd3 16:10 Ezra Mc PA is PHCP. cp 16:10 Catalino Blanco DO is Attending Physician. cp 16:58 XRAY Pelvis In Process Unspecified. EDMS 16:58 XRAY Femur LEFT In Process Unspecified. EDMS 16:58 XRAY Tib Fib LEFT In Process Unspecified. EDMS 18:34 Knee Left Wo Con In Process Unspecified. EDMS 18:55 Shona Wan, RN is Primary Nurse. iw 19:00 Patient has correct armband on for positive identification. Bed in low position. Call iw light in reach. Side rails up X 1. Provided Education on: POC. Verbalized understanding.. 19:00 No provider procedures requiring assistance completed. Patient did not have IV access iw during this emergency room visit. 19:41 Bora Leo MD is Referral Physician. cp Administered Medications: 17:11 Drug: Hydrocodone-Acetaminophen PO (7.5 mg-325 mg) 1 tabs PO once; RASS on ADMIN: iw Combtv4, Very Agttd3, Agttd2, Rstlss1, AlertClm0, Drwsy-1, Lt Sdtn-2, Mod Sdtn-3, Dp Sdtn-4, UnArsble-5 Route: PO; 20:57 Follow up: Response: No adverse reaction; Pain is decreased iw 19:04 Drug: morphine IM 4 mg IM once; if systolic pressure above 120 Route: IM; Site: right iw deltoid; 20:56 Follow up: Response: No adverse reaction; Pain is decreased iw Medication: 19:00 VIS not applicable for this client. iw Outcome: 19:42 Discharge ordered by MD. cp 20:56 Discharged to home via wheelchair, with significant other, iw 20:56 Condition: stable 20:56 Discharge instructions given to patient, significant other, Instructed on discharge instructions, follow up and referral plans. medication usage, Demonstrated understanding of instructions, follow-up care, medications, Prescriptions given X 1, 20:56 Patient left the ED. iw Signatures: Dispatcher [employer] EDMS Anayeli Castañeda, Reg Reg mr Shona Wan, RN RN iw Ezra Mc PA PA cp Kita Bhatia RN RN kd3 Corrections: (The following items were deleted from the chart) 20:51 16:05 Chief complaint: Patient states: There was something under my bed and i tripped iw over it and went down on my left knee and it popped really loud. I think it may be broken. kd3
--- NOTE | 2023-03-13 19:43 | EDPHYS ---
Physician Documentation [facility] Name: Shannan Patel Age: 72 yrs Sex: Female : 1950 Arrival Date: 03/13/2023 Time: 15:43 Bed 10 Private MD: Gerard Combs ED Physician Catalino Blanco HPI: 03/13 16:33 This 72 yrs old Female presents to ER via Wheelchair with complaints of Leg Pain, Knee cp Pain, Ankle Injury. 16:33 The patient presents with an injury, pain, that is acute, swelling, tenderness. The cp complaints affect the left knee. Context: resulted from the patient falling, while walking, the patient is not able to bear weight, the patient is not able to ambulate. Onset: The symptoms/episode began/occurred today. Associated signs and symptoms: Pertinent positives: left hip and left ankle pain, Pertinent negatives fever, numbness, abdominal pain. Treatment prior to arrival includes: no previous treatment. Historical: - Allergies: 16:06 Codeine (Hives); kd3 - PMHx: 16:06 cervical cancer; cervical cancer; Herniated disc; Herniated disc; bunions; bunions; kd3 degenerative bone disease; degenerative bone disease; Gastric Reflux; Gastric Reflux; ovarian cancer; ovarian cancer; Pneumonia; Pneumonia; sciatica; COPD; - PSHx: 16:06 back surgery; hysterectomy; hysterectomy; kd3 - Immunization history:: Adult Immunizations up to date. - Social history:: Smoking status: Patient denies any tobacco usage or history of. ROS: 16:35 MS/extremity: Positive for decreased range of motion, ecchymosis, pain, swelling, cp tenderness, of the left knee, 16:35 Neck: Negative for pain with movement, pain at rest, stiffness, cp 16:35 Cardiovascular: Negative for chest pain, 16:35 Respiratory: Negative for cough, shortness of breath, wheezing, 16:35 Abdomen/GI: Negative for abdominal pain, vomiting, diarrhea, constipation, 16:35 Back: Negative for pain at rest, pain with movement, 16:35 Neuro: Negative for headache, loss of consciousness, syncope, 16:35 All other systems are negative, Exam: 16:40 Constitutional: The patient appears in no acute distress, alert, awake, cp non-diaphoretic, non-toxic, well developed, well nourished, uncomfortable, 16:40 Head/Face: Normocephalic, atraumatic. cp 16:40 Neck: C-spine: vertebral tenderness, is not appreciated, crepitus, is not appreciated, ROM/movement: is normal, is supple, without pain, no range of motions limitations, 16:40 Chest/axilla: Inspection: normal, 16:40 Cardiovascular: Rate: normal, Edema: is not appreciated, 16:40 Respiratory: the patient does not display signs of respiratory distress, Respirations: normal, no use of accessory muscles, no retractions, labored breathing, is not present, Breath sounds: are clear throughout, no decreased breath sounds, no stridor, no wheezing, 16:40 Abdomen/GI: Inspection: abdomen appears normal, Palpation: abdomen is soft and non-tender, in all quadrants, 16:40 Musculoskeletal/extremity: Extremities: grossly normal except: noted in the left hip: pain, tenderness, There is no evidence of decreased ROM, deformity, noted in the left knee: ecchymosis, pain, swelling, tenderness, pain with passive ROM, noted in the left ankle: pain, tenderness, no evidence of decreased ROM, deformity, 16:40 Neuro: Orientation: to person, place \T\ time. Mentation: is normal, Vital Signs: 16:04 Pulse 80; Resp 18; Temp 97.9(TE); Pulse Ox 95% on R/A; Weight 77.11 kg; Height 5 ft. 4 kd3 in. ; 19:01 BP 132 / 94; Pulse 63; Resp 18; Pulse Ox 95% on R/A; Pain 10/10; iw 20:42 BP 130 / 96; Pulse 71; Resp 18; Pulse Ox 95% on R/A; iw 16:04 Body Mass Index 29.18 (77.11 kg, 162.56 cm) kd3 19:01 Pain Scale: Adult iw MDM: 16:10 Patient medically screened. cp 17:00 Differential diagnosis: dislocation, closed fracture, contusion, hematoma. cp 19:42 Data reviewed: vital signs, nurses notes, radiologic studies, CT scan, plain films. cp 19:42 Consideration of Admission/Observation Escalation of care including cp admission/observation considered. I considered the following discharge prescriptions or medication management in the emergency department Medications were administered in the Emergency Department. See MAR. Counseling: I had a detailed discussion with the patient and/or guardian regarding the historical points, exam findings, and any diagnostic results supporting the discharge/admit diagnosis, radiology results, the need for outpatient follow up, for definitive care, a general surgeon, to return to the emergency department if symptoms worsen or persist or if there are any questions or concerns that arise at home. Response to treatment: the patient's symptoms have markedly improved after treatment, and as a result, I will discharge patient. ED course: Patient placed in knee immobilizer with instructions to remain non-wt bearing and to f/u with general surgery. 03/13 16:28 Order name: XRAY Pelvis; Complete Time: 17:53 cp 03/13 16:28 Order name: XRAY Femur LEFT; Complete Time: 17:53 cp 03/13 16:28 Order name: XRAY Tib Fib LEFT; Complete Time: 17:53 cp 03/13 18:14 Order name: Knee Left Wo Con; Complete Time: 19:30 EDMS 03/13 17:17 Order name: Knee Immobilizer; Complete Time: 20:34 cp 03/13 18:42 Order name: Vital Signs: recheck vitals to include blood pressure; Complete Time: 19:00 cp 03/13 19:43 Order name: Dinesh wrap-joint; Complete Time: 20:34 cp Administered Medications: 17:11 Drug: Hydrocodone-Acetaminophen PO (7.5 mg-325 mg) 1 tabs PO once; RASS on ADMIN: iw Combtv4, Very Agttd3, Agttd2, Rstlss1, AlertClm0, Drwsy-1, Lt Sdtn-2, Mod Sdtn-3, Dp Sdtn-4, UnArsble-5 Route: PO; 20:57 Follow up: Response: No adverse reaction; Pain is decreased iw 19:04 Drug: morphine IM 4 mg IM once; if systolic pressure above 120 Route: IM; Site: right iw deltoid; 20:56 Follow up: Response: No adverse reaction; Pain is decreased iw Disposition Summary: 03/13/23 19:42 Discharge Ordered Notes: Location: Home cp Problem: new cp Symptoms: have improved cp Condition: Stable cp Diagnosis - Contusion of left knee, initial encounter - with hematoma cp Followup: cp - With: Bora Leo MD - When: 2 - 3 days - Reason: Recheck today's complaints Discharge Instructions: - Discharge Summary Sheet cp - Hematoma cp - How to Use a Knee Immobilizer cp - RICE Therapy for Routine Care of Injuries cp - Acute Knee Pain, Adult cp Forms: - Medication Reconciliation Form cp - Thank You Letter cp - Antibiotic Education cp - Prescription Opioid Use cp - Patient Portal Instructions cp - Leadership Thank You Letter cp Prescriptions: - Tramadol 50 mg Oral Tablet - take 1 tablet ORAL route every 8 hours as needed; 12 tablet; Refills: 0, cp Product Selection Permitted Addendum: 03/15/2023 19:33 I was immediately available on-site in the Emergency Department for consultation in the m s3 care of the patient. Signatures: Dispatcher [employer] Shona Woodson, RN RN iw Ezra Mc PA PA Catalino Da Silva, DO ms3 Kita Bhatia RN RN kd3 Corrections: (The following items were deleted from the chart) 03/13 16:42 16:29 Knee Left 3 View+RAD.RAD.BRZ ordered. EDMS EDMS 18:14 17:56 CT LEFT KNEE WO CONTRAST ordered. EDMS EDMS 03/14 20:29 20:28 MS/extremity: Positive for decreased range of motion, ecchymosis, pain, swelling, cp tenderness, of the left knee, cp
[2023-03-13 21:09] VITALS: TEMP 97.9; O2SAT 95
[2023-03-13 21:12] VITALS: BP 130/96
== END 2023-03-13 20:56 | disposition home or self-care (01) ==
LOC: ER 15:43
DX: S80.02XA Contusion of left knee, initial encounter (principal); M25.552 Pain in left hip; Z88.5 Allergy status to narcotic agent
CPT/HCPCS: 72170; 73700; 96372; 99284

== ENCOUNTER → 2023-05-15 | Emergency (ER) | payer OTHER ==
[~2023-05-15] MED LIST: NA CHLORIDE 0.9% 2,000 ML ONE
[2023-05-15 04:19] LABS: Specific Gravity > 1.030 (1.005-1.030); Urine Bacteria None Seen /HPF (<20); Urine Bilirubin NEGATIVE (Negative); Urine Blood Negative (Negative); Urine Clarity Turbid (Clear); Urine Color Yellow (Yellow); Urine Glucose NEGATIVE (Negative); Urine Mucus Slight /HPF (None Seen); Urine Protein TRACE (Negative); Urine RBC <5 /HPF (None Seen); Urine Urobilinogen Normal (Normal); Urine pH 5.5 (5.0-7.0)
[2023-05-15 04:23] LABS: Absolute Lymphocytes (CBC) 2.2 K/uL (0.7-4.9); Hematocrit 40.9 % (36.0-45.0); Lymphocytes % 20.3 % (15.3-44.8); MCV 89.4 fL (80-100); MPV 8.6 fL (7.6-11.3); Platelets 269 thou/uL (152-406); RBC Red Blood Cell Count 4.57 M/uL (3.86-4.86)
[2023-05-15 04:27] LABS: Protime INR 1.03
[2023-05-15 04:29] LABS: Albumin 3.5 g/dL (3.4-5.0); Bilirubin Total 0.4 mg/dL (0.2-1.0); Potassium 3.9 mEq/L (3.5-5.1); Protein, Total 7.2 g/dL (6.4-8.2)
--- NOTE | 2023-05-15 04:42 | EDPHYS ---
Physician Documentation [facility] Name: Shannan Patel Age: 72 yrs Sex: Female : 1950 Arrival Date: 05/15/2023 Time: 02:03 Bed 2 Private MD: ED Physician Trudy Regan HPI: 05/15 04:43 This 72 yrs old Female presents to ER via Wheelchair with complaints of Flu Symptoms. gb1 04:43 72-year-old female that presents with crampy abdominal pain and chills for 2 days. She gb1 has a history of cervical cancer, COPD, degenerative bone disease, gastric reflux and herniated disc. She denies any nausea or actual fever as she did not take her temperature. She states that she feels feels more weak and tired lately. She denies any nausea or vomiting.. Historical: - Allergies: 02:21 Codeine (Hives); jj7 - PMHx: 02:21 bunions; cervical cancer; COPD; degenerative bone disease; Gastric Reflux; Herniated jj7 disc; ovarian cancer; Pneumonia; sciatica; - PSHx: 02:21 back surgery; hysterectomy; jj7 - Immunization history:: Adult Immunizations not immunized. - Social history:: Smoking status: Patient/guardian denies using tobacco, Patient/guardian denies using alcohol, street drugs. ROS: 04:43 Constitutional: Positive for chills, gb1 04:43 ENT: Negative for injury or acute deformity, 04:43 Neck: Negative for injury or acute deformity, 04:43 Abdomen/GI: Negative for constipation, abdominal distension, anorexia, dysphagia, 04:43 All other systems are negative, Exam: 04:43 Constitutional: This is a well developed, well nourished patient who is awake, alert, gb1 and in no acute distress. Head/Face: Normocephalic, atraumatic. Eyes: Pupils equal round and reactive to light, extra-ocular motions intact. Lids and lashes normal. Conjunctiva and sclera are non-icteric and not injected. Cornea within normal limits. Periorbital areas with no swelling, redness, or edema. ENT: Nares patent. No nasal discharge, no septal abnormalities noted. Tympanic membranes are normal and external auditory canals are clear. Oropharynx with no redness, swelling, or masses, exudates, or evidence of obstruction, uvula midline. Mucous membranes moist. Neck: Trachea midline, no thyromegaly or masses palpated, and no cervical lymphadenopathy. Supple, full range of motion without nuchal rigidity, or vertebral point tenderness. No Meningismus. Chest/axilla: Normal chest wall appearance and motion. Nontender with no deformity. No lesions are appreciated. Cardiovascular: Regular rate and rhythm with a normal S1 and S2. No gallops, murmurs, or rubs. Normal PMI, no JVD. No pulse deficits. Respiratory: Lungs have equal breath sounds bilaterally, clear to auscultation and percussion. No rales, rhonchi or wheezes noted. No increased work of breathing, no retractions or nasal flaring. Abdomen/GI: Soft, non-tender, with normal bowel sounds. No distension or tympany. No guarding or rebound. No evidence of tenderness throughout. Back: No spinal tenderness. No costovertebral tenderness. Full range of motion. Skin: Warm, dry with normal turgor. Normal color with no rashes, no lesions, and no evidence of cellulitis. MS/ Extremity: Pulses equal, no cyanosis. Neurovascular intact. Full, normal range of motion. Neuro: Awake and alert, GCS 15, oriented to person, place, time, and situation. Cranial nerves II-XII grossly intact. Motor strength 5/5 in all extremities. Sensory grossly intact. Cerebellar exam normal. Normal gait. Psych: Awake, alert, with orientation to person, place and time. Behavior, mood, and affect are within normal limits. Vital Signs: 02:16 BP 140 / 76; Pulse 77; Resp 17; Temp 98.9; Pulse Ox 94% ; Weight 72.57 kg; Height 5 ft. j 4 in. ; Pain 9/10; 04:02 BP 157 / 64; Pulse 70; Resp 18; Pulse Ox 98% on R/A; jb4 05:00 Pulse 76; Resp 16; Temp 98.2(O); Pulse Ox 100% on R/A; jb4 02:16 Body Mass Index 27.46 (72.57 kg, 162.56 cm) [facility] 02:16 Pain Scale: Adult [facility] MDM: 02:38 Patient medically screened. gb1 04:43 Differential diagnosis: acute coronary syndrome, cholecystitis, Cholelithiasis, gb1 diverticulitis, gastritis, gastroesophageal reflux disease, Irritable bowel syndrome, pancreatitis, Peptic Ulcer Disease, Perf. Duodenal Ulcer, Perf. Gastric Ulcer. 04:45 Data reviewed: vital signs, nurses notes. gb 04:46 ED course: Patient's blood work is seemingly within normal limits she does have a gb1 urinalysis that is positive for infection. I will prescribe ciprofloxacin twice daily x 7 days #14 no refills. At this time I doubt she has any signs of acute or pyelonephritis, infected stone or acute appendicitis or small bowel obstruction. Patient's abdominal exam is unimpressive for any acute intra-abdominal findings that may require surgery., . 05/15 02:17 Order name: Influenza Screen (a \T\ B); Complete Time: 04:04 05/15 02:17 Order name: COVID-19 SARS RT PCR; Complete Time: 04:19 05/15 03:13 Order name: UAM; Complete Time: 04:38 05/15 03:22 Order name: Blood Culture Adult (2) 05/15 03:22 Order name: CBC with Diff; Complete Time: 04:38 05/15 03:22 Order name: CMP; Complete Time: 04:38 05/15 03:22 Order name: Lactate w/ 2H reflex if indic.; Complete Time: 04:38 05/15 03:22 Order name: Protime (+inr); Complete Time: 04:38 05/15 03:22 Order name: Ptt, Activated; Complete Time: 04:38 05/15 04:24 Order name: Urine Culture [facility] 05/15 02:39 Order name: Chest Single View XRAY 05/15 03:22 Order name: EKG; Complete Time: 03:23 05/15 03:22 Order name: Accucheck; Complete Time: 04:04 05/15 03:22 Order name: Cardiac monitoring; Complete Time: 04:04 05/15 03:22 Order name: EKG - Nurse/Tech; Complete Time: 04:04 05/15 03:22 Order name: IV Saline Lock - Large Bore; Complete Time: 04:04 05/15 03:22 Order name: Labs collected and sent; Complete Time: 04:04 05/15 03:22 Order name: O2 Per Protocol; Complete Time: 03:31 05/15 03:22 Order name: O2 Sat Monitoring; Complete Time: 03:31 05/15 03:22 Order name: Vital Signs; Complete Time: 03:30 gb Administered Medications: 04:07 Drug: NS 0.9% IV (30 ml/kg) 30 ml/kg IV at bolus once; Sepsis Protocol Route: IV; Rate: jw7 bolus; Site: right antecubital; Disposition: 04:45 Chart complete. gb1 Disposition Summary: 05/15/23 04:42 Discharge Ordered Notes: Location: Home gb1 Problem: new gb1 Symptoms: are unchanged gb1 Condition: Stable gb1 Diagnosis - UTI/ Urinary tract infection, site not specified gb1 Followup: gb1 - With: Private Physician - When: As needed - Reason: Re-evaluation by your physician Discharge Instructions: - Discharge Summary Sheet gb1 - Urinary Tract Infection, Adult gb1 Forms: - Medication Reconciliation Form gb1 - Thank You Letter gb1 - Antibiotic Education gb1 - Prescription Opioid Use gb1 - Patient Portal Instructions gb1 - Leadership Thank You Letter gb1 Prescriptions: - Cipro 500 mg Oral Tablet - take 1 tablet ORAL route every 12 hours for 7 days; 14 tablet; Refills: 0, gb1 Product Selection Permitted Signatures: Dispatcher [employer] Amy Reynoso RN RN jw7 Kindra Germain RN RN jj7 Trudy Regan MD MD gb1 Corrections: (The following items were deleted from the chart) 03:47 03:23 Urinalysis+U.LAB.BRZ ordered. EDMT EDMS
--- NOTE | 2023-05-15 04:42 | ER ---
Nurse's Notes [facility] Name: Shannan Patel Age: 72 yrs Sex: Female : 1950 Arrival Date: 05/15/2023 Time: 02:03 Bed 2 Private MD: Diagnosis: UTI/ Urinary tract infection, site not specified Presentation: 05/15 02:16 Chief complaint: Patient states: BODY ACHES AND RUNNY NOSE STARTED LAST NIGHT. jj7 Coronavirus screen: At this time, the client does not indicate any symptoms associated with coronavirus-19. Ebola Screen: No symptoms or risks identified at this time. Initial Sepsis Screen: Does the patient meet any 2 criteria? No. Patient's initial sepsis screen is negative. Does the patient have a suspected source of infection? No. Patient's initial sepsis screen is negative. Risk Assessment: Do you want to hurt yourself or someone else?. Onset of symptoms was May 15, 2023. 02:16 Method Of Arrival: Wheelchair jj7 02:16 Acuity: DEVANTE 4 jj7 Triage Assessment: 02:21 General: Appears in no apparent distress. comfortable, Behavior is calm, cooperative, jj7 appropriate for age. 02:40 Pain: Complains of pain in abdomen Pain does not radiate. Pain currently is 6 out of 10 jw7 on a pain scale. Quality of pain is described as burning, aching, crampy, Pain began 1 day ago. Is intermittent. Historical: - Allergies: 02:21 Codeine (Hives); jj7 - PMHx: 02:21 bunions; cervical cancer; COPD; degenerative bone disease; Gastric Reflux; Herniated jj7 disc; ovarian cancer; Pneumonia; sciatica; - PSHx: 02:21 back surgery; hysterectomy; jj7 - Immunization history:: Adult Immunizations not immunized. - Social history:: Smoking status: Patient/guardian denies using tobacco, Patient/guardian denies using alcohol, street drugs. Screenin:[facility] ED Fall Risk Assessment (Adult) History of falling in the last 3 months, jw7 including since admission Yes- fall prone (multiple falls) (3 pts) Confusion or Disorientation Yes (5 pts) Intoxicated or Sedated No (0 pts) Impaired Gait No (0 pts) Mobility Assist Device Used Yes (1 pt) Altered Elimination No (0 pt) Score/Fall Risk Level 3 or more points = High Risk Oriented to surroundings, Maintained a safe environment, Educated pt \T\ family on fall prevention, incl call for assistance when getting out of bed, Assessed \T\ reinforced patient's understanding of fall precautions, Provided non-skid footwear. Abuse screen: Denies threats or abuse. Denies injuries from another. Nutritional screening: No deficits noted. Tuberculosis screening: No symptoms or risk factors identified. Assessment: 04:01 Reassessment: Patient and/or family updated on plan of care and expected duration. Pain jb4 level reassessed. Pt is oriented to self. Responds inappropriately to commands and comments. Respirations are even and unlabored with no s/s of pain or distress noted. 05:03 Reassessment: Pt is currently A\T\0x3 continues to have intermittent confusion. Provider jb4 is aware. Provider okayed pt for discharge home. reports feeling safe to take her home and that he will stay at home with her to help her. verbalized understanding of d/c and follow up instructions. Vital Signs: 02:16 BP 140 / 76; Pulse 77; Resp 17; Temp 98.9; Pulse Ox 94% ; Weight 72.57 kg; Height 5 ft. jj7 4 in. ; Pain 9/10; 04:02 BP 157 / 64; Pulse 70; Resp 18; Pulse Ox 98% on R/A; jb4 05:00 Pulse 76; Resp 16; Temp 98.2(O); Pulse Ox 100% on R/A; jb4 02:16 Body Mass Index 27.46 (72.57 kg, 162.56 cm) jj7 02:16 Pain Scale: Adult j7 ED Course: 02:14 Patient arrived in ED. gm2 02:21 Triage completed. jj7 02:21 Arm band placed on right wrist. jj7 02:38 Trudy Regan MD is Attending Physician. gb1 02:39 Patient has correct armband on for positive identification. Bed in low position. Call jw7 light in reach. Side rails up X2. Family accompanied patient. 03:14 Chest Single View XRAY In Process Unspecified. EDMS 03:45 Inserted saline lock: 20 gauge in right antecubital area, using aseptic technique. jb4 Blood collected. 03:45 Initial lab(s) drawn, by me, sent to lab. First set of blood cultures drawn by me. jb4 05:06 No provider procedures requiring assistance completed. IV discontinued, intact, jb4 bleeding controlled, No redness/swelling at site. Pressure dressing applied. Administered Medications: 04:07 Drug: NS 0.9% IV (30 ml/kg) 30 ml/kg IV at bolus once; Sepsis Protocol Route: IV; Rate: jw7 bolus; Site: right antecubital; Outcome: 04:42 Discharge ordered by MD. jones 05:06 Discharged to home via wheelchair, with family, jb4 05:06 Condition: stable 05:06 Discharge instructions given to patient, Instructed on discharge instructions, follow up and referral plans. medication usage, Demonstrated understanding of instructions, follow-up care, medications, Prescriptions given X 1, 05:06 Patient left the ED. jb4 Signatures: Dispatcher [employer] EDMS Bora Stone RN RN jb4 Amy Lares RN RN jw7 Kindra Germain RN RN jj7 Trudy Regan MD MD gb1 Amarilys Erazo 2
--- NOTE | 2023-05-15 09:50 | RAD REPORT ---
EXAM DESCRIPTION: RAD - Chest Single View - 05/15/2023 3:12 am CLINICAL HISTORY: The patient is 72 years old and is Female; COUGH TECHNIQUE: Frontal view of the chest. COMPARISON: No relevant prior studies available. FINDINGS: Lungs: Hazy opacification of the mid to lower right lung. Prominent interstitial markings which may indicate chronic changes and/or mild interstitial e samantha. Pleural space: Blunting of the right costophrenic angle which may indicate a right pleural effusi on. No pneumothorax. Heart: Unremarkable. Mediastinum: Unremarkable. Normal mediastinal contour. Bones/joints: No acute findings. IMPRESSION: 1. Hazy opacification of the mid to lower right lung. 2. Blunting of the right costophrenic angle which may indicate a right pleural effusion. 3. Prominent interstitial markings which may indicate chronic changes and/or mild interstitial emre a. Electronically signed by: Eliceo Velásquez MD 05/15/2023 03:43 AM GRAIN [employer]IXER Due to temporary technical issues with the PACS/Fluency reporting system, reports are being signed by the in house radiologist without review as a courtesy to ensure prompt reporting. The interpreting r adiologist is fully responsible for the content of the report.
[2023-05-15 10:50] VITALS: BP 157/64; TEMP 98.2; O2SAT 100
--- NOTE | 2023-05-16 13:26 | EKG ---
Test Date: 2023-05-15 Test Time: 03:55:40 Land Use Planner: ARSEN MEASUREMENT RESULTS: Intervals: Rate: 73 [place]: 132 QRSD: 82 QT: 382 QTc: 420 [place]: P: 45 [place]: 132 QRS: 16 T: 32 INTERPRETIVE STATEMENTS: Normal sinus rhythm Nonspecific ST abnormality Abnormal ECG Compared to ECG 07/26/2020 18:02:15 ST (T wave) deviation now present Ventricular premature complex(es) no longer present Electronically Signed On 05-16-23 13:23:51 CONTAINER REPAIRER by Adán Gambino
== END ==
LOC: ER 02:03
DX: N39.0 Urinary tract infection, site not specified (principal); R05.9 Cough, unspecified; Z11.52 Encounter for screening for COVID-19; Z88.5 Allergy status to narcotic agent
CPT/HCPCS: 93005; 87040 ×2; 87088; 85025; 81001; 87086; 36415; 85610; 83605; 85730; 80053; 87635; 87804 ×2; 71045; 96374; 99284; J7030